=== PATIENT | female | born 1940 | race Caucasian/White ===

== ENCOUNTER 2017-08-16 21:38 | Inpatient (IN) ==
[2017-08-16] MEDS ORDERED: 0.9 % Sodium Chloride 1,000 ML ONE (23:30)
[2017-08-16] MEDS ORDERED: *HR* OxyCODONE Immed Rel 5 MG TABLET PO PRN (23:33)
[2017-08-16] MEDS ORDERED: 0.9 % Sodium Chloride 1,000 ML IVC ONE (23:33)
[2017-08-16] MEDS ORDERED: Naloxone 0.4 MG/ML INJ IVP PRN (23:33)
[2017-08-16] MEDS ORDERED: *HR* HYDROcodone/Acet 5/325 mg TABLET PO PRN (23:33)
[2017-08-16] MEDS ORDERED: Acetaminophen 325 MG TABLET PO PRN (23:33)
[2017-08-16] MEDS ORDERED: Ondansetron 4 MG/2 ML VIAL IVP PRN (23:46)
--- NOTE | 2017-08-16 23:51 | Internal Med History&Physical ---
<BryantIsaiah farrell - Last Filed: 08/16/17 23:55> Date of Encounter: 08/16/17 Time of Encounter: 23:47 Assessment and Plan (1) UTI (urinary tract infection) Current visit: Yes Status: Acute - Strongly suspected urinary tract infection given symptoms - Complicated by left nephrolithiasis measuring 13 mm as well as large bladder calcification measuring 3.6 x 3.7 cm - Urinalysis and urine culture pending - Started on Rocephin and [facility] emergency room, will continue - Lactic acid of 6.8 most recently however patient does not meet sirs criteria - Received 3 L of normal saline. Borderline hypertension. Vitals otherwise normal - WBC of 27.4, BUN/creatinine of 47/2.77 - Blood cultures collected at [facility]. Plan - Given an additional liter of saline, no history of CHF - Repeat lab results pending, will trend - Continue ceftriaxone day #1 - We will have low threshold for central line placement if hypotension persists - Consult to urology for stones, appreciate recommendations Qualifiers: Urinary tract infection type: acute cystitis Hematuria presence: without hematuria Qualified Code(s): N30.00 - Acute cystitis without hematuria (2) Lactic acidosis Current visit: Yes Status: Acute - Lactic acid [facility] elevated at 6.6, trended to 6.8 - Likely secondary to urinary tract infection with suspicion of septic shock however patient does not meet sirs criteria - We will repeat lab results and give an additional 1 L saline bolus - Management as above (3) Acute renal failure Current visit: Yes Status: Acute - BUNs/creatinine in [facility] of 47/2.77 - Baseline creatinine within normal limits at 0.6- 0.8 - Possible etiologies include obstructive given large bladder stone as below versus hypotension and shock Plan - We will replete labs after patient has been given 3 L normal saline boluses - Consult to urology, appreciate recommendations - We will continue to monitor and avoid nephrotoxic agents Qualifiers: Acute renal failure type: unspecified Qualified Code(s): N17.9 - Acute kidney failure, unspecified (4) Nephrolithiasis Current visit: Yes Status: Acute - As above for urinary tract infection - Consult to urology, appreciate recommendations (5) Bladder stone Current visit: Yes Status: Acute As above for UTI CT scan in [facility] emergency room showed a large 3.6 cm x 3.7 cm bladder calcification Consult to urology (6) CAD (coronary artery disease) Current visit: Yes Status: Chronic - History of CAD status post stents and atrial pacemaker No current complaints chest pain Continue home medications Qualifiers: Coronary Disease-Associated Artery/Lesion type: [place] artery [place] vs. transplanted heart: [place] heart Associated angina: without angina Qualified Code(s): I25.10 - Atherosclerotic heart disease of [place] coronary artery without angina pectoris (7) Calcification of bladder Current visit: No Status: Acute (8) DVT prophylaxis Current visit: No Status: Acute Internal Medicine - H&P: HPI Chief complaint: Fall Admitted From: Hospital to Hospital Transfer Plans for Post Hospital Care: Transfer Care Home Care History of present illness: Ms. Benjamin is a 76 year old female with past medical history of hypertension, Alzheimer's dementia, CAD with atrial pacemaker, multiple sclerosis presented to [facility] after sustaining a fall at a [facility]. Patient states that she did not get dizzy, lightheaded, no loss of consciousness. She states that she was getting up to go to the bathroom and just lost her balance. She states that she has not been experiencing symptoms of fevers, chills, chest pain , shortness of breath, nausea, vomiting, abnormal bowel movements. She does admit to some dysuria as well as incontinence over the past couple days. Denies any symptoms of urgency, frequency. She is currently not experiencing any pain. She has had multiple episodes of urinary tract infections in the past which resolved with antibiotics. In the [facility] emergency room, patient's vitals were significant for low pressure of 77/41. EKG shows atrial paced rhythm. They did obtain a CT scan of the head which shows a possible remote lacunar infarction, a CT showed trace pleural effusions and left lower lobe atelectasis. Abdominal CT showed a large left renal pelvis stone measuring approximately 13 mm and nonobstructing as well as a large bladder stone measuring 3.6 x 3.7 cm. Also noted were diverticulosis and spondylosis of the cervical spine. Labs obtained were significant for a WBC of 27.4, potassium 5.5, BUN/creatinine of 47/2.77, lactic acid of 6.6 which was repeated to 6.8, troponin 0.09. She was given a total of 3 L of normal saline as well as ceftriaxone for presumed urinary tract infection. After 2 L of normal saline patient's blood pressure did remain tremulous with a systolic in the 80s to 90s. Due to concern of septic shock, and no availability for an ultrasound to place a central venous catheter, she was transferred to [facility] ICU. She did also receive glucagon as she is on a home beta raiza. On presentation to intensive care unit, vital signs significant for borderline hypotension. She will be given an additional 1 L normal saline bolus as well as maintenance fluids. Past Med Surg Social Fam HX - Past Medical History Medical history: dementia, hyperlipidemia, hypertension, myocardial infarction, valvular heart disease, other Psychiatric history: anxiety - Past Surgical History Surgical History: no surgical history - Social History Smoking Status: Never smoker Smokeless Tobacco Status: No Alcohol use: none Drug use: none Internal Medicine - H&P: Meds Amlodipine Besylate 10 mg PO DAILY 05/01/16 [History] Atorvastatin [Lipitor] 20 mg PO HS 05/01/16 [History] Clopidogrel Bisulfate [Plavix] 75 mg PO DAILY 05/01/16 [History] Donepezil HCl [Aricept] 10 mg PO DAILY 05/01/16 [History] Isosorbide MONOnitrate (24 HR) [Imdur] 60 mg PO DAILY 05/01/16 [History] Memantine HCl [Namenda Xr] 28 mg PO DAILY 05/01/16 [History] Metoprolol Tartrate [Lopressor] 50 mg PO BID 05/01/16 [History] Potassium Chloride [Klor-Con 10] 20 meq PO DAILY 05/01/16 [History] Multivitamin/Iron/Folic Acid [Centrum Complete Multivit Tab] 1 tab PO DAILY [History] HYDROcodone/Acet 5/325 mg [[place] 5-325 mg] 1 - 2 tab PO Q4H PRN 7 Days tablet 05/10/16 [Rx] Sennosides/Docusate Sodium [Senna Plus] 1 each PO BID tablet 05/10/16 [Rx] Memantine HCl [Namenda Xr] 28 mg PO DAILY 08/16/17 [History] 3 Allergy/AdvReac Type Severity Reaction Status Date / Time codeine AdvReac Gastrointestinal Verified 08/16/17 21:58 Upset Penicillins AdvReac Gastrointestinal Verified 08/16/17 21:58 Upset Sulfa (Sulfonamide AdvReac Gastrointestinal Verified 08/16/17 21:58 Antibiotics) Upset sulfamethoxazole AdvReac Gastrointestinal Verified 08/16/17 21:58 [From Bactrim] Upset trimethoprim [From Bactrim] AdvReac Gastrointestinal Verified 08/16/17 21:58 Upset All Systems PM: A 10-system review of systems was performed and is negative for pertinent findings except as documented above in the HPI. Review of systems: - Constitutional: Denies fevers, chills, weight loss, generalized fatigue - Head/Neck: Admits to headache. Denies neck stiffness - CVS: Denies chest pain, palpitations, ARCHER, orthopnea, edema, PND, - Pulm: Admits to chronic cough. Denies SOB,sputum, hematemesis, wheezing - GI: Denies abdominal pain, anorexia, nausea, vomiting, diarrhea, constipation , melena - : Admits to dysuria, incontinence. Denies increased frequency, urgency, hematuria, - MSK: Denies joint pain, limited ROM - Skin: Denies rashes, ulcers, color changes, - Neuro: Denies paresthesias, focal deficits, ataxia, numbness, tingling. - Constitutional Vitals: Pulse BP 98 130/70 08/16/17 23:20 08/16/17 23:20 Exam: Gen.: Vitals noted. No acute distress. AAOx3. Resting comfortably in bed, musty odor present on examination HEENT: PERRL/EOMI, oropharynx clear, Normocephalic, atraumatic. Mildly dry mucous membranes Cardiac: RRR, no murmur, +S1/S2 Pulmonary: CTA bilaterally, no wheezes, rales or rhonchi, equal chest expansion Abdomen: soft, nontender, BS noted, no guarding Extremities: no BLE edema, nontender calf, no cyanosis or clubbing Neuro: A&Ox3, moves all extremities, no focal deficits Psych: Appropriate mood and behavior <Loren Brown - Last Filed: 08/17/17 03:57> Date of Encounter: 08/16/17 Internal Medicine - H&P: HPI History of present illness: Ms. Benjamin is a 76 year old female All Systems PM: A 10-system review of systems was performed and is negative for pertinent findings except as documented above in the HPI. - Constitutional Vitals: Temp Pulse Resp BP Pulse Ox 98.4 F 70 17 114/77 90 08/17/17 00:00 08/17/17 03:37 08/17/17 03:37 08/17/17 03:37 08/17/17 03:37 Internal Med - H&P Results - Labs CBC & Chem 7: 08/17/17 00:46 08/17/17 00:46 Labs: Short CBC 08/17/17 Range/Units 00:46 WBC 19.6 H (4.3-11.1) K/mcL Hgb 10.2 L D (11.5-15.4) g/dL Hct 31.8 L (35.3-44.9) % Plt Count 79 L (140-400) K/mcL Neutrophils # 16.8 H (1.6-8.9) K/mcL BMP 08/17/17 00:46 Sodium 144 Potassium 4.4 Chloride 120 H Carbon Dioxide 16 L BUN 44 H Creatinine 1.98 H Glucose 104 Calcium 7.9 L Cardiac Enzymes 08/17/17 Range/Units 00:46 Troponin I 0.07 H* (< 0.04) ng/mL Urine 08/16/17 Range/Units 23:50 Urine Color Red A (Yellow) Urine Clarity Turbid A (Clear) Urine pH 7.5 (5.0-8.0) pH Units Ur Specific [place] 1.012 (1.010-1.025) Urine Protein 100 H (Neg-Trace) mg/dL Urine Glucose (UA) Normal (Normal) mg/dL - Attending Attestation I examined this patient and my medical decision-making was reviewed with the Resident Physician Dr. Douglas. I agree with the documented findings, disposition and treatment plan as described except to the extent set forth below. Ms. Benjamin is a 76 year old female with past medical history of hypertension, Alzheimer's dementia, CAD with atrial pacemaker, multiple sclerosis presented to [facility] after sustaining a fall at a [facility]. She happened to have sepsis with UTI and later pt BP dropped down to 80's. So pt was transferred to our ICU for further care. Now pt is alert, awake and Oriented to self. Denied any CP / SOB. Gen: A, A, O x to self Chest: Diminished BS b/l no crackles Heart: S1S2+ A/p 1. Septic shock 2. UTI Significantly elevated Lactic acid @ 6.8 BP Improving with IV hydration continue aggressive IV hydration empirical abx Rocephin Blood cx, urine cx - P 3. OMI - due to sepsis + Dehydration cont IV hydration close monitor Cr 4. Elevated troponin due to demand ischemia with septic shock cont trend on trop no further work needed 5. Large bladder calculi , Left renal calculi Will consult Urology in AM
[2017-08-17 00:22] LABS: Bilirubin,Urine Negative (Negative); Blood,Urine Large (Negative); Clarity,Urine Turbid (Clear); Color,Urine Red (Yellow); Glucose,Urine (UA) Normal (Normal); Ketones,Urine Trace mg/dL (Negative); Leukocyte Esterase,Urine Large (Negative); Nitrite,Urine Negative (Negative); PH,Urine 7.5 pH Units (5.0-8.0); Protein,Urine 100 mg/dL (Neg-Trace); Specific Gravity,Urine 1.012 (1.010-1.025); Urobilinogen,Urine Normal (Normal)
[2017-08-17] MEDS: 0.9 % Sodium Chloride 1,000 ML IVC SCH ×2 (00:39→10:59)
[2017-08-17 00:48] LABS: Bacteria,Urine Present per hpf (None-Few); WBC,Urine Present per hpf (0-3)
[2017-08-17 00:49] LABS: RBC,Urine Present per hpf (0-3)
[2017-08-17 00:59] LABS: Basophils % 0.2 %; Hemoglobin 10.2 g/dL (11.5-15.4); Red Cell Distribution Width 14.7 % (11.5-14.5)
[2017-08-17 01:01] LABS: Hematocrit 31.8 % (35.3-44.9); Immature Granulocytes % 3.1 % (0-4); Immature Platelets 4.9 % (1.1-6.1); Lymphocytes # 1.5 K/mcL (0.6-4.6); Lymphocytes % 7.4 %; Mean Corpuscular HGB Conc 32.1 g/dL (31.6-35.5); Mean Corpuscular Hemoglobin 31.3 pg (28.0-33.3); Mean Corpuscular Volume 97.5 fL (83.0-100.0); Mean Platelet Volume 11.3 fL (9.4-12.4); Monocytes # 0.7 K/mcL (0.0-1.3); Monocytes % 3.4 %; Red Blood Count 3.26 M/mcL (3.82-4.97); Segmented Neutrophils % 85.9 %
[2017-08-17 01:06] LABS: Neutrophils # 16.8 K/mcL (1.6-8.9); Platelet Count 79 K/mcL (140-400)
[2017-08-17 01:20] LABS: Calcium 7.9 mg/dL (8.6-10.3); Potassium 4.4 mEq/L (3.5-5.1)
[2017-08-17 02:11] LABS: Toxic Granulation Present (Not Present)
[2017-08-17 02:12] LABS: Hypochromasia Present (Not Present); Platelet Estimate Decreased (Normal); Toxic Vacuolation Present (Not Present)
[2017-08-17 05:24] LABS: Basophils % 0.3 %; Mean Corpuscular HGB Conc 31.3 g/dL (31.6-35.5); Mean Corpuscular Volume 100.5 fL (83.0-100.0); Mean Platelet Volume 11.7 fL (9.4-12.4); Red Cell Distribution Width 14.8 % (11.5-14.5)
[2017-08-17 05:26] LABS: Basophils # 0.1 K/mcL (0.0-0.2); Hematocrit 40.3 % (35.3-44.9); Hemoglobin 12.6 g/dL (11.5-15.4); Immature Granulocytes % 3.8 % (0-4); Immature Platelets 5.5 % (1.1-6.1); Lymphocytes # 1.4 K/mcL (0.6-4.6); Lymphocytes % 6.8 %; Mean Corpuscular Hemoglobin 31.4 pg (28.0-33.3); Monocytes # 0.7 K/mcL (0.0-1.3); Monocytes % 3.5 %; Neutrophils # 17.2 K/mcL (1.6-8.9); Nucleated Red Blood Cells 0.1 /100 WBC (0); Red Blood Count 4.01 M/mcL (3.82-4.97); Segmented Neutrophils % 85.6 %
[2017-08-17 05:28] LABS: Platelet Count 81 K/mcL (140-400)
[2017-08-17 05:49] LABS: Calcium 8.9 mg/dL (8.6-10.3); Magnesium 1.8 mg/dL (1.6-2.6); Potassium 4.6 mEq/L (3.5-5.1)
[2017-08-17] MEDS ORDERED: *HR* Heparin 5,000 UNIT/ML VIAL SQ SCH (06:00)
[2017-08-17 06:12] LABS: Platelet Estimate Decreased (Normal)
[2017-08-17] MEDS ORDERED: Vancomycin Oral Soln 250 MG/5 ML UDC PO SCH (09:00)
[2017-08-17] MEDS ORDERED: Sennosides/Docusate Sodium TABLET PO SCH (09:00)
[2017-08-17] MEDS ORDERED: *HR* Dextrose 50 % in Water (Syg) 50 ML SYRINGE IVP PRN ×2 (10:51→11:16)
[2017-08-17] MEDS ORDERED: Dextrose Gel 15 GM/37.5 ML TUBE PO PRN ×4 (10:51→11:16)
[2017-08-17] MEDS ORDERED: D5% in Water 1,000 ML IVC PRN ×2 (10:51→11:16)
[2017-08-17] MEDS ORDERED: Acetaminophen 325 MG TABLET PO PRN (11:16)
[2017-08-17] MEDS ORDERED: 0.9 % Sodium Chloride 1,000 ML IVC SCH (11:16)
[2017-08-17] MEDS ORDERED: *HR* OxyCODONE Immed Rel 5 MG TABLET PO PRN (11:16)
[2017-08-17] MEDS ORDERED: Naloxone 0.4 MG/ML INJ IVP PRN (11:16)
[2017-08-17] MEDS ORDERED: *HR* HYDROcodone/Acet 5/325 mg TABLET PO PRN (11:16)
[2017-08-17] MEDS ORDERED: Ondansetron 4 MG/2 ML VIAL IVP PRN (11:16)
--- NOTE | 2017-08-17 13:07 | Internal Med Progress Note ---
Date of Encounter: 08/17/17 Time of Encounter: 11:30 - Assessment and plan (1) Severe sepsis Current Visit: Yes Status: Acute Assessment and plan: Patient presenting with severe sepsis due to Escherichia coli bacteremia. Blood culture positive for Escherichia coli. Patient also has underlying C. difficile colitis. Treating with IV Rocephin for the Escherichia coli bacteremia and UTI. Patient is receiving vancomycin orally for C. difficile colitis. Blood pressure has improved but lactic acid remains elevated. Continue IV fluids. Monitor vital signs closely. High risk for complications. (2) UTI (urinary tract infection) Current Visit: Yes Status: Acute Assessment and plan: With sepsis and bacteremia from Escherichia coli. Continue current antibiotics Qualifiers: Urinary tract infection type: acute cystitis Hematuria presence: without hematuria Qualified Code(s): N30.00 - Acute cystitis without hematuria (3) C. difficile colitis Current Visit: Yes Status: Acute Assessment and plan: Continue oral vancomycin. IV hydration. Patient developing hyperchloremic acidosis with normal saline. Will change fluids to lactated Ringer's. (4) Elevated troponin Current Visit: Yes Status: Acute Assessment and plan: Likely due to demand ischemia. Remains adynamic. Troponin at 0.07. No chest pain. (5) Acute renal failure Current Visit: Yes Status: Acute Assessment and plan: Due to severe sepsis. Renal function is improving. Continue IV fluids. Follow renal function closely. Avoid nephrotoxic agents. Qualifiers: Acute renal failure type: with acute tubular necrosis Qualified Code(s): N17.0 - Acute kidney failure with tubular necrosis (6) CAD (coronary artery disease) Current Visit: Yes Status: Chronic Assessment and plan: Continue home medications. On Plavix. Qualifiers: Coronary Disease-Associated Artery/Lesion type: [place] artery [place] vs. transplanted heart: [place] heart Associated angina: without angina Qualified Code(s): I25.10 - Atherosclerotic heart disease of [place] coronary artery without angina pectoris (7) DVT prophylaxis Current Visit: Yes Status: Acute Assessment and plan: With subcutaneous heparin (8) Lactic acidosis Current Visit: Yes Status: Acute Assessment and plan: Improving. 2.9 today. We will continue to trend - Time Spent With Patient Total time spent is greater than 50% in coordination of care (as documented) at patient's floor/unit and/or counseling patient: - Subjective Interval history: Patient is feeling much better today. Abdominal pain improved. Having diarrhea. No fever or chills overnight. No nausea or vomiting. Denies any palpitations or dizziness. - Constitutional Vitals: Temp Pulse Resp BP Pulse Ox 98.9 F 70 14 96/35 96 08/17/17 12:18 08/17/17 08:00 08/17/17 10:00 08/17/17 10:00 08/17/17 10:00 General appearance: Present: cooperative, A&O X 3, obese, answers questions appropriately - Neck Neck exam general surgery: Present: supple, trachea midline. Absent: lymphadenopathy - Respiratory Respiratory exam: Present: CTAB. Absent: accessory muscle use, rales, rhonchi, wheezes - Cardiovascular Cardiovascular exam: Present: RRR, +S1, +S2. Absent: diastolic murmur, gallop, rubs, systolic murmur - GI/Abdominal GI/Abdominal exam: Present: normal bowel sounds, soft, no peritoneal signs. Absent: distended, tenderness - Extremities Exam Extremities exam: Present: warm, radial pulses palpable and symmetrical. Absent : calf tenderness, cyanotic, pedal edema - Neurological Exam Neurological exam: Present: alert, oriented X3, no focal deficits. Absent: pronater drift, facial droop, speech deficit - Skin Skin exam: Present: dry, intact Internal Medicine: Result - Labs CBC & Chem 7: 08/17/17 05:12 08/17/17 05:12 Labs: Short CBC 08/17/17 08/17/17 Range/Units 00:46 05:12 WBC 19.6 H 20.1 H (4.3-11.1) K/mcL Hgb 10.2 L D 12.6 D (11.5-15.4) g/dL Hct 31.8 L 40.3 (35.3-44.9) % Plt Count 79 L 81 L (140-400) K/mcL Neutrophils # 16.8 H 17.2 H (1.6-8.9) K/mcL BMP 08/17/17 08/17/17 00:46 05:12 Sodium 144 144 Potassium 4.4 4.6 Chloride 120 H 117 H Carbon Dioxide 16 L 17 L BUN 44 H 43 H Creatinine 1.98 H 1.93 H Glucose 104 68 L Calcium 7.9 L 8.9 Cardiac Enzymes 08/17/17 08/17/17 Range/Units 00:46 07:31 Troponin I 0.07 H* 0.07 H* (< 0.04) ng/mL Urine 08/16/17 Range/Units 23:50 Urine Color Red A (Yellow) Urine Clarity Turbid A (Clear) Urine pH 7.5 (5.0-8.0) pH Units Ur Specific [place] 1.012 (1.010-1.025) Urine Protein 100 H (Neg-Trace) mg/dL Urine Glucose (UA) Normal (Normal) mg/dL Consult Discharge Plan - Plan Referrals: Ha Evans MD [Primary Care Provider] -
[2017-08-17] MEDS: Vancomycin Oral Soln 250 MG/5 ML UDC PO SCH ×3 (14:52→21:52)
[2017-08-17] MEDS: Ringers Solution, Lactated 1,000 ML IVC SCH (14:53)
--- NOTE | 2017-08-17 17:51 | Urology - Consult Note ---
Date of Encounter: 08/17/17 Time of Encounter: 17:48 - Assessment and Plan (1) Bladder stone Current Visit: Yes Status: Acute Assessment and plan: I discussed management of her bladder stone with a cystolitholapaxy. This can be done once her urinary tract infection has been well cleared. She should continue on IV antibiotics for now. Await sensitivities. (2) Nephrolithiasis Current Visit: Yes Status: Acute Assessment and plan: We can treat her left-sided stone with a left ureteroscopy once her infection is cleared. At this point, I do not think she needs urgent placement of stent. I will continue to monitor with you. If her clinical status worsens, then I can place a stent if necessary. (3) UTI (urinary tract infection) Current Visit: Yes Status: Acute Assessment and plan: Continue IV antibiotics. Await urine culture results. Qualifiers: Urinary tract infection type: acute cystitis Hematuria presence: without hematuria Qualified Code(s): N30.00 - Acute cystitis without hematuria Urology CN:HPI Consult date: 08/17/17 Reason for consult Urology: Other (UTI, bladder stone) History of present illness: 76-year-old woman presents with concern for a urinary tract infection with a bladder stone and kidney stone on the left side. She was transferred to the intensive care unit for a UTI with sepsis. A blood culture was positive for Escherichia coli. During her workup she had a CT scan which showed a 3.7 cm bladder stone as well as a nonobstructing left renal stone. Today, she says she is feeling better. She is not having much in way of pain. She says she is urinating on her own. Past Med Surg Social Fam HX - Past Medical History Medical history: dementia, hyperlipidemia, hypertension, myocardial infarction, valvular heart disease, other Psychiatric history: anxiety - Past Surgical History Surgical History: no surgical history - Social History Smoking Status: Never smoker Smokeless Tobacco Status: No Alcohol use: none Drug use: none - Family History Daughter Hx Family Genitourinary Disorders: No Medications and Allergies Amlodipine Besylate 10 mg PO DAILY 05/01/16 [History] Atorvastatin [Lipitor] 20 mg PO HS 05/01/16 [History] Clopidogrel Bisulfate [Plavix] 75 mg PO DAILY 05/01/16 [History] Donepezil HCl [Aricept] 10 mg PO DAILY 05/01/16 [History] Isosorbide MONOnitrate (24 HR) [Imdur] 60 mg PO DAILY 05/01/16 [History] Metoprolol Tartrate [Lopressor] 50 mg PO BID 05/01/16 [History] Potassium Chloride [Klor-Con 10] 20 meq PO DAILY 05/01/16 [History] Multivitamin/Iron/Folic Acid [Centrum Complete Multivit Tab] 1 tab PO DAILY [History] HYDROcodone/Acet 5/325 mg [[place] 5-325 mg] 1 - 2 tab PO Q4H PRN 7 Days tablet 05/10/16 [Rx] Sennosides/Docusate Sodium [Senna Plus] 1 each PO BID tablet 05/10/16 [Rx] Memantine HCl [Namenda Xr] 28 mg PO DAILY 08/16/17 [History] Oxybutynin Chloride [Ditropan Xl] 5 mg PO DAILY 08/17/17 [History] Pantoprazole Sodium 40 mg PO DAILY 08/17/17 [History] 3 Allergy/AdvReac Type Severity Reaction Status Date / Time codeine AdvReac Gastrointestinal Verified 08/16/17 21:58 Upset Penicillins AdvReac Gastrointestinal Verified 08/16/17 21:58 Upset Sulfa (Sulfonamide AdvReac Gastrointestinal Verified 08/16/17 21:58 Antibiotics) Upset sulfamethoxazole AdvReac Gastrointestinal Verified 08/16/17 21:58 [From Bactrim] Upset trimethoprim [From Bactrim] AdvReac Gastrointestinal Verified 08/16/17 21:58 Upset Review of Systems - Constitutional chills, fever(s) - EENT Nose, mouth and throat: no dizziness - Cardiovascular no chest pain - Respiratory no dyspnea - Gastrointestinal no nausea, no vomiting - Genitourinary Genitourinary: no flank pain, no hematuria - Musculoskeletal no back pain - Integumentary no erythema, no rash - Neurological no weakness - Psychiatric no suicidal ideation - Hematologic/Lymphatic no easy bleeding - Allergic/Immunologic no wheezing Exam Initial Vital Signs Pulse Resp BP Pulse Ox 98 14 130/70 97 08/16/17 23:20 08/16/17 23:20 08/16/17 23:20 08/16/17 23:20 - General physical appearance Present: well developed, well nourished, no distress - Eyes Absent: icteric - ENT Present: normal nares - Neck Present: trachea midline - Respiratory Present: normal respiratory effort - Cardiovascular Cardiovascular exam IM: RRR - Abdomen Abdomen: Present: soft - Integumentary Present: no rash - Neurologic Present: normal coordination - Musculoskeletal Present: other (No peripheral edema) Urology Results - Labs 08/17/17 05:12 08/17/17 05:12 Abnormal lab results WBC 20.1 K/mcL (4.3-11.1) H 08/17/17 05:12 MCV 100.5 fL (83.0-100.0) H 08/17/17 05:12 MCHC 31.3 g/dL (31.6-35.5) L 08/17/17 05:12 RDW 14.8 % (11.5-14.5) H 08/17/17 05:12 Plt Count 81 K/mcL (140-400) L 08/17/17 05:12 Neutrophils # 17.2 K/mcL (1.6-8.9) H 08/17/17 05:12 Nucleated RBCs/100 WBC 0.1 /100 WBC (0) H 08/17/17 05:12 Toxic Granulation Present (Not Present) A 08/17/17 00:46 Toxic Vacuolation Present (Not Present) A 08/17/17 00:46 Platelet Estimate Decreased (Normal) L 08/17/17 05:12 Hypochromasia Present (Not Present) A 08/17/17 00:46 Chloride 117 mEq/L (98-107) H 08/17/17 05:12 Carbon Dioxide 17 mEq/L (23-29) L 08/17/17 05:12 BUN 43 mg/dL (8-23) H 08/17/17 05:12 Creatinine 1.93 mg/dL (0.60-1.20) H 08/17/17 05:12 Est GFR ( Amer) 31 (> 60) L 08/17/17 05:12 Est GFR (Non-Af Amer) 25 (> 60) L 08/17/17 05:12 Glucose 68 mg/dL (70-105) L 08/17/17 05:12 Calculated Osmolality 307 (280-300) H 08/17/17 05:12 Lactic Acid 2.9 mmol/L (0.5-2.2) H 08/17/17 12:26 Troponin I 0.07 ng/mL (< 0.04) H* 08/17/17 07:31 Urine Color Red (Yellow) A 08/16/17 23:50 Urine Clarity Turbid (Clear) A 08/16/17 23:50 Urine Protein 100 mg/dL (Neg-Trace) H 08/16/17 23:50 Urine Ketones Trace mg/dL (Negative) H 08/16/17 23:50 Urine Blood Large (Negative) H 08/16/17 23:50 Ur Leukocyte Esterase Large (Negative) H 08/16/17 23:50 Diabetes panel 08/17/17 08/17/17 Range/Units 00:46 05:12 Sodium 144 144 (136-145) mEq/L Potassium 4.4 4.6 (3.5-5.1) mEq/L Chloride 120 H 117 H (98-107) mEq/L Carbon Dioxide 16 L 17 L (23-29) mEq/L BUN 44 H 43 H (8-23) mg/dL Creatinine 1.98 H 1.93 H (0.60-1.20) mg/dL Glucose 104 68 L (70-105) mg/dL Calcium 7.9 L 8.9 (8.6-10.3) mg/dL Calcium panel 08/17/17 08/17/17 Range/Units 00:46 05:12 Calcium 7.9 L 8.9 (8.6-10.3) mg/dL Pituitary panel 08/17/17 08/17/17 Range/Units 00:46 05:12 Sodium 144 144 (136-145) mEq/L Potassium 4.4 4.6 (3.5-5.1) mEq/L Chloride 120 H 117 H (98-107) mEq/L Carbon Dioxide 16 L 17 L (23-29) mEq/L BUN 44 H 43 H (8-23) mg/dL Creatinine 1.98 H 1.93 H (0.60-1.20) mg/dL Glucose 104 68 L (70-105) mg/dL Calcium 7.9 L 8.9 (8.6-10.3) mg/dL Adrenal panel 08/17/17 08/17/17 Range/Units 00:46 05:12 Sodium 144 144 (136-145) mEq/L Potassium 4.4 4.6 (3.5-5.1) mEq/L Chloride 120 H 117 H (98-107) mEq/L Carbon Dioxide 16 L 17 L (23-29) mEq/L BUN 44 H 43 H (8-23) mg/dL Creatinine 1.98 H 1.93 H (0.60-1.20) mg/dL Glucose 104 68 L (70-105) mg/dL Calcium 7.9 L 8.9 (8.6-10.3) mg/dL All other labs normal. - Imaging CT scan - abdomen: report reviewed, image reviewed CT scan - pelvis: report reviewed, image reviewed Consult Discharge Plan - Plan Referrals: Ha Evans MD [Primary Care Provider] -
[2017-08-17] MEDS: *HR* Heparin 5,000 UNIT/ML VIAL SQ SCH (19:36)
[2017-08-17] MEDS: Sennosides/Docusate Sodium TABLET PO SCH (20:26)
[2017-08-17] MEDS: cefTRIAXone 2,000 MG in Water for inj. (sterile) 20 ML 20 ML IVP SCH (20:26)
[2017-08-17] MEDS ORDERED: cefTRIAXone 2,000 MG in Water for inj. (sterile) 20 ML 20 ML IVP SCH (21:00)
[2017-08-18] MEDS: Ringers Solution, Lactated 1,000 ML IVC SCH ×2 (00:24→08:56)
[2017-08-18] MEDS: Vancomycin Oral Soln 250 MG/5 ML UDC PO SCH ×5 (01:32→20:46)
[2017-08-18] MEDS: *HR* Heparin 5,000 UNIT/ML VIAL SQ SCH ×2 (05:04→17:10)
[2017-08-18 05:17] LABS: Basophils % 0.2 %; Eosinophils % 0.2 %; Hematocrit 32.5 % (35.3-44.9); Hemoglobin 10.7 g/dL (11.5-15.4); Immature Granulocytes % 2.7 % (0-4); Immature Platelets 4.9 % (1.1-6.1); Lymphocytes % 5.4 %; Mean Corpuscular HGB Conc 32.9 g/dL (31.6-35.5); Mean Corpuscular Hemoglobin 31.2 pg (28.0-33.3); Mean Corpuscular Volume 94.8 fL (83.0-100.0); Mean Platelet Volume 12.1 fL (9.4-12.4); Monocytes # 0.7 K/mcL (0.0-1.3); Monocytes % 3.9 %; Neutrophils # 15.9 K/mcL (1.6-8.9); Red Blood Count 3.43 M/mcL (3.82-4.97); Red Cell Distribution Width 14.4 % (11.5-14.5); Segmented Neutrophils % 87.6 %
[2017-08-18 05:38] LABS: BUN/Creatinine Ratio 31 (6-26); Blood Urea Nitrogen 29 mg/dL (8-23); Calcium 8.8 mg/dL (8.6-10.3); Carbon Dioxide 20 mEq/L (23-29); Chloride 115 mEq/L (98-107); Glucose 98 mg/dL (70-105); Osmolality,Calculated 302 (280-300); Potassium 2.9 mEq/L (3.5-5.1); Sodium 143 mEq/L (136-145); eGFR For African Americans > 60 (> 60); eGFR For Non-African Americans 58 (> 60)
[2017-08-18 05:42] LABS: Platelet Count 70 K/mcL (140-400)
[2017-08-18 05:44] LABS: Platelet Estimate Decreased (Normal)
[2017-08-18] MEDS ORDERED: Potassium Chloride 40 MEQ, Lidocaine 1% 2 ML in D5% in Water 500 ML IVPB ONE (05:54)
[2017-08-18] MEDS: Sennosides/Docusate Sodium TABLET PO SCH ×2 (08:55→20:47)
--- NOTE | 2017-08-18 13:51 | Internal Med Progress Note ---
Date of Encounter: 08/18/17 Time of Encounter: 10:25 - Assessment and plan (1) Severe sepsis Current Visit: Yes Status: Acute Assessment and plan: Due to urinary tract infection with nephrolithiasis. With Escherichia coli bacteremia. Continue ceftriaxone. Sensitivity results still pending. Clinically patient is doing better. WBC count is improving. Treating for C. difficile colitis with oral vancomycin. Moderate risk for complications at this time. (2) UTI (urinary tract infection) Current Visit: Yes Status: Acute Assessment and plan: Continue current antibiotics. Urology consult appreciated Qualifiers: Urinary tract infection type: acute cystitis Hematuria presence: without hematuria Qualified Code(s): N30.00 - Acute cystitis without hematuria (3) C. difficile colitis Current Visit: Yes Status: Acute Assessment and plan: On oral vancomycin. Frequency of diarrhea appears to be improving. We will replace electrolytes. (4) Elevated troponin Current Visit: Yes Status: Acute Assessment and plan: adynamic likely related to underlying sepsis and demand ischemia. (5) Acute renal failure Current Visit: Yes Status: Resolved Assessment and plan: Now resolved. Creatinine back to normal. Will stop IV fluids at this time. Qualifiers: Acute renal failure type: with acute tubular necrosis Qualified Code(s): N17.0 - Acute kidney failure with tubular necrosis (6) CAD (coronary artery disease) Current Visit: Yes Status: Chronic Assessment and plan: Continue Plavix Qualifiers: Coronary Disease-Associated Artery/Lesion type: [place] artery [place] vs. transplanted heart: [place] heart Associated angina: without angina Qualified Code(s): I25.10 - Atherosclerotic heart disease of [place] coronary artery without angina pectoris (7) DVT prophylaxis Current Visit: Yes Status: Acute Assessment and plan: On subcutaneous heparin (8) Lactic acidosis Current Visit: Yes Status: Resolved - Time Spent With Patient Total time spent is greater than 50% in coordination of care (as documented) at patient's floor/unit and/or counseling patient: - Subjective Interval history: Patient denies any abdominal pain. No nausea or vomiting. Diarrhea improving. Doing better overall. No fever or chills reported overnight. - Constitutional Vitals: Temp Pulse Resp BP Pulse Ox 99.7 F H 84 16 140/83 94 08/18/17 10:53 08/18/17 10:53 08/18/17 10:53 08/18/17 10:53 08/18/17 10:53 General appearance: Present: cooperative, A&O X 3, obese, answers questions appropriately - Neck Neck exam general surgery: Present: supple, trachea midline. Absent: lymphadenopathy - Respiratory Respiratory exam: Present: CTAB. Absent: accessory muscle use, rales, rhonchi, wheezes - Cardiovascular Cardiovascular exam: Present: RRR, +S1, +S2. Absent: diastolic murmur, gallop, rubs, systolic murmur - GI/Abdominal GI/Abdominal exam: Present: normal bowel sounds, soft, no peritoneal signs. Absent: distended, tenderness - Extremities Exam Extremities exam: Present: warm, radial pulses palpable and symmetrical. Absent : calf tenderness, cyanotic, pedal edema - Neurological Exam Neurological exam: Present: alert, oriented X3, no focal deficits. Absent: facial droop, speech deficit Internal Medicine: Result - Labs CBC & Chem 7: 08/18/17 05:01 08/18/17 05:01 Labs: Short CBC 08/18/17 Range/Units 05:01 WBC 18.1 H (4.3-11.1) K/mcL Hgb 10.7 L D (11.5-15.4) g/dL Hct 32.5 L (35.3-44.9) % Plt Count 70 L (140-400) K/mcL Neutrophils # 15.9 H (1.6-8.9) K/mcL BMP 08/18/17 05:01 Sodium 143 Potassium 2.9 L D Chloride 115 H Carbon Dioxide 20 L BUN 29 H Creatinine 0.94 Glucose 98 Calcium 8.8 Consult Discharge Plan - Plan Referrals: Ha Evans MD [Primary Care Provider] -
[2017-08-18] MEDS: cefTRIAXone 2,000 MG in Water for inj. (sterile) 20 ML 20 ML IVP SCH (20:45)
[2017-08-18] MEDS ORDERED: *HR* FentaNYL (PF) 100 MCG/2 ML VIAL IVP PRN (21:01)
[2017-08-19 04:13] LABS: Basophils % 0.2 %; Hemoglobin 10.8 g/dL (11.5-15.4); Immature Granulocytes % 0.8 % (0-4); Mean Corpuscular Volume 92.4 fL (83.0-100.0)
[2017-08-19 04:15] LABS: Eosinophils # 0.1 K/mcL (0.0-0.6); Eosinophils % 0.5 %; Hematocrit 32.7 % (35.3-44.9); Immature Platelets 7.4 % (1.1-6.1); Lymphocytes % 8.1 %; Mean Corpuscular Hemoglobin 30.5 pg (28.0-33.3); Mean Platelet Volume 11.8 fL (9.4-12.4); Monocytes # 0.6 K/mcL (0.0-1.3); Monocytes % 5.2 %; Neutrophils # 10.5 K/mcL (1.6-8.9); Red Blood Count 3.54 M/mcL (3.82-4.97); Red Cell Distribution Width 14.1 % (11.5-14.5); Segmented Neutrophils % 85.2 %
[2017-08-19 04:32] LABS: BUN/Creatinine Ratio 22 (6-26); Blood Urea Nitrogen 14 mg/dL (8-23); Calcium 8.8 mg/dL (8.6-10.3); Carbon Dioxide 23 mEq/L (23-29); Chloride 111 mEq/L (98-107); Glucose 84 mg/dL (70-105); Osmolality,Calculated 294 (280-300); Potassium 2.7 mEq/L (3.5-5.1); Sodium 142 mEq/L (136-145); eGFR For African Americans > 60 (> 60); eGFR For Non-African Americans > 60 (> 60)
[2017-08-19 05:11] LABS: Platelet Count 68 K/mcL (140-400)
[2017-08-19 05:12] LABS: Platelet Estimate Decreased (Normal)
[2017-08-19] MEDS: *HR* Heparin 5,000 UNIT/ML VIAL SQ SCH ×2 (05:46→17:47)
[2017-08-19] MEDS: Sennosides/Docusate Sodium TABLET PO SCH ×2 (09:49→21:45)
[2017-08-19] MEDS: Vancomycin Oral Soln 250 MG/5 ML UDC PO SCH ×4 (09:50→21:46)
--- NOTE | 2017-08-19 09:54 | Urology Progress Note ---
Date of Encounter: 08/19/17 Time of Encounter: 09:53 - Assessment and Plan (1) Bladder stone Current Visit: Yes Status: Acute Assessment and plan: 76-year-old woman with a large bladder stone and left renal stone. Her infection is clearing. I will proceed with a cystolitholapaxy and left ureteroscopic stone extraction as an outpatient. Urology will sign off. Please call with any questions. (2) Nephrolithiasis Current Visit: Yes Status: Acute (3) UTI (urinary tract infection) Current Visit: Yes Status: Acute Qualifiers: Urinary tract infection type: acute cystitis Hematuria presence: without hematuria Qualified Code(s): N30.00 - Acute cystitis without hematuria Progress Note Narrative: Patient transferred from the ICU yesterday. She is doing well. No fevers overnight. Objective Initial Vital Signs Pulse Resp BP Pulse Ox 98 14 130/70 97 08/16/17 23:20 08/16/17 23:20 08/16/17 23:20 08/16/17 23:20 - General physical appearance Present: well developed, well nourished, no distress - Respiratory Present: normal respiratory effort - Abdomen Present: soft - Labs 08/19/17 03:26 08/19/17 03:26 Diabetes panel 08/19/17 Range/Units 03:26 Sodium 142 (136-145) mEq/L Potassium 2.7 L (3.5-5.1) mEq/L Chloride 111 H (98-107) mEq/L Carbon Dioxide 23 (23-29) mEq/L BUN 14 (8-23) mg/dL Creatinine 0.65 (0.60-1.20) mg/dL Glucose 84 (70-105) mg/dL Calcium 8.8 (8.6-10.3) mg/dL Calcium panel 08/19/17 Range/Units 03:26 Calcium 8.8 (8.6-10.3) mg/dL Pituitary panel 08/19/17 Range/Units 03:26 Sodium 142 (136-145) mEq/L Potassium 2.7 L (3.5-5.1) mEq/L Chloride 111 H (98-107) mEq/L Carbon Dioxide 23 (23-29) mEq/L BUN 14 (8-23) mg/dL Creatinine 0.65 (0.60-1.20) mg/dL Glucose 84 (70-105) mg/dL Calcium 8.8 (8.6-10.3) mg/dL Adrenal panel 08/19/17 Range/Units 03:26 Sodium 142 (136-145) mEq/L Potassium 2.7 L (3.5-5.1) mEq/L Chloride 111 H (98-107) mEq/L Carbon Dioxide 23 (23-29) mEq/L BUN 14 (8-23) mg/dL Creatinine 0.65 (0.60-1.20) mg/dL Glucose 84 (70-105) mg/dL Calcium 8.8 (8.6-10.3) mg/dL Consult Discharge Plan - Plan Referrals: Ha Evans MD [Primary Care Provider] -
--- NOTE | 2017-08-19 10:44 | Internal Med Progress Note ---
Date of Encounter: 08/19/17 Time of Encounter: 09:30 - Assessment and plan (1) Severe sepsis Current Visit: Yes Status: Acute Assessment and plan: Due to acute urinary tract infection with Escherichia coli bacteremia. Continues to improve. WBC count trending down. Repeat cultures are pending. If cultures remain negative tomorrow, will plan on discharging patient back to skilled rehabilitation. She will need to complete 14 day antibiotic course. (2) UTI (urinary tract infection) Current Visit: Yes Status: Acute Assessment and plan: Urine culture negative. With associated nephrolithiasis. Urology recommends outpatient procedure to remove stone. Continue current antibiotics Qualifiers: Urinary tract infection type: acute cystitis Hematuria presence: without hematuria Qualified Code(s): N30.00 - Acute cystitis without hematuria (3) C. difficile colitis Current Visit: Yes Status: Acute Assessment and plan: Improving. Continue oral vancomycin (4) Elevated troponin Current Visit: Yes Status: Acute Assessment and plan: Adynamic. No chest pain. Likely from demand ischemia. (5) Acute renal failure Current Visit: Yes Status: Resolved Qualifiers: Acute renal failure type: with acute tubular necrosis Qualified Code(s): N17.0 - Acute kidney failure with tubular necrosis (6) CAD (coronary artery disease) Current Visit: Yes Status: Chronic Qualifiers: Coronary Disease-Associated Artery/Lesion type: [place] artery [place] vs. transplanted heart: [place] heart Associated angina: without angina Qualified Code(s): I25.10 - Atherosclerotic heart disease of [place] coronary artery without angina pectoris (7) DVT prophylaxis Current Visit: Yes Status: Acute (8) Lactic acidosis Current Visit: Yes Status: Resolved - Time Spent With Patient Total time spent is greater than 50% in coordination of care (as documented) at patient's floor/unit and/or counseling patient: - Subjective Interval history: Patient is feeling better today. Denies any abdominal pain. No nausea or vomiting. No shortness of breath. No chest pain. No palpitations. Frequency of diarrhea continues to improve. No fever reported overnight - Constitutional Vitals: Temp Pulse Resp BP Pulse Ox 98.4 F 74 16 123/73 91 08/19/17 07:07 08/19/17 07:07 08/19/17 07:07 08/19/17 07:07 08/19/17 07:07 General appearance: Present: cooperative, A&O X 3, obese, answers questions appropriately - Neck Neck exam general surgery: Present: supple, trachea midline. Absent: lymphadenopathy - Respiratory Respiratory exam: Present: prolonged expiratory phase. Absent: accessory muscle use, rales, rhonchi, wheezes - Cardiovascular Cardiovascular exam: Present: RRR, +S1, +S2. Absent: diastolic murmur, gallop, rubs, systolic murmur - GI/Abdominal GI/Abdominal exam: Present: normal bowel sounds, soft, no peritoneal signs. Absent: distended, tenderness - Extremities Exam Extremities exam: Present: warm, radial pulses palpable and symmetrical. Absent : calf tenderness, cyanotic, pedal edema - Neurological Exam Neurological exam: Present: CN II-XII intact, oriented X3, no focal deficits. Absent: facial droop, speech deficit - Skin Skin exam: Present: dry, intact Internal Medicine: Result - Labs CBC & Chem 7: 08/19/17 03:26 08/19/17 03:26 Labs: Short CBC 08/19/17 Range/Units 03:26 WBC 12.3 H (4.3-11.1) K/mcL Hgb 10.8 L (11.5-15.4) g/dL Hct 32.7 L (35.3-44.9) % Plt Count 68 L (140-400) K/mcL Neutrophils # 10.5 H (1.6-8.9) K/mcL BMP 08/19/17 03:26 Sodium 142 Potassium 2.7 L Chloride 111 H Carbon Dioxide 23 BUN 14 Creatinine 0.65 Glucose 84 Calcium 8.8 Consult Discharge Plan - Plan Referrals: Ha Evans MD [Primary Care Provider] -
[2017-08-19] MEDS: cefTRIAXone 2,000 MG in Water for inj. (sterile) 20 ML 20 ML IVP SCH (21:46)
[2017-08-19] MEDS ORDERED: Potassium Chloride 40 MEQ, Lidocaine 1% 2 ML in D5% in Water 500 ML IVPB ONE (23:40)
[2017-08-20] MEDS: *HR* Heparin 5,000 UNIT/ML VIAL SQ SCH (05:59)
[2017-08-20 06:57] VITALS: BP 146/84
[2017-08-20 07:46] LABS: Hemoglobin 11.4 g/dL (11.5-15.4)
[2017-08-20 07:47] LABS: Basophils % 0.4 %; Eosinophils # 0.3 K/mcL (0.0-0.6); Eosinophils % 2.9 %; Hematocrit 34.2 % (35.3-44.9); Immature Granulocytes % 3.7 % (0-4); Immature Platelets 6.6 % (1.1-6.1); Lymphocytes # 1.5 K/mcL (0.6-4.6); Lymphocytes % 15.9 %; Mean Corpuscular HGB Conc 33.3 g/dL (31.6-35.5); Mean Corpuscular Hemoglobin 30.8 pg (28.0-33.3); Mean Corpuscular Volume 92.4 fL (83.0-100.0); Mean Platelet Volume 11.2 fL (9.4-12.4); Monocytes # 0.9 K/mcL (0.0-1.3); Monocytes % 10.2 %; Neutrophils # 6.1 K/mcL (1.6-8.9); Segmented Neutrophils % 66.9 %
[2017-08-20 08:12] LABS: BUN/Creatinine Ratio 21 (6-26); Blood Urea Nitrogen 11 mg/dL (8-23); Calcium 8.5 mg/dL (8.6-10.3); Carbon Dioxide 25 mEq/L (23-29); Chloride 109 mEq/L (98-107); Glucose 93 mg/dL (70-105); Osmolality,Calculated 293 (280-300); Potassium 3.5 mEq/L (3.5-5.1); Sodium 142 mEq/L (136-145); eGFR For African Americans > 60 (> 60); eGFR For Non-African Americans > 60 (> 60)
[2017-08-20 08:28] LABS: Platelet Count 67 K/mcL (140-400)
[2017-08-20] MEDS ORDERED: Multivit/Ca/Min/Fe/FA 1 TAB TABLET PO SCH (09:00)
[2017-08-20] MEDS ORDERED: amLODIPine 5 MG TABLET PO SCH (09:00)
[2017-08-20] MEDS ORDERED: Isosorbide MONOnitrate (24 HR) 60 MG TAB.ER.24H PO SCH (09:00)
--- NOTE | 2017-08-20 09:11 | Discharge Summary ---
- NOTES TO OUTPATIENT PROVIDER Notes to Outpatient Provider: Patient admittted with severe sepsis and E. Coli Bacteremia from UTI. Was treated with IV antibiotics. Also had Cdiff colitis on presentation. Treated with oral vancomycin. Now doing much better. Stable to be discharged back to skilled rehabilitation. Orders not resulted at time of discharge: Pending orders 08/18/17 11:49 Culture,Blood [BC] Routine Date of Encounter: 08/20/17 Time of Encounter: 08:25 - Discharge Diagnosis (1) Severe sepsis Priority: Primary Status: Acute (2) UTI (urinary tract infection) Priority: Secondary Status: Acute Qualifiers: Urinary tract infection type: acute cystitis Hematuria presence: without hematuria Qualified Code(s): N30.00 - Acute cystitis without hematuria (3) C. difficile colitis Priority: Secondary Status: Acute (4) Elevated troponin Priority: Secondary Status: Acute (5) Acute renal failure Priority: Secondary Status: Resolved Qualifiers: Acute renal failure type: with acute tubular necrosis Qualified Code(s): N17.0 - Acute kidney failure with tubular necrosis (6) CAD (coronary artery disease) Priority: Secondary Status: Chronic Qualifiers: Coronary Disease-Associated Artery/Lesion type: [place] artery [place] vs. transplanted heart: [place] heart Associated angina: without angina Qualified Code(s): I25.10 - Atherosclerotic heart disease of [place] coronary artery without angina pectoris (7) Lactic acidosis Priority: Secondary Status: Resolved (8) DVT prophylaxis Priority: Secondary Status: Acute Hospital course: Ms. Benjamin is a 76 year old female patient with history of dementia, coronary artery disease was admitted here with severe sepsis related to acute urinary tract infection and C. difficile colitis. She had acute kidney injury on initial presentation and was slightly hypotensive. She did respond to intravenous fluids, IV antibiotics. One out of 2 sets of blood culture was positive for Escherichia coli. Urine culture did not grow any bacteria but urine cultures were sent after she received antibiotics. She was treated with vancomycin for her C. difficile colitis. She is doing much better overall. She is clinically stable to be discharged back to skilled rehabilitation. She will complete 14 day treatment for C. difficile colitis and for her sepsis. She also has nephrolithiasis which could be contributing to her infection. Urology was consulted and they recommended outpatient follow-up for cystolitholapaxy and left ureteroscopic stone extraction. Discharge discussed with: patient, nurse - Time Spent with Patient Total time spent providing and/or coordinating discharge services: Greater than 30 minutes (32 min) - Discharge Medications Prescriptions: Cefdinir [Omnicef] 300 mg PO BID #22 capsule Home Medications: Amlodipine Besylate 10 mg PO DAILY 05/01/16 [History] Atorvastatin [Lipitor] 20 mg PO HS 05/01/16 [History] Clopidogrel Bisulfate [Plavix] 75 mg PO DAILY 05/01/16 [History] Donepezil HCl [Aricept] 10 mg PO DAILY 05/01/16 [History] Isosorbide MONOnitrate (24 HR) [Imdur] 60 mg PO DAILY 05/01/16 [History] Metoprolol Tartrate [Lopressor] 50 mg PO BID 05/01/16 [History] Potassium Chloride [Klor-Con 10] 20 meq PO DAILY 05/01/16 [History] Multivitamin/Iron/Folic Acid [Centrum Complete Multivit Tab] 1 tab PO DAILY [History] Memantine HCl [Namenda Xr] 28 mg PO DAILY 08/16/17 [History] Oxybutynin Chloride [Ditropan Xl] 5 mg PO DAILY 08/17/17 [History] Pantoprazole Sodium 40 mg PO DAILY 08/17/17 [History] Cefdinir [Omnicef] 300 mg PO BID #22 capsule 08/20/17 [Rx] Vancomycin Oral Soln [Vancocin] 125 mg PO QID 12 Days udc 08/20/17 [Rx] Allergies/Adverse Reactions: 3 Allergy/AdvReac Type Severity Reaction Status Date / Time codeine AdvReac Gastrointestinal Verified 08/16/17 21:58 Upset Penicillins AdvReac Gastrointestinal Verified 08/16/17 21:58 Upset Sulfa (Sulfonamide AdvReac Gastrointestinal Verified 08/16/17 21:58 Antibiotics) Upset sulfamethoxazole AdvReac Gastrointestinal Verified 08/16/17 21:58 [From Bactrim] Upset trimethoprim [From Bactrim] AdvReac Gastrointestinal Verified 08/16/17 21:58 Upset Date of admission: 08/16/17 23:06 Primary care physician: Ha Evans MD Consults: 08/16/17 23:42 Consult to Urology [CONS] Routine Consulting Provider: Urology Hilary Reason for Consult: Left renal pelvis stone, bladder stone Call Completed: No Discharging clinician: Yas Givens Anticipated date of discharge: 08/20/17 - Constitutional Vitals: Temp Pulse Resp BP Pulse Ox 97.2 F L 75 16 146/84 95 08/20/17 06:48 08/20/17 06:48 08/20/17 06:48 08/20/17 06:48 08/20/17 07:49 General appearance: Present: cooperative, obese, answers questions appropriately Exam: Somnolent but easily awakes and answers questions appropriately - Neck Neck exam general surgery: Present: supple, trachea midline. Absent: lymphadenopathy - Respiratory Respiratory exam: Present: CTAB. Absent: accessory muscle use, rales, rhonchi, wheezes - Cardiovascular Cardiovascular exam: Present: RRR, +S1, +S2. Absent: diastolic murmur, gallop, rubs, systolic murmur - GI/Abdominal GI/Abdominal exam: Present: normal bowel sounds, soft, no peritoneal signs. Absent: distended, tenderness - Extremities Exam Extremities exam: Present: warm, radial pulses palpable and symmetrical. Absent : calf tenderness, cyanotic, pedal edema - Patient Status Disposition: Transfer SNF Condition: Fair Functional capacity at discharge: wheelchair bound Overall status at discharge: patient is progressing back to baseline - Discharge Instructions Instructions: Clostridium Difficile Infection (DC), Sepsis (DC) Follow Up With: Ha Evans MD [Primary Care Provider] - (1-2 weeks) Isaiah Workman MD [Partnered Physician] - (In 1-2 weeks) - Diet and Activity Activity: as per physical therapy Diet: low fat, low cholesterol, low salt diet
[2017-08-20] MEDS: Vancomycin Oral Soln 250 MG/5 ML UDC PO SCH (09:57)
[2017-08-20] MEDS: Sennosides/Docusate Sodium TABLET PO SCH (09:58)
== END 2017-08-20 11:30 | DRG 871 ==
LOC: ICNU 23:06 → SUATTDRO 23:06 → 2ANU 08-17 22:31
PROVIDERS: ADMIT Internal Medicine; ATTEND Internal Medicine

== ENCOUNTER 2017-09-22 13:22 | Inpatient (IN) ==
[2017-09-22] MEDS ORDERED: Naloxone 0.4 MG/ML INJ IVP ONE (13:47)
--- NOTE | 2017-09-22 13:58 | Emergency Department Note ---
Disposition Clinical Impression: Sepsis Qualifiers: Sepsis type: sepsis due to unspecified organism Qualified Code(s): A41.9 - Sepsis, unspecified organism Disposition: Admitted As Inpatient Referrals: NONE,PCP [Primary Care Provider] - Forms: ED Satisfaction Letter General Adult HPI - General Chief complaint: ED Weakness Stated complaint: abd Time Seen by Provider: 09/22/17 13:24 Source: EMS Mode of arrival: EMS Limitations: altered mental status, physical limitation, age - History of Present Illness HPI Narrative: 77 F c PMhx of CAD s/p stent, Large bladder stone, HTn, HLD reports to the ED [facility] for AMS discovered by daughter bruno RED. Patient was admitted in beginning of August for Sepsis, bacteremia secondary to bladder stone UTI infection. Patient also treated for C. Diff infection at that time as well. Patient was scheduled to have surgery on 09/01/17 to remove stone , but had not had proper cardiac clearance at that time so procedure was canceled. Patient had negative cardiac stress test on 09/14/17. After August admission patient was [facility] to [facility] where she has lived since discharge. Daughter went to visit her at 11:30-12 this morning and found her slumped over sitting in a chair. She was lethargic but arousable. Per daughter patient had received percocet around 9am this morning. She takes percocet regularly, but this is the first time daughter has seen her like this. Daughter says at baseline patient is AxO x3, but does have some dementia that comes and goes. Patient denies chest pain, dyspnea, headache, abd pain, fever. Per daughter jail told her patient had a fever last night of 100.2 . Patient also on oxybutinin. Pt Subjective Complaint: AMS Onset (ago): Bruno MOON Pain Scale: 0 - Related Data Home Medications Medication Instructions Recorded Confirmed Amlodipine Besylate 10 mg PO DAILY 05/01/16 09/01/17 Atorvastatin [Lipitor] 20 mg PO HS 05/01/16 09/01/17 Clopidogrel Bisulfate [Plavix] 75 mg PO HS 05/01/16 09/01/17 Donepezil HCl [Aricept] 10 mg PO HS 05/01/16 09/01/17 Isosorbide MONOnitrate (24 HR) 60 mg PO DAILY 05/01/16 09/01/17 [Imdur] Metoprolol Tartrate [Lopressor] 50 mg PO BID 05/01/16 09/01/17 Potassium Chloride [Klor-Con 10] 20 meq PO DAILY 05/01/16 09/01/17 Multivitamin/Iron/Folic Acid 1 tab PO DAILY 05/04/16 09/01/17 [Centrum Complete Multivit Tab] Memantine HCl [Namenda Xr] 28 mg PO DAILY 08/16/17 09/01/17 Oxybutynin Chloride [Ditropan Xl] 5 mg PO DAILY 08/17/17 09/01/17 Pantoprazole Sodium 40 mg PO DAILY PRN 08/17/17 09/01/17 HYDROcodone/Acet 5/325 mg [[place] 1 tab PO TID PRN 09/01/17 09/01/17 5-325 mg] Lactobacillus Acidophilus 2 cap PO BID 09/01/17 09/01/17 [Acidophilus] Allergies Allergy/AdvReac Type Severity Reaction Status Date / Time codeine AdvReac Gastrointestinal Verified 09/01/17 09:56 Upset Penicillins AdvReac Gastrointestinal Verified 09/01/17 09:56 Upset Sulfa (Sulfonamide AdvReac Gastrointestinal Verified 09/01/17 09:56 Antibiotics) Upset, Rash sulfamethoxazole AdvReac Gastrointestinal Verified 09/01/17 09:56 [From Bactrim] Upset, Rash trimethoprim [From Bactrim] AdvReac Gastrointestinal Verified 09/01/17 09:56 Upset, Rash Limitations: ROS unobtainable due to patients medical condition Past Medical History - Past Medical History Medical history: Reports: CHF, coronary artery disease, dementia, hyperlipidemia , hypertension, myocardial infarction, valvular heart disease, other Surgical history: Reports: no surgical history, angioplasty/stent, appendectomy , cataract, hysterectomy Psychiatric history: Reports: anxiety ELECTRIC POWER LINE EXAMINER history: Reports: no ELECTRIC POWER LINE EXAMINER history - Social History Smoking Status: Unknown if ever smoked Smokeless Tobacco Status: No Alcohol use: Reports: none Drug use: Reports: none Physical Exam - General Limitations: altered mental status, physical limitation, age General appearance: lethargic - Head Head exam: atraumatic, normocephalic - Eye Eye exam: Present: PERRL, EOMI, miosis - ENT ENT exam: normal oropharynx, mucous membranes moist - Neck Neck exam: Present: full ROM, trachea midline - Chest Chest inspection: Present: symmetric chest wall rise. Absent: tenderness - Respiratory Respiratory exam: Present: normal lung sounds bilaterally. Absent: respiratory distress - Cardiovascular Cardiovascular exam: Present: regular rate, normal rhythm - Abdominal Exam Abdominal exam: Present: soft, Non-Tender - Extremities Exam Extremities exam: Absent: full ROM, pedal edema - Neurological Exam Neurological exam: Present: CN II-XII intact, other (patient follows commands. Motor strength exam is limited by AMS, lethargy. ). Absent: oriented X3 - Skin Skin exam: Present: warm, dry Course Course Narrative: Will check CBC, BMP, UA, CT head and neck to rule out serious causes of AMS. Gave narcan as patient has known hx of percocet ingestion. - Reevaluation(s) Reevaluation #1: BP remains labile. WBC 26.9, Urineturbid. Will start on levaquin, give 1 L bolus , admit to hospitalist. - Consultations Consultation #1: Discussed case with admitting hospitalist. Accepted patient for admission. Vital Signs Temperature 99.0 F 09/22/17 13:23 Pulse Rate 72 09/22/17 13:23 Respiratory Rate 22 09/22/17 13:23 Blood Pressure 137/97 09/22/17 13:23 O2 Sat by Pulse Oximetry 94 09/22/17 13:23 Temperature 99.0 F 09/22/17 13:23 Pulse Rate 72 09/22/17 16:33 Respiratory Rate 18 09/22/17 17:09 Blood Pressure 104/48 09/22/17 17:09 O2 Sat by Pulse Oximetry 96 09/22/17 16:33 Oxygen Delivery Oxygen Delivery Room Air Medical Decision Making - [facility] Narrative Medical decision making narrative: 77 F with AMS. Concern for infection with pt's hx of bladder stone and prior sepsis as a result of this stone. Patient also getting percocetand oxybutinin. Concern for medication effects. Less likely intracranial abnormality, but patient is not a good historian and reports a fall on second interview. Currently afebrile, not tachycardic, normotensive though labilie BP readings. Patient tachypnic, WBC of 26.9 Likely source UTI. Meets SEPSIS criteria. Will be admitted to hospitalist. - Lab Data Result diagrams: 09/22/17 14:50 09/22/17 13:49 Lab Results 09/22/17 09/22/17 09/22/17 Range/Units 13:49 13:49 14:50 WBC 26.9 H (4.3-11.1) K/mcL RBC 3.92 (3.82-4.97) M/mcL Hgb 11.9 (11.5-15.4) g/dL Hct 38.2 (35.3-44.9) % MCV 97.4 (83.0-100.0) fL MCH 30.4 (28.0-33.3) pg MCHC 31.2 L (31.6-35.5) g/dL RDW 13.5 (11.5-14.5) % Plt Count 142 (140-400) K/mcL MPV 10.5 (9.4-12.4) fL Seg Neutrophils % 74.0 % Band Neutrophils % 16.0 H (0-4) % Lymphocytes % 6.0 % Monocytes % 2.0 % Basophils % 2.0 % Neutrophils # 24.2 H (1.6-8.9) K/mcL Lymphocytes # 1.6 (0.6-4.6) K/mcL Monocytes # 0.5 (0.0-1.3) K/mcL Basophils # 0.5 H (0.0-0.2) K/mcL Platelet Estimate Normal (Normal) Sodium 138 (136-145) mEq/L Potassium 4.7 (3.5-5.1) mEq/L Chloride 110 H (98-107) mEq/L Carbon Dioxide 18 L (23-29) mEq/L BUN 30 H (8-23) mg/dL Creatinine 1.79 H (0.60-1.20) mg/dL Est GFR ( Amer) 33 L (> 60) Est GFR (Non-Af Amer) 27 L (> 60) BUN/Creatinine Ratio 17 (6-26) Glucose 119 H (70-105) mg/dL Calculated Osmolality 293 (280-300) Calcium 10.2 (8.6-10.3) mg/dL Urine Color (Yellow) Urine Clarity (Clear) Urine pH (5.0-8.0) pH Units Ur Specific [place] (1.010-1.025) Urine Protein (Neg-Trace) mg/dL Urine Glucose (UA) (Normal) mg/dL Urine Ketones (Negative) mg/dL Urine Blood (Negative) Urine Nitrite (Negative) Urine Bilirubin (Negative) Urine Urobilinogen (Normal) mg/dL Ur Leukocyte Esterase (Negative) Urine Microscopic RBC (0-3) per hpf Urine Microscopic WBC (0-3) per hpf Ur Squamous Epith Cells (None-Few) per lpf Urine Bacteria (None-Few) per hpf Ur Culture Indicated? (NO) Specimen Rejected MCV Delta 09/22/17 Range/Units 15:12 WBC (4.3-11.1) K/mcL RBC (3.82-4.97) M/mcL Hgb (11.5-15.4) g/dL Hct (35.3-44.9) % MCV (83.0-100.0) fL MCH (28.0-33.3) pg MCHC (31.6-35.5) g/dL RDW (11.5-14.5) % Plt Count (140-400) K/mcL MPV (9.4-12.4) fL Seg Neutrophils % % Band Neutrophils % (0-4) % Lymphocytes % % Monocytes % % Basophils % % Neutrophils # (1.6-8.9) K/mcL Lymphocytes # (0.6-4.6) K/mcL Monocytes # (0.0-1.3) K/mcL Basophils # (0.0-0.2) K/mcL Platelet Estimate (Normal) Sodium (136-145) mEq/L Potassium (3.5-5.1) mEq/L Chloride (98-107) mEq/L Carbon Dioxide (23-29) mEq/L BUN (8-23) mg/dL Creatinine (0.60-1.20) mg/dL Est GFR ( Amer) (> 60) Est GFR (Non-Af Amer) (> 60) BUN/Creatinine Ratio (6-26) Glucose (70-105) mg/dL Calculated Osmolality (280-300) Calcium (8.6-10.3) mg/dL Urine Color Dark Yellow (Yellow) Urine Clarity Turbid A (Clear) Urine pH 7.5 (5.0-8.0) pH Units Ur Specific [place] 1.011 (1.010-1.025) Urine Protein >=300 H (Neg-Trace) mg/dL Urine Glucose (UA) Normal (Normal) mg/dL Urine Ketones Negative (Negative) mg/dL Urine Blood Large H (Negative) Urine Nitrite Negative (Negative) Urine Bilirubin Negative (Negative) Urine Urobilinogen Normal (Normal) mg/dL Ur Leukocyte Esterase Large H (Negative) Urine Microscopic RBC Present (0-3) per hpf Urine Microscopic WBC TNTC H (0-3) per hpf Ur Squamous Epith Cells Present (None-Few) per lpf Urine Bacteria Present (None-Few) per hpf Ur Culture Indicated? YES A (NO) Specimen Rejected
[2017-09-22 14:17] LABS: Calcium 10.2 mg/dL (8.6-10.3); Potassium 4.7 mEq/L (3.5-5.1)
[2017-09-22 15:11] LABS: Hematocrit 38.2 % (35.3-44.9); Hemoglobin 11.9 g/dL (11.5-15.4); Mean Corpuscular HGB Conc 31.2 g/dL (31.6-35.5); Mean Corpuscular Hemoglobin 30.4 pg (28.0-33.3); Mean Corpuscular Volume 97.4 fL (83.0-100.0); Mean Platelet Volume 10.5 fL (9.4-12.4); Platelet Count 142 K/mcL (140-400); Red Blood Count 3.92 M/mcL (3.82-4.97); Red Cell Distribution Width 13.5 % (11.5-14.5)
[2017-09-22] MEDS ORDERED: Levofloxacin 750 MG/150 ML 750 MG/150 ML BAG IVPB ONE (15:18)
[2017-09-22] MEDS ORDERED: 0.9 % Sodium Chloride 1,000 ML IVC ONE (15:20)
[2017-09-22 15:24] LABS: Bilirubin,Urine Negative (Negative); Blood,Urine Large (Negative); Clarity,Urine Turbid (Clear); Color,Urine Dark Yellow (Yellow); Glucose,Urine (UA) Normal (Normal); Ketones,Urine Negative (Negative); Leukocyte Esterase,Urine Large (Negative); Nitrite,Urine Negative (Negative); PH,Urine 7.5 pH Units (5.0-8.0); Protein,Urine >=300 mg/dL (Neg-Trace); Specific Gravity,Urine 1.011 (1.010-1.025); Urobilinogen,Urine Normal (Normal)
[2017-09-22 15:25] LABS: WBC,Urine TNTC per hpf (0-3)
[2017-09-22 16:03] LABS: RBC,Urine Present per hpf (0-3)
[2017-09-22 16:04] LABS: Bacteria,Urine Present per hpf (None-Few); Squamous Epithelial Cell,Urine Present per lpf (None-Few)
[2017-09-22 16:06] LABS: Basophils # 0.5 K/mcL (0.0-0.2); Lymphocytes # 1.6 K/mcL (0.6-4.6); Monocytes # 0.5 K/mcL (0.0-1.3); Neutrophils # 24.2 K/mcL (1.6-8.9); Platelet Estimate Normal (Normal)
--- NOTE | 2017-09-22 16:46 | Emergency Department Note ---
Disposition Clinical Impression: Sepsis Qualifiers: Sepsis type: sepsis due to unspecified organism Qualified Code(s): A41.9 - Sepsis, unspecified organism UTI (urinary tract infection) Qualifiers: Urinary tract infection type: acute cystitis Hematuria presence: without hematuria Qualified Code(s): N30.00 - Acute cystitis without hematuria Disposition: Admitted As Inpatient Condition: Fair General Adult HPI - General Chief complaint: ED Weakness Stated complaint: abd Time Seen by Provider: 09/22/17 13:24 Source: EMS Mode of arrival: EMS Limitations: altered mental status, physical limitation, age Nursing Notes Reviewed: Yes Vital Signs Reviewed: Yes - History of Present Illness Pain Scale: 0 - Related Data Home Medications Medication Instructions Recorded Confirmed Amlodipine Besylate 10 mg PO DAILY 05/01/16 09/22/17 Atorvastatin [Lipitor] 20 mg PO HS 05/01/16 09/22/17 Clopidogrel Bisulfate [Plavix] 75 mg PO HS 05/01/16 09/22/17 Donepezil HCl [Aricept] 10 mg PO HS 05/01/16 09/22/17 Isosorbide MONOnitrate (24 HR) 60 mg PO DAILY 05/01/16 09/22/17 [Imdur] Metoprolol Tartrate [Lopressor] 50 mg PO BID 05/01/16 09/22/17 Potassium Chloride [Klor-Con 10] 20 meq PO DAILY 05/01/16 09/22/17 Multivitamin/Iron/Folic Acid 1 tab PO DAILY 05/04/16 09/22/17 [Centrum Complete Multivit Tab] Memantine HCl [Namenda Xr] 28 mg PO DAILY 08/16/17 09/22/17 Oxybutynin Chloride [Ditropan Xl] 5 mg PO DAILY 08/17/17 09/22/17 Pantoprazole Sodium 40 mg PO DAILY PRN 08/17/17 09/22/17 HYDROcodone/Acet 5/325 mg [[place] 1 tab PO TID PRN 09/01/17 09/22/17 5-325 mg] Lactobacillus Acidophilus 2 cap PO BID 09/01/17 09/22/17 [Acidophilus] Allergies Allergy/AdvReac Type Severity Reaction Status Date / Time codeine AdvReac Gastrointestinal Verified 09/01/17 09:56 Upset Penicillins AdvReac Gastrointestinal Verified 09/01/17 09:56 Upset Sulfa (Sulfonamide AdvReac Gastrointestinal Verified 09/01/17 09:56 Antibiotics) Upset, Rash sulfamethoxazole AdvReac Gastrointestinal Verified 09/01/17 09:56 [From Bactrim] Upset, Rash trimethoprim [From Bactrim] AdvReac Gastrointestinal Verified 09/01/17 09:56 Upset, Rash Past Medical History - Past Medical History Medical history: Reports: CHF, coronary artery disease, dementia, hyperlipidemia , hypertension, myocardial infarction, valvular heart disease, other Surgical history: Reports: no surgical history, angioplasty/stent, appendectomy , cataract, hysterectomy Psychiatric history: Reports: anxiety TECHNICAL ENGINEER history: Reports: no TECHNICAL ENGINEER history - Social History Smoking Status: Unknown if ever smoked Smokeless Tobacco Status: No Alcohol use: Reports: none Drug use: Reports: none Physical Exam - General Limitations: altered mental status, physical limitation, age General appearance: lethargic Course Vital Signs Temperature 99.0 F 09/22/17 13:23 Pulse Rate 72 09/22/17 13:23 Respiratory Rate 22 09/22/17 13:23 Blood Pressure 137/97 09/22/17 13:23 O2 Sat by Pulse Oximetry 94 09/22/17 13:23 Temperature 99.3 F 09/22/17 22:01 Pulse Rate 72 09/22/17 18:12 Respiratory Rate 17 09/22/17 22:01 Blood Pressure 72/48 09/22/17 22:01 O2 Sat by Pulse Oximetry 97 09/22/17 22:01 Oxygen Delivery Oxygen Delivery Room Air Medical Decision Making - Medical Records Medical records reviewed: Yes I reviewed the patient's medical records. - Lab Data Lab results reviewed: Yes I reviewed the patient's lab results. Result diagrams: 09/22/17 14:50 09/22/17 13:49 Lab Results 09/22/17 09/22/17 09/22/17 Range/Units 13:49 13:49 14:50 WBC 26.9 H (4.3-11.1) K/mcL RBC 3.92 (3.82-4.97) M/mcL Hgb 11.9 (11.5-15.4) g/dL Hct 38.2 (35.3-44.9) % MCV 97.4 (83.0-100.0) fL MCH 30.4 (28.0-33.3) pg MCHC 31.2 L (31.6-35.5) g/dL RDW 13.5 (11.5-14.5) % Plt Count 142 (140-400) K/mcL MPV 10.5 (9.4-12.4) fL Seg Neutrophils % 74.0 % Band Neutrophils % 16.0 H (0-4) % Lymphocytes % 6.0 % Monocytes % 2.0 % Basophils % 2.0 % Neutrophils # 24.2 H (1.6-8.9) K/mcL Lymphocytes # 1.6 (0.6-4.6) K/mcL Monocytes # 0.5 (0.0-1.3) K/mcL Basophils # 0.5 H (0.0-0.2) K/mcL Platelet Estimate Normal (Normal) Sodium 138 (136-145) mEq/L Potassium 4.7 (3.5-5.1) mEq/L Chloride 110 H (98-107) mEq/L Carbon Dioxide 18 L (23-29) mEq/L BUN 30 H (8-23) mg/dL Creatinine 1.79 H (0.60-1.20) mg/dL Est GFR ( Amer) 33 L (> 60) Est GFR (Non-Af Amer) 27 L (> 60) BUN/Creatinine Ratio 17 (6-26) Glucose 119 H (70-105) mg/dL Calculated Osmolality 293 (280-300) Calcium 10.2 (8.6-10.3) mg/dL Urine Color (Yellow) Urine Clarity (Clear) Urine pH (5.0-8.0) pH Units Ur Specific [place] (1.010-1.025) Urine Protein (Neg-Trace) mg/dL Urine Glucose (UA) (Normal) mg/dL Urine Ketones (Negative) mg/dL Urine Blood (Negative) Urine Nitrite (Negative) Urine Bilirubin (Negative) Urine Urobilinogen (Normal) mg/dL Ur Leukocyte Esterase (Negative) Urine Microscopic RBC (0-3) per hpf Urine Microscopic WBC (0-3) per hpf Ur Squamous Epith Cells (None-Few) per lpf Urine Bacteria (None-Few) per hpf Ur Culture Indicated? (NO) Specimen Rejected MCV Delta 09/22/17 Range/Units 15:12 WBC (4.3-11.1) K/mcL RBC (3.82-4.97) M/mcL Hgb (11.5-15.4) g/dL Hct (35.3-44.9) % MCV (83.0-100.0) fL MCH (28.0-33.3) pg MCHC (31.6-35.5) g/dL RDW (11.5-14.5) % Plt Count (140-400) K/mcL MPV (9.4-12.4) fL Seg Neutrophils % % Band Neutrophils % (0-4) % Lymphocytes % % Monocytes % % Basophils % % Neutrophils # (1.6-8.9) K/mcL Lymphocytes # (0.6-4.6) K/mcL Monocytes # (0.0-1.3) K/mcL Basophils # (0.0-0.2) K/mcL Platelet Estimate (Normal) Sodium (136-145) mEq/L Potassium (3.5-5.1) mEq/L Chloride (98-107) mEq/L Carbon Dioxide (23-29) mEq/L BUN (8-23) mg/dL Creatinine (0.60-1.20) mg/dL Est GFR ( Amer) (> 60) Est GFR (Non-Af Amer) (> 60) BUN/Creatinine Ratio (6-26) Glucose (70-105) mg/dL Calculated Osmolality (280-300) Calcium (8.6-10.3) mg/dL Urine Color Dark Yellow (Yellow) Urine Clarity Turbid A (Clear) Urine pH 7.5 (5.0-8.0) pH Units Ur Specific [place] 1.011 (1.010-1.025) Urine Protein >=300 H (Neg-Trace) mg/dL Urine Glucose (UA) Normal (Normal) mg/dL Urine Ketones Negative (Negative) mg/dL Urine Blood Large H (Negative) Urine Nitrite Negative (Negative) Urine Bilirubin Negative (Negative) Urine Urobilinogen Normal (Normal) mg/dL Ur Leukocyte Esterase Large H (Negative) Urine Microscopic RBC Present (0-3) per hpf Urine Microscopic WBC TNTC H (0-3) per hpf Ur Squamous Epith Cells Present (None-Few) per lpf Urine Bacteria Present (None-Few) per hpf Ur Culture Indicated? YES A (NO) Specimen Rejected - Radiology Data Radiology results reviewed: Yes I reviewed the patient's radiology results. Attestation Statement - Attestation Attestation: I, Maury Bonner, examined this patient and my medical decision-making was reviewed with the IT SECURITY ENGINEER/PA/Advanced Practice Nurse/Resident Physician. I agree with the documented findings, disposition and treatment plan as described except to the extent set forth below. 77-year-old female brought to the emergency department by EMS for altered mental status, lethargy. Patient apparently had a fever at the detention of 102, she does not have one now. It is unclear whether she received Tylenol prior to arrival. Patient is unable to give a history regarding her case and presentation. Patient has a history of a large bladder stone which has caused urosepsis in the past. Daughter states patient was lethargic in the detention upon her arrival. Patient continues to be fatigued inserts to follow sleep during the evaluation. Patient denies pain to the abdomen or chest or syncopal symptoms. Patient states that she has fallen out of bed but is unclear as to the timeframe as to when this happened. Patient had a urinary tract infection on urinalysis. She was started on antibiotics in the emergency department. She was initially mildly hypotensive which improved with IV fluids. Patient will be admitted to the hospital for further care and evaluation. The high probability of a clinically significant, sudden or life threatening deterioration of the cardiovascular system(s) required my full and direct attention, intervention and personal management. The aggregate critical care time was 30 minutes. This time is in addition to time spent performing reported procedures but includes the following: x Data Review and interpretation x Patient assessment and monitoring of vital signs x Documentation x Medication orders and management
--- NOTE | 2017-09-22 18:53 | Internal Med History&Physical ---
Date of Encounter: 09/22/17 Time of Encounter: 18:00 Internal Medicine - H&P: HPI Chief complaint: Altered mental status Admitted From: Long-term Nursing Facility Plans for Post Hospital Care: Transfer Diving Instructor Care History of present illness: Patient is a 69-year-old female with past medical history significant for dementia, ischemic cardiomyopathy, heart valvular disease and hyperlipidemia who presents to the ER on 09/22/17 with confusion. Patient has a history of dementia and is also confused with no family at bedside. Patient does report of lower abdominal discomfort and burning with urination. In the ER, patient was found to have leukocytosis with a white count of 26.9 but was afebrile. Patient also found to have pyuria on urinalysis. Patient has been admitted to medical surgical floor for altered mental status suspected secondary to UTI. Past Med Surg Social Fam HX - Past Medical History Medical history: CHF, coronary artery disease, dementia, hyperlipidemia, hypertension, myocardial infarction, valvular heart disease, other Psychiatric history: anxiety - Past Surgical History Surgical History: no surgical history, angioplasty/stent, appendectomy, cataract , hysterectomy - Social History Smoking Status: Unknown if ever smoked Smokeless Tobacco Status: No Alcohol use: none Drug use: none Internal Medicine - H&P: Meds Amlodipine Besylate 10 mg PO DAILY 05/01/16 [History] Atorvastatin [Lipitor] 20 mg PO HS 05/01/16 [History] Clopidogrel Bisulfate [Plavix] 75 mg PO HS 05/01/16 [History] Donepezil HCl [Aricept] 10 mg PO HS 05/01/16 [History] Isosorbide MONOnitrate (24 HR) [Imdur] 60 mg PO DAILY 05/01/16 [History] Metoprolol Tartrate [Lopressor] 50 mg PO BID 05/01/16 [History] Potassium Chloride [Klor-Con 10] 20 meq PO DAILY 05/01/16 [History] Multivitamin/Iron/Folic Acid [Centrum Complete Multivit Tab] 1 tab PO DAILY [History] Memantine HCl [Namenda Xr] 28 mg PO DAILY 08/16/17 [History] Oxybutynin Chloride [Ditropan Xl] 5 mg PO DAILY 08/17/17 [History] Pantoprazole Sodium 40 mg PO DAILY PRN 08/17/17 [History] HYDROcodone/Acet 5/325 mg [[place] 5-325 mg] 1 tab PO TID PRN 09/01/17 [History] Lactobacillus Acidophilus [Acidophilus] 2 cap PO BID 09/01/17 [History] 3 Allergy/AdvReac Type Severity Reaction Status Date / Time codeine AdvReac Gastrointestinal Verified 09/01/17 09:56 Upset Penicillins AdvReac Gastrointestinal Verified 09/01/17 09:56 Upset Sulfa (Sulfonamide AdvReac Gastrointestinal Verified 09/01/17 09:56 Antibiotics) Upset, Rash sulfamethoxazole AdvReac Gastrointestinal Verified 09/01/17 09:56 [From Bactrim] Upset, Rash trimethoprim [From Bactrim] AdvReac Gastrointestinal Verified 09/01/17 09:56 Upset, Rash ROS unobtainable: due to mental status All Systems PM: A 10-system review of systems was performed and is negative for pertinent findings except as documented above in the HPI. - Constitutional Vitals: Temp Pulse Resp BP Pulse Ox 98.9 F 72 16 117/72 92 09/22/17 18:12 09/22/17 18:12 09/22/17 18:12 09/22/17 18:12 09/22/17 18:12 General appearance: Present: A&O X 1, pleasant, no acute distress - Eye Eye exam: Present: normal appearance - ENT ENT exam: Present: mucous membranes moist - Respiratory Respiratory exam: Present: CTAB. Absent: accessory muscle use, rales, rhonchi, wheezes - Cardiovascular Cardiovascular exam: Present: RRR, +S1, +S2. Absent: diastolic murmur, gallop, rubs, systolic murmur - GI/Abdominal GI/Abdominal exam: Present: soft, tenderness (Lower abdominal tenderness to palpation) - Extremities Exam Extremities exam: Absent: tenderness - Neurological Exam Neurological exam: Present: alert, altered - Psychiatric Psychiatric exam: Present: normal mood - Skin Skin exam: Present: normal color Internal Med - H&P Results - Labs CBC & Chem 7: 09/22/17 14:50 09/22/17 13:49 - Assessment and plan (1) UTI (urinary tract infection) Current Visit: No Status: Acute Assessment and plan: Patient symptomatic as she reports of dysuria and lower abdominal discomfort Patient with pyuria on urinalysis and leukocytosis on labs Will continue Levaquin started in the ER Qualifiers: Urinary tract infection type: acute cystitis Hematuria presence: without hematuria Qualified Code(s): N30.00 - Acute cystitis without hematuria (2) Dementia Current Visit: Yes Status: Acute Assessment and plan: We will continue patient's home medication Qualifiers: Qualified Code(s): F03.90 - Unspecified dementia without behavioral disturbance (3) CAD (coronary artery disease) Current Visit: No Status: Chronic Assessment and plan: Continue home medications Qualifiers: Coronary Disease-Associated Artery/Lesion type: [place] artery [place] vs. transplanted heart: [place] heart Associated angina: without angina Qualified Code(s): I25.10 - Atherosclerotic heart disease of [place] coronary artery without angina pectoris (4) DVT prophylaxis Current Visit: No Status: Acute Assessment and plan: Subcutaneous heparin - Time Spent With Patient Total time spent is greater than 50% in coordination of care (as documented) at patient's floor/unit and/or counseling patient:
[2017-09-22] MEDS ORDERED: Naloxone 0.4 MG/ML INJ IVP PRN (19:01)
[2017-09-22] MEDS: Lactobacillus 1 EACH CAP.SPRINK PO SCH (20:48)
[2017-09-22] MEDS ORDERED: Acetaminophen 650 MG RECTAL SUPP RC PRN (21:15)
[2017-09-22] MEDS: 0.9 % Sodium Chloride 1,000 ML IVC SCH (21:26)
[2017-09-22] MEDS: Acetaminophen 325 MG TABLET PO PRN (21:31)
[2017-09-22] MEDS ORDERED: 0.9 % Sodium Chloride 500 ML IVC ONE (22:48)
[2017-09-22] MEDS ORDERED: Meropenem 1,000 MG in Water for inj. (sterile) 20 ML 10 ML IVP SCH (23:23)
--- NOTE | 2017-09-23 00:29 | Event Note ---
Date of Encounter: 09/22/17 Time of Encounter: 20:03 Alerted by pts. nurse Silver, RN that pts. lactic acid was 5.4. Nurse also alerted me that pt. was not voiding very much urine. Pt. has hx of bladder stone. Bladder scan ordered PRN which showed 84 mL. 0.9 NS ordered to start at 125 mL/HR. Pt. was admitted w/UTI and pyuria. Started on Levaquin IVPB. Pts. temp also 103F. Tylenol PO 650 mg Q6HR PRN and PO Motrin 600 mg Q6HR PRN ordered to alternate for fever control. Tylenol 650 mg RC ordered if pt. unable to take PO Tylenol. Alerted at 22:45 by pts. nurse Adrianne RN that pt. had received her Lopressor at 20:00 and BP was now in 70s/40s. Pt. received 0.9 NS 1L fluid bolus in ED. 500 mL bolus ordered to help bring up BP. BP at time of bolus was 72/48. At 22: 52 BP was 56/41 w/pulse 75. Went to see pt. who was laying in bed in the Trendelenburg position. Pt. was somewhat somnolent but alert when rubbed or spoken to. Pts. HR remained in 70s. SpO2 in low 90s and NC changed to Oxymask. SpO2 improved to high 90s. Pts. BP remained in 60s/40s and 50s/30s. Stat lactic acid and CBC ordered. Discussed case w/Dr. Haas who recommended starting dopamine drip. Bed Management called and spoke w/Ravinder to secure ICU bed. ICU2 bed slated for pt. O2 converted to tank for transport and pt. placed on 8L via Oxymask. SpO2 high 90s to 100%. Pt. currently had IV access in right arm. Second peripheral line placed in left arm and dopamine infusion begun at 5 which is highest level at peripheral IV. Pts. BP continued to remain in 60s/ 40s. Decision made not to wait any longer for BP to improve and move pt. to ICU stat. Pt. transported to ICU bed 2 at 23:55. Pts. nurse Silver notified pts. family while pt. was being transported for consent to place central line in order to increase dopamine dosing. Second lactic acid 2.9. Dr. Haas discontinued pts. Levaquin and replaced w/Meropenem IVPB 1000 mg Q12 to begin now. Pt. to be monitored closely for septic shock.
[2017-09-23] MEDS ORDERED: Ringers Solution, Lactated 1,000 ML IVC ONE ×3 (00:47→03:34)
[2017-09-23] MEDS: Norepinephrine 4 MG in D5% in Water 250 ML IVC SCH ×5 (01:00→11:27)
[2017-09-23] MEDS ORDERED: Ondansetron 4 MG/2 ML VIAL IVP PRN (01:45)
[2017-09-23] MEDS ORDERED: Ondansetron 4 MG/2 ML VIAL ONE (01:46)
--- NOTE | 2017-09-23 01:46 | Procedure Note ---
Date of procedure: 09/23/17 Pre-op diagnosis: UTI Post-op diagnosis: same Procedure: Central Venous Catheter (Right Internal jugular CVC, Central Line) Placement Date: 09/23/2017 Time: 0015 Indication: Hemodynamic monitoring/Intravenous access Resident: Jaimie Maldonado Attending: Dr. Haas A time-out was completed verifying correct patient, procedure, site, positioning , and special equipment if applicable. The patient was placed in a dependent position appropriate for central line placement based on the vein to be cannulated. The patients right neck was prepped and draped in sterile fashion. 1 % Lidocaine was used to anesthetize the surrounding skin area. A triple lumen 9- [place] Cordis catheter was introduced into the the internal jugular using the Seldinger technique and under ultrasound guidance. The catheter was threaded smoothly over the guide wire and appropriate blood return was obtained. Each lumen of the catheter was evacuated of air and flushed with sterile saline. The catheter was then sutured in place to the skin and a sterile dressing applied. Perfusion to the extremity distal to the point of catheter insertion was checked and found to be adequate. The Attending was present for the entire procedure. Estimated Blood Loss: 3cc The patient tolerated the procedure well and there were no complications. Anesthesia: local Was there an seed laboratory assistant present: Yes Circle Shear Operator: Aleta Ellis Estimated blood loss (cc): 3 Specimen: none Pathology: none sent Condition: critical Disposition: ICU
[2017-09-23] MEDS ORDERED: Ringers Solution, Lactated 1,000 ML ONE (02:03)
[2017-09-23 04:20] LABS: Platelet Count 108 K/mcL (140-400)
[2017-09-23 04:22] LABS: Hematocrit 31.1 % (35.3-44.9); Hemoglobin 9.8 g/dL (11.5-15.4); Mean Corpuscular HGB Conc 31.5 g/dL (31.6-35.5); Mean Corpuscular Hemoglobin 30.9 pg (28.0-33.3); Mean Corpuscular Volume 98.1 fL (83.0-100.0); Mean Platelet Volume 11.1 fL (9.4-12.4); Red Blood Count 3.17 M/mcL (3.82-4.97); Red Cell Distribution Width 13.9 % (11.5-14.5)
[2017-09-23 04:30] LABS: Calcium 8.2 mg/dL (8.6-10.3)
[2017-09-23 05:02] LABS: Lymphocytes # 3.6 K/mcL (0.6-4.6); Monocytes # 1.8 K/mcL (0.0-1.3); Neutrophils # 39.9 K/mcL (1.6-8.9); Platelet Estimate Slight Decrease (Normal); Reactive Lymphocytes Present (Not Present)
[2017-09-23] MEDS: Nystatin Cream 15 GM TUBE TP SCH ×2 (05:34→21:38)
[2017-09-23] MEDS ORDERED: *HR* Promethazine 25 MG/ML VIAL IM ONE (06:27)
[2017-09-23] MEDS ORDERED: *HR* Promethazine 25 MG/ML VIAL ONE (06:32)
[2017-09-23] MEDS ORDERED: *HR* Promethazine 25 MG/ML VIAL IVP ONE (06:57)
--- NOTE | 2017-09-23 07:23 | Pulmonology Consult Note ---
<Jaimie Maldonado - Last Filed: 09/23/17 07:20> Date of Encounter: 09/23/17 Time of Encounter: 07:20 Assessment and Plan (1) Septic shock Current Visit: No Status: Resolved Patient meets septic shock criteria with hypotension refractory to IV fluids. This is secondary to UTI and stone in bladder. WBC 45.3 (26.9) worsening, afebrile now (temperature was 103) abdominal CT 08/16/2017 demonstrating a large bladder stone, not obstructing 13 mm stone in the left renal pelvis -patient is on levophed and dopamine. Will wean dopamine is tolerated -stop meropenem -start Rocephin -Blood culture ordered -urine culture ordered (2) UTI (urinary tract infection) Current Visit: Yes Status: Acute Urinalysis concerning for UTI urine culture ordered stop meropenem and begin Rocephin Qualifiers: Urinary tract infection type: acute cystitis Hematuria presence: without hematuria Qualified Code(s): N30.00 - Acute cystitis without hematuria (3) Bladder stone Current Visit: No Status: Acute abdominal CT 08/16/2017 demonstrating a large bladder stone, not obstructing 13 mm stone in the left renal pelvis -urology consulted. They are familiar with this patient. -management as above (4) Acute renal failure Current Visit: No Status: Resolved Acute renal failure likely secondary to bladder stone and dehydration creatinine 1.5 (1.79) improving Perez catheter unable to be placed due to resistance when placing -Avoid nephrotoxic agents -continue to monitor serum creatinine -continue IV fluids Qualifiers: Acute renal failure type: with acute tubular necrosis Qualified Code(s): N17.0 - Acute kidney failure with tubular necrosis (5) CAD (coronary artery disease) Current Visit: No Status: Chronic History of CAD taking Plavix, Lipitor, amlodipine, Lopressor, Imdur holding home BP meds due to hypotension continue home Plavix and Lipitor Qualifiers: Coronary Disease-Associated Artery/Lesion type: [place] artery [place] vs. transplanted heart: [place] heart Associated angina: without angina Qualified Code(s): I25.10 - Atherosclerotic heart disease of [place] coronary artery without angina pectoris (6) Dementia Current Visit: Yes Status: Acute History of known dementia taking Namenda and Aricept continue home medications Qualifiers: Qualified Code(s): F03.90 - Unspecified dementia without behavioral disturbance (7) DVT prophylaxis Current Visit: No Status: Acute Heparin SQ History of Present Illness Consult date: 09/23/17 Requesting physician: Jaimie Maldonado Reason for consult: other (Vasopressor support) Chief complaint: Altered mental status History of present illness: Patient is a 77-year-old female with past medical history of dementia, ischemic cardiomyopathy, valvular heart disease, hyperlipidemia presented to the ER from SNF due to altered mental status. In the ER the patient had white blood cell count of 26.9 and was afebrile. Her reports the patient was complaining of abdominal discomfort and burning with urination. Urinalysis was concerning for UTI. She was admitted to 2A for treatment of UTI. Later she had a fever of 100.3, hypotension 70s of her 40s despite IV fluid boluses and was started on dopamine and transfered to ICU. Of note, in the beginning of August she was admitted for sepsis secondary UTI that was likely caused by a large bladder stone that was found on CT. Urology had evaluated the patient and scheduled an outpatient procedure to remove the stone however, the procedure was canceled due to not having cardiac clearance for surgery. According to family the patient was seen by cardiology last week. Past Med Surg Social Fam HX - Past Medical History Medical history: CHF, coronary artery disease, dementia, hyperlipidemia, hypertension, myocardial infarction, valvular heart disease, other Psychiatric history: anxiety - Past Surgical History Surgical History: no surgical history, angioplasty/stent, appendectomy, cataract , hysterectomy - Social History Smoking Status: Unknown if ever smoked Smokeless Tobacco Status: No Alcohol use: none Drug use: none Medications and Allergies Amlodipine Besylate 10 mg PO DAILY 05/01/16 [History] Atorvastatin [Lipitor] 20 mg PO HS 05/01/16 [History] Clopidogrel Bisulfate [Plavix] 75 mg PO HS 05/01/16 [History] Donepezil HCl [Aricept] 10 mg PO HS 05/01/16 [History] Isosorbide MONOnitrate (24 HR) [Imdur] 60 mg PO DAILY 05/01/16 [History] Metoprolol Tartrate [Lopressor] 50 mg PO BID 05/01/16 [History] Potassium Chloride [Klor-Con 10] 20 meq PO DAILY 05/01/16 [History] Multivitamin/Iron/Folic Acid [Centrum Complete Multivit Tab] 1 tab PO DAILY [History] Memantine HCl [Namenda Xr] 28 mg PO DAILY 08/16/17 [History] Oxybutynin Chloride [Ditropan Xl] 5 mg PO DAILY 08/17/17 [History] Pantoprazole Sodium 40 mg PO DAILY PRN 08/17/17 [History] HYDROcodone/Acet 5/325 mg [[place] 5-325 mg] 1 tab PO TID PRN 09/01/17 [History] Lactobacillus Acidophilus [Acidophilus] 2 cap PO BID 09/01/17 [History] 3 Allergy/AdvReac Type Severity Reaction Status Date / Time codeine AdvReac Gastrointestinal Verified 09/01/17 09:56 Upset Penicillins AdvReac Gastrointestinal Verified 09/01/17 09:56 Upset Sulfa (Sulfonamide AdvReac Gastrointestinal Verified 09/01/17 09:56 Antibiotics) Upset, Rash sulfamethoxazole AdvReac Gastrointestinal Verified 09/01/17 09:56 [From Bactrim] Upset, Rash trimethoprim [From Bactrim] AdvReac Gastrointestinal Verified 09/01/17 09:56 Upset, Rash ROS unobtainable: due to mental status All Systems: The remainder of the systems were reviewed and are negative Physical Examination Vital Signs: Vital Signs, Last 4 Hours Temp Pulse Resp BP Pulse Ox 09/23/17 07:00 70 14 94/48 94 09/23/17 06:00 70 16 137/75 95 09/23/17 05:00 74 18 103/38 96 09/23/17 04:00 72 16 102/31 96 09/23/17 03:26 98.0 F General appearance: no acute distress Eyes: nonicteric ENT: oropharynx dry Neck: supple Effort: normal Inspection: normal Auscultation: bilateral: clear Cardiovascular: regular rate and rhythm Gastrointestinal: normoactive bowel sounds, soft, tender, non-distended Integumentary: normal Extremities: no cyanosis Musculoskeletal: no deformities unable to assess due to mental status Results - Laboratory Findings CBC and BMP: 09/23/17 04:00 09/23/17 04:00 Abnormal lab findings: Abnormal lab results WBC 45.3 K/mcL (4.3-11.1) H* D 09/23/17 04:00 RBC 3.17 M/mcL (3.82-4.97) L 09/23/17 04:00 Hgb 9.8 g/dL (11.5-15.4) L D 09/23/17 04:00 Hct 31.1 % (35.3-44.9) L 09/23/17 04:00 MCHC 31.5 g/dL (31.6-35.5) L 09/23/17 04:00 Plt Count 108 K/mcL (140-400) L 09/23/17 04:00 Band Neutrophils % 12.0 % (0-4) H 09/23/17 04:00 Neutrophils # 39.9 K/mcL (1.6-8.9) H 09/23/17 04:00 Monocytes # 1.8 K/mcL (0.0-1.3) H 09/23/17 04:00 Basophils # 0.5 K/mcL (0.0-0.2) H 09/22/17 14:50 Reactive Lymphocytes Present (Not Present) A 09/23/17 04:00 Platelet Estimate Slight Decrease (Normal) L 09/23/17 04:00 Chloride 115 mEq/L (98-107) H 09/23/17 04:00 Carbon Dioxide 15 mEq/L (23-29) L 09/23/17 04:00 BUN 31 mg/dL (8-23) H 09/23/17 04:00 Creatinine 1.50 mg/dL (0.60-1.20) H 09/23/17 04:00 Est GFR ( Amer) 41 (> 60) L 09/23/17 04:00 Est GFR (Non-Af Amer) 34 (> 60) L 09/23/17 04:00 Glucose 163 mg/dL (70-105) H 09/23/17 04:00 Calcium 8.2 mg/dL (8.6-10.3) L 09/23/17 04:00 Urine Clarity Turbid (Clear) A 09/22/17 15:12 Urine Protein >=300 mg/dL (Neg-Trace) H 09/22/17 15:12 Urine Blood Large (Negative) H 09/22/17 15:12 Ur Leukocyte Esterase Large (Negative) H 09/22/17 15:12 Urine Microscopic WBC TNTC per hpf (0-3) H 09/22/17 15:12 Ur Culture Indicated? YES (NO) A 09/22/17 15:12 - Clinical Findings Intake & Output: Intake & Output 09/22/17 09/22/17 09/23/17 15:59 23:59 07:59 Intake Total 0 / 0 3646 / 3646 Output Total 0 / 0 0 / 0 Balance 0 / 0 3646 / 3646 Weight 63.503 kg Consult Discharge Plan - Plan Referrals: NONE,PCP [Primary Care Provider] - <Lexus Pisano - Last Filed: 09/23/17 08:44> Date of Encounter: 09/23/17 All Systems: The remainder of the systems were reviewed and are negative Physical Examination Vital Signs: Vital Signs, Last 4 Hours Temp Pulse Resp BP Pulse Ox 09/23/17 07:55 97.9 F 09/23/17 07:00 70 14 94/48 94 09/23/17 06:00 70 16 137/75 95 09/23/17 05:00 74 18 103/38 96 Results - Laboratory Findings CBC and BMP: 09/23/17 04:00 09/23/17 04:00 Abnormal lab findings: Abnormal lab results WBC 45.3 K/mcL (4.3-11.1) H* D 09/23/17 04:00 RBC 3.17 M/mcL (3.82-4.97) L 09/23/17 04:00 Hgb 9.8 g/dL (11.5-15.4) L D 09/23/17 04:00 Hct 31.1 % (35.3-44.9) L 09/23/17 04:00 MCHC 31.5 g/dL (31.6-35.5) L 09/23/17 04:00 Plt Count 108 K/mcL (140-400) L 09/23/17 04:00 Band Neutrophils % 12.0 % (0-4) H 09/23/17 04:00 Neutrophils # 39.9 K/mcL (1.6-8.9) H 09/23/17 04:00 Monocytes # 1.8 K/mcL (0.0-1.3) H 09/23/17 04:00 Basophils # 0.5 K/mcL (0.0-0.2) H 09/22/17 14:50 Reactive Lymphocytes Present (Not Present) A 09/23/17 04:00 Platelet Estimate Slight Decrease (Normal) L 09/23/17 04:00 Chloride 115 mEq/L (98-107) H 09/23/17 04:00 Carbon Dioxide 15 mEq/L (23-29) L 09/23/17 04:00 BUN 31 mg/dL (8-23) H 09/23/17 04:00 Creatinine 1.50 mg/dL (0.60-1.20) H 09/23/17 04:00 Est GFR ( Amer) 41 (> 60) L 09/23/17 04:00 Est GFR (Non-Af Amer) 34 (> 60) L 09/23/17 04:00 Glucose 163 mg/dL (70-105) H 09/23/17 04:00 Calcium 8.2 mg/dL (8.6-10.3) L 09/23/17 04:00 Urine Clarity Turbid (Clear) A 09/22/17 15:12 Urine Protein >=300 mg/dL (Neg-Trace) H 09/22/17 15:12 Urine Blood Large (Negative) H 09/22/17 15:12 Ur Leukocyte Esterase Large (Negative) H 09/22/17 15:12 Urine Microscopic WBC TNTC per hpf (0-3) H 09/22/17 15:12 Ur Culture Indicated? YES (NO) A 09/22/17 15:12 - Clinical Findings Intake & Output: Intake & Output 09/22/17 09/23/17 09/23/17 23:59 07:59 15:59 Intake Total 0 / 0 3646 / 3646 Output Total 0 / 0 0 / 0 Balance 0 / 0 3646 / 3646 Weight 63.503 kg - Attending Attestation I examined this patient and my medical decision-making was reviewed with the Resident Physician. I agree with the documented findings, disposition and treatment plan as described except to the extent set forth below. Patient seen and examined. Labs, radiology, chart personally reviewed. 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 Cardiovascular: Patient is receiving vasopressors GI: Nutrition per dietary and GI prophylaxis per routine. Keep patient nothing by mouth for now and antiemetic. Heme: DVT prophylaxis per routine ID: Continue antibiotics and plan to de-escalation. Patient with septic shock and had adequate resuscitation currently patient is on dopamine and Levophed and we will attempt to keep her only on 1 vasopressor if possible and to see which one she will respond better to it. Underlying source of infection to be controlled. Change antibiotic Renal; urine out put and renal funtion reviewed. Urology was consulted Endorcine: blood glucose is monitored Lines: all lines checked and no evidence of infections Skin: skin care to prevent pressure ulcers per nursing routine care I spent 35 min of Critical Care time with this patient. It involved decision making of high complexity to assess, manipulate, and support vital organ system failure and/or to prevent further life threatening deterioration of the patient' s condition. The time involved in the performance of separately reportable procedures was not counted toward critical care time.
--- NOTE | 2017-09-23 08:38 | Urology - Consult Note ---
Date of Encounter: 09/23/17 Time of Encounter: 08:35 - Assessment and Plan (1) UTI (urinary tract infection) Current Visit: Yes Status: Acute Assessment and plan: 77-year-old woman with a history of urinary tract infection. We placed a Perez catheter today. The catheter irrigates well. We will send another culture from the catheter. Continue broad-spectrum antibiotics for now and taper as her urine cultures returned. Appreciate ICU support. Qualifiers: Urinary tract infection type: acute cystitis Hematuria presence: without hematuria Qualified Code(s): N30.00 - Acute cystitis without hematuria (2) Bladder stone Current Visit: No Status: Acute Assessment and plan: She has a large bladder stone as well as a left renal stone. If we are able to get her infection adequately treated, I will try to get her bladder stone treated more readily. She will need to be completely recovered from this infection prior to surgery for her safety. Continue Perez catheter for now. We will continue to follow along. Urology CN:[facility] Consult date: 09/23/17 Reason for consult Urology: Other History of present illness: 77-year-old woman presents with concern for urinary tract infection, left renal stone, and a known bladder stone. She was previously scheduled for surgery, but did not have adequate cardiology workup. Her surgery was canceled. She was recently admitted and began to develop hypotension. She has an elevated white count and is concerned for having UTI with sepsis. She was transferred to the ICU for further care. Nursing staff has not been able to place a catheter. Currently, the ICU resident and is placing a 16-[place] coude tipped catheter. She denies any pain. She says she is feeling otherwise okay. Past Med Surg Social Fam HX - Past Medical History Medical history: CHF, coronary artery disease, dementia, hyperlipidemia, hypertension, myocardial infarction, valvular heart disease, other Psychiatric history: anxiety - Past Surgical History Surgical History: no surgical history, angioplasty/stent, appendectomy, cataract , hysterectomy - Social History Smoking Status: Unknown if ever smoked Smokeless Tobacco Status: No Alcohol use: none Drug use: none Medications and Allergies Amlodipine Besylate 10 mg PO DAILY 05/01/16 [History] Atorvastatin [Lipitor] 20 mg PO HS 05/01/16 [History] Clopidogrel Bisulfate [Plavix] 75 mg PO HS 05/01/16 [History] Donepezil HCl [Aricept] 10 mg PO HS 05/01/16 [History] Isosorbide MONOnitrate (24 HR) [Imdur] 60 mg PO DAILY 05/01/16 [History] Metoprolol Tartrate [Lopressor] 50 mg PO BID 05/01/16 [History] Potassium Chloride [Klor-Con 10] 20 meq PO DAILY 05/01/16 [History] Multivitamin/Iron/Folic Acid [Centrum Complete Multivit Tab] 1 tab PO DAILY [History] Memantine HCl [Namenda Xr] 28 mg PO DAILY 08/16/17 [History] Oxybutynin Chloride [Ditropan Xl] 5 mg PO DAILY 08/17/17 [History] Pantoprazole Sodium 40 mg PO DAILY PRN 08/17/17 [History] HYDROcodone/Acet 5/325 mg [[place] 5-325 mg] 1 tab PO TID PRN 09/01/17 [History] Lactobacillus Acidophilus [Acidophilus] 2 cap PO BID 09/01/17 [History] 3 Allergy/AdvReac Type Severity Reaction Status Date / Time codeine AdvReac Gastrointestinal Verified 09/01/17 09:56 Upset Penicillins AdvReac Gastrointestinal Verified 09/01/17 09:56 Upset Sulfa (Sulfonamide AdvReac Gastrointestinal Verified 09/01/17 09:56 Antibiotics) Upset, Rash sulfamethoxazole AdvReac Gastrointestinal Verified 09/01/17 09:56 [From Bactrim] Upset, Rash trimethoprim [From Bactrim] AdvReac Gastrointestinal Verified 09/01/17 09:56 Upset, Rash Review of Systems - Constitutional fever(s), no chills - EENT Nose, mouth and throat: no dizziness - Cardiovascular no chest pain - Respiratory no dyspnea - Gastrointestinal no nausea, no vomiting - Genitourinary Genitourinary: no flank pain, no hematuria - Musculoskeletal no back pain - Integumentary no erythema, no rash - Neurological no weakness - Psychiatric no suicidal ideation - Hematologic/Lymphatic no easy bleeding - Allergic/Immunologic no wheezing Exam Initial Vital Signs Temp Pulse Resp BP Pulse Ox 99.0 F 72 22 137/97 94 09/22/17 13:23 09/22/17 13:23 09/22/17 13:23 09/22/17 13:23 09/22/17 13:23 - General physical appearance Present: well developed, well nourished, no distress - Eyes Absent: icteric - ENT Present: normal nares - Neck Present: trachea midline - Respiratory Present: normal respiratory effort - Cardiovascular Cardiovascular exam IM: tachycardia - Abdomen Abdomen: Present: soft - Genitourinary Present: normal external genitalia - Integumentary Present: no rash - Neurologic Present: normal coordination - Musculoskeletal Present: other (grossly normal) Urology Results - Labs 09/23/17 04:00 09/23/17 04:00 Abnormal lab results WBC 45.3 K/mcL (4.3-11.1) H* D 09/23/17 04:00 RBC 3.17 M/mcL (3.82-4.97) L 09/23/17 04:00 Hgb 9.8 g/dL (11.5-15.4) L D 09/23/17 04:00 Hct 31.1 % (35.3-44.9) L 09/23/17 04:00 MCHC 31.5 g/dL (31.6-35.5) L 09/23/17 04:00 Plt Count 108 K/mcL (140-400) L 09/23/17 04:00 Band Neutrophils % 12.0 % (0-4) H 09/23/17 04:00 Neutrophils # 39.9 K/mcL (1.6-8.9) H 09/23/17 04:00 Monocytes # 1.8 K/mcL (0.0-1.3) H 09/23/17 04:00 Basophils # 0.5 K/mcL (0.0-0.2) H 09/22/17 14:50 Reactive Lymphocytes Present (Not Present) A 09/23/17 04:00 Platelet Estimate Slight Decrease (Normal) L 09/23/17 04:00 Chloride 115 mEq/L (98-107) H 09/23/17 04:00 Carbon Dioxide 15 mEq/L (23-29) L 09/23/17 04:00 BUN 31 mg/dL (8-23) H 09/23/17 04:00 Creatinine 1.50 mg/dL (0.60-1.20) H 09/23/17 04:00 Est GFR ( Amer) 41 (> 60) L 09/23/17 04:00 Est GFR (Non-Af Amer) 34 (> 60) L 09/23/17 04:00 Glucose 163 mg/dL (70-105) H 09/23/17 04:00 Calcium 8.2 mg/dL (8.6-10.3) L 09/23/17 04:00 Urine Clarity Turbid (Clear) A 09/22/17 15:12 Urine Protein >=300 mg/dL (Neg-Trace) H 09/22/17 15:12 Urine Blood Large (Negative) H 09/22/17 15:12 Ur Leukocyte Esterase Large (Negative) H 09/22/17 15:12 Urine Microscopic WBC TNTC per hpf (0-3) H 09/22/17 15:12 Ur Culture Indicated? YES (NO) A 09/22/17 15:12 Diabetes panel 09/23/17 Range/Units 04:00 Sodium 139 (136-145) mEq/L Potassium 4.0 (3.5-5.1) mEq/L Chloride 115 H (98-107) mEq/L Carbon Dioxide 15 L (23-29) mEq/L BUN 31 H (8-23) mg/dL Creatinine 1.50 H (0.60-1.20) mg/dL Glucose 163 H (70-105) mg/dL Calcium 8.2 L (8.6-10.3) mg/dL Calcium panel 09/23/17 Range/Units 04:00 Calcium 8.2 L (8.6-10.3) mg/dL Pituitary panel 09/23/17 Range/Units 04:00 Sodium 139 (136-145) mEq/L Potassium 4.0 (3.5-5.1) mEq/L Chloride 115 H (98-107) mEq/L Carbon Dioxide 15 L (23-29) mEq/L BUN 31 H (8-23) mg/dL Creatinine 1.50 H (0.60-1.20) mg/dL Glucose 163 H (70-105) mg/dL Calcium 8.2 L (8.6-10.3) mg/dL Adrenal panel 09/23/17 Range/Units 04:00 Sodium 139 (136-145) mEq/L Potassium 4.0 (3.5-5.1) mEq/L Chloride 115 H (98-107) mEq/L Carbon Dioxide 15 L (23-29) mEq/L BUN 31 H (8-23) mg/dL Creatinine 1.50 H (0.60-1.20) mg/dL Glucose 163 H (70-105) mg/dL Calcium 8.2 L (8.6-10.3) mg/dL All other labs normal. - Imaging CT scan - abdomen: report reviewed, image reviewed CT scan - pelvis: report reviewed, image reviewed Procedures:Urology - Catheter Insertion (Urinary) Additional comments: Under my supervision the resident placed a 16-Niuean coude-tip catheter. Clear urine returned. I inflated the balloon. The catheter was irrigated and the urine was clear. She tolerated procedure well. Consult Discharge Plan - Plan Referrals: NONE,PCP [Primary Care Provider] -
[2017-09-23] MEDS: 0.9 % Sodium Chloride 1,000 ML IVC SCH ×3 (08:59→20:21)
[2017-09-23] MEDS: Lactobacillus 1 EACH CAP.SPRINK PO SCH ×2 (09:00→21:37)
[2017-09-23] MEDS: Isosorbide MONOnitrate (24 HR) 60 MG TAB.ER.24H PO SCH (09:00)
[2017-09-23] MEDS ORDERED: amLODIPine 5 MG TABLET PO SCH (09:00)
[2017-09-23] MEDS: cefTRIAXone 2,000 MG in Water for inj. (sterile) 20 ML 20 ML IVP SCH (09:04)
[2017-09-23 10:51] LABS: Acinetobacter baumannii by PCR Not Detected (Not Detect); Candida albicans by PCR Not Detected (Not Detect); Candida glabrata by PCR Not Detected (Not Detect); Candida krusei by PCR Not Detected (Not Detect); Candida parapsilosis by PCR Not Detected (Not Detect); Candida tropicalis by PCR Not Detected (Not Detect); Enterococcus by PCR Not Detected (Not Detect); Escherichia coli by PCR ***DETECTED*** (Not Detect); Klebsiella oxytoca by PCR Not Detected (Not Detect); Klebsiella pneumoniae by PCR Not Detected (Not Detect); Pseudomonas aeruginosa by PCR Not Detected (Not Detect); Serratia marcescens by PCR Not Detected (Not Detect); Staphylococcus aureus by PCR Not Detected (Not Detect); Streptococcus agalactiae(B)PCR Not Detected (Not Detect); Streptococcus by PCR Not Detected (Not Detect); Streptococcus pneumoniae PCR Not Detected (Not Detect); Streptococcus pyogenes (A) PCR Not Detected (Not Detect); blaKPC Carbapenem-Resist Gene Not Detected (Not Detect); mecA Methicillin-Resist Gene Not Detected (Not Detect); vanA/B Vancomycin-Resist Genes Not Detected (Not Detect)
--- NOTE | 2017-09-23 11:37 | Pulmonology Progress Note ---
<Fortino Ortiz - Last Filed: 09/23/17 11:47> Date of Encounter: 09/23/17 Time of Encounter: 11:34 Assessment and Plan (1) Bacteremia Current Visit: Yes Status: Acute Blood culture obtained from peripheral source on 09/22 cultured E.coli PLAN -Continue supportive care with antibiotics -We will obtain repeat blood cultures today (2) UTI (urinary tract infection) Current Visit: Yes Status: Acute Urinalysis concerning for UTI-on appropriate antibiotics based on prior urine cultures. urine culture ordered stop meropenem and begin Rocephin Qualifiers: Urinary tract infection type: acute cystitis Hematuria presence: without hematuria Qualified Code(s): N30.00 - Acute cystitis without hematuria (3) Bladder stone Current Visit: No Status: Acute abdominal CT 08/16/2017 demonstrating a large bladder stone, not obstructing 13 mm stone in the left renal pelvis. -urology consulted. They are familiar with this patient. -management as above -Full catheter placed (4) Dementia Current Visit: Yes Status: Acute History of known dementia taking Namenda and Aricept continue home medications Qualifiers: Dementia type: unspecified type Dementia behavioral disturbance: without behavioral disturbance Qualified Code(s): F03.90 - Unspecified dementia without behavioral disturbance (5) CAD (coronary artery disease) Current Visit: No Status: Chronic History of CAD taking Plavix, Lipitor, amlodipine, Lopressor, Imdur holding home BP meds due to hypotension continue home Plavix and Lipitor Qualifiers: Coronary Disease-Associated Artery/Lesion type: [place] artery [place] vs. transplanted heart: [place] heart Associated angina: without angina Qualified Code(s): I25.10 - Atherosclerotic heart disease of [place] coronary artery without angina pectoris (6) Leukocytosis Current Visit: Yes Status: Acute Likely secondary to sepsis. As above Qualifiers: Leukocytosis type: unspecified Qualified Code(s): D72.829 - Elevated white blood cell count, unspecified (7) DVT prophylaxis Current Visit: No Status: Acute Heparin SQ (8) Septic shock Current Visit: No Status: Resolved Patient meets septic shock criteria with hypotension refractory to IV fluids. This is secondary to UTI and stone in bladder. WBC 45.3 (26.9) worsening, afebrile now (temperature was 103) abdominal CT 08/16/2017 demonstrating a large bladder stone, not obstructing 13 mm stone in the left renal pelvis -patient is on levophed and dopamine. Will wean dopamine is tolerated -stop meropenem -start Rocephin-2g daily- urine cultures in the past for pansensitive Escherichia coli. -Blood culture ordered -urine culture ordered (9) Acute kidney failure Current Visit: No Status: Resolved Acute renal failure likely secondary to bladder stone and dehydration creatinine 1.5 (1.79) improving -Avoid nephrotoxic agents -continue to monitor serum creatinine -continue IV fluids -Monitoring I's nodes. Qualifiers: Acute renal failure type: unspecified Qualified Code(s): N17.9 - Acute kidney failure, unspecified Subjective Principal diagnosis: Urosepsis, septic shock, bladder stone, acute renal failure Interval history: Patient seen and examined this morning. Patient is alert with a history of baseline dementia. Patient was admitted to 2A for treatment of a UTI. Patient was found to have urosepsis with a temperature of 100.3 hypotensive despite aggressive fluid boluses. Patient was transferred to the ICU on dopamine as well as Levophed. At the time my exam the patient is alert and is able to answer questions patient does appear confused. Patient denies any abdominal pain. No chest pain or shortness of breath. Objective PUL Vital signs: Last Vital Signs Temp 97.9 F 09/23/17 07:55 Pulse 70 09/23/17 10:00 Resp 17 09/23/17 10:00 BP 85/53 09/23/17 10:00 Pulse Ox 100 09/23/17 10:00 General appearance: no acute distress, alert Eyes: nonicteric ENT: oropharynx moist Neck: supple Effort: normal Auscultation: bilateral: clear Cardiovascular: regular rate and rhythm Gastrointestinal: normoactive bowel sounds, non-tender, non-distended Integumentary: normal Extremities: no cyanosis Musculoskeletal: no deformities non-focal exam, CN II-XII normal, other (Appears pleasantly confused with some questioning.) Results - Laboratory Findings CBC and BMP: 09/23/17 04:00 09/23/17 04:00 Abnormal lab findings: Abnormal lab results WBC 45.3 K/mcL (4.3-11.1) H* D 09/23/17 04:00 RBC 3.17 M/mcL (3.82-4.97) L 09/23/17 04:00 Hgb 9.8 g/dL (11.5-15.4) L D 09/23/17 04:00 Hct 31.1 % (35.3-44.9) L 09/23/17 04:00 MCHC 31.5 g/dL (31.6-35.5) L 09/23/17 04:00 Plt Count 108 K/mcL (140-400) L 09/23/17 04:00 Band Neutrophils % 12.0 % (0-4) H 09/23/17 04:00 Neutrophils # 39.9 K/mcL (1.6-8.9) H 09/23/17 04:00 Monocytes # 1.8 K/mcL (0.0-1.3) H 09/23/17 04:00 Basophils # 0.5 K/mcL (0.0-0.2) H 09/22/17 14:50 Reactive Lymphocytes Present (Not Present) A 09/23/17 04:00 Platelet Estimate Slight Decrease (Normal) L 09/23/17 04:00 Chloride 115 mEq/L (98-107) H 09/23/17 04:00 Carbon Dioxide 15 mEq/L (23-29) L 09/23/17 04:00 BUN 31 mg/dL (8-23) H 09/23/17 04:00 Creatinine 1.50 mg/dL (0.60-1.20) H 09/23/17 04:00 Est GFR ( Amer) 41 (> 60) L 09/23/17 04:00 Est GFR (Non-Af Amer) 34 (> 60) L 09/23/17 04:00 Glucose 163 mg/dL (70-105) H 09/23/17 04:00 POC Glucose 135 mg/dL (70-99) H 09/23/17 11:06 Calcium 8.2 mg/dL (8.6-10.3) L 09/23/17 04:00 Urine Clarity Turbid (Clear) A 09/22/17 15:12 Urine Protein >=300 mg/dL (Neg-Trace) H 09/22/17 15:12 Urine Blood Large (Negative) H 09/22/17 15:12 Ur Leukocyte Esterase Large (Negative) H 09/22/17 15:12 Urine Microscopic WBC TNTC per hpf (0-3) H 09/22/17 15:12 Ur Culture Indicated? YES (NO) A 09/22/17 15:12 Enterobacteriac sp PCR DETECTED (Not Detect) A 09/22/17 17:13 E. coli (PCR) DETECTED (Not Detect) A 09/22/17 17:13 - Microbiology Findings Microbiology Findings: Microbiology, Last 48 Hours 09/22/17 17:13 Blood Culture - Preliminary Peripheral Venipuncture Gram Negative Torres - Diagnostic Findings Chest x-ray: report reviewed - Clinical Findings Intake & Output: Intake & Output 09/22/17 09/23/17 09/23/17 23:59 07:59 15:59 Intake Total 0 / 0 3900 / 3900 20 / 20 Output Total 0 / 0 0 / 0 150 / 150 Balance 0 / 0 3900 / 3900 -130 / -130 Weight 63.503 kg Consult Discharge Plan - Plan Referrals: NONE,PCP [Primary Care Provider] - <Lexus Pisano - Last Filed: 09/25/17 08:06> Date of Encounter: 09/25/17 Objective PUL Vital signs: Last Vital Signs Temp 99 F 09/25/17 04:00 Pulse 74 09/25/17 07:27 Resp 22 09/25/17 07:00 BP 136/73 09/25/17 07:00 Pulse Ox 96 09/25/17 07:00 Results - Laboratory Findings CBC and BMP: 09/25/17 03:43 09/25/17 03:43 Abnormal lab findings: Abnormal lab results WBC 21.0 K/mcL (4.3-11.1) H 09/25/17 03:43 RBC 2.92 M/mcL (3.82-4.97) L 09/25/17 03:43 Hgb 9.2 g/dL (11.5-15.4) L 09/25/17 03:43 Hct 28.0 % (35.3-44.9) L 09/25/17 03:43 Plt Count 70 K/mcL (140-400) L 09/25/17 03:43 Band Neutrophils % 12.0 % (0-4) H 09/23/17 04:00 Neutrophils # 18.9 K/mcL (1.6-8.9) H 09/25/17 03:43 Nucleated RBCs/100 WBC 0.1 /100 WBC (0) H 09/25/17 03:43 Reactive Lymphocytes Present (Not Present) A 09/23/17 04:00 Toxic Granulation Present (Not Present) A 09/25/17 03:43 Platelet Estimate Decreased (Normal) L 09/25/17 03:43 Sodium 146 mEq/L (136-145) H 09/25/17 03:43 Chloride 122 mEq/L (98-107) H 09/25/17 03:43 Carbon Dioxide 21 mEq/L (23-29) L 09/25/17 03:43 Creatinine 0.57 mg/dL (0.60-1.20) L 09/25/17 03:43 POC Glucose 140 mg/dL (70-99) H 09/24/17 17:12 Calculated Osmolality 302 (280-300) H 09/25/17 03:43 Calcium 8.4 mg/dL (8.6-10.3) L 09/25/17 03:43 Urine Clarity Turbid (Clear) A 09/22/17 15:12 Urine Protein >=300 mg/dL (Neg-Trace) H 09/22/17 15:12 Urine Blood Large (Negative) H 09/22/17 15:12 Ur Leukocyte Esterase Large (Negative) H 09/22/17 15:12 Urine Microscopic WBC TNTC per hpf (0-3) H 09/22/17 15:12 Ur Culture Indicated? YES (NO) A 09/22/17 15:12 Enterobacteriac sp PCR DETECTED (Not Detect) A 09/22/17 17:13 E. coli (PCR) DETECTED (Not Detect) A 09/22/17 17:13 - Clinical Findings Intake & Output: Intake & Output 09/24/17 09/25/17 09/25/17 23:59 07:59 15:59 Intake Total 620 / 620 1140 / 1140 416 / 416 Output Total 950 / 950 200 / 200 Balance -330 / -330 940 / 940 416 / 416 - Attending Attestation I examined this patient and my medical decision-making was reviewed with the Resident Physician. I agree with the documented findings, disposition and treatment plan as described except to the extent set forth below. Please see consult for more details on 09/23/2017
[2017-09-23] MEDS: Acetaminophen 325 MG TABLET PO PRN (19:24)
[2017-09-24] MEDS: Norepinephrine 4 MG in D5% in Water 250 ML IVC SCH (01:25)
[2017-09-24] MEDS: 0.9 % Sodium Chloride 1,000 ML IVC SCH ×3 (04:25→13:13)
[2017-09-24 04:52] LABS: Basophils % 0.1 %; Eosinophils % 0.1 %; Hemoglobin 9.9 g/dL (11.5-15.4); Mean Platelet Volume 11.4 fL (9.4-12.4); Red Cell Distribution Width 14.2 % (11.5-14.5)
[2017-09-24 04:53] LABS: Hematocrit 29.9 % (35.3-44.9); Immature Granulocytes % 8.2 % (0-4); Immature Platelets 5.4 % (1.1-6.1); Lymphocytes # 1.2 K/mcL (0.6-4.6); Lymphocytes % 5.4 %; Mean Corpuscular HGB Conc 33.1 g/dL (31.6-35.5); Mean Corpuscular Hemoglobin 31.9 pg (28.0-33.3); Mean Corpuscular Volume 96.5 fL (83.0-100.0); Monocytes # 0.7 K/mcL (0.0-1.3); Neutrophils # 18.5 K/mcL (1.6-8.9); Nucleated Red Blood Cells 0.1 /100 WBC (0); Segmented Neutrophils % 83.2 %
[2017-09-24 04:56] LABS: Platelet Count 74 K/mcL (140-400)
[2017-09-24 05:11] LABS: BUN/Creatinine Ratio 29 (6-26); Blood Urea Nitrogen 22 mg/dL (8-23); Calcium 8.6 mg/dL (8.6-10.3); Carbon Dioxide 19 mEq/L (23-29); Chloride 122 mEq/L (98-107); Glucose 85 mg/dL (70-105); Magnesium 1.2 mg/dL (1.6-2.6); Osmolality,Calculated 307 (280-300); Potassium 3.4 mEq/L (3.5-5.1); Sodium 147 mEq/L (136-145); eGFR For African Americans > 60 (> 60); eGFR For Non-African Americans > 60 (> 60)
[2017-09-24 05:21] LABS: Platelet Estimate Decreased (Normal); Toxic Granulation Present (Not Present)
--- NOTE | 2017-09-24 06:58 | Pulmonology Progress Note ---
<Fortino Ortiz - Last Filed: 09/24/17 10:11> Date of Encounter: 09/24/17 Time of Encounter: 10:11 Assessment and Plan (1) Bacteremia Current Visit: Yes Status: Acute Blood culture obtained from peripheral source on 09/22 cultured E.coli. Overall the patient is clinically improving. We will decrease the patient's IV fluids as the patient is starting to tolerate by mouth. PLAN -Continue supportive care with antibiotics. Day 2 of Rocephin -Blood cultures on 09/22 show a gram-negative joey. Sensitivities pending however urine catheter showed Escherichia coli pansensitive on that same date. -Blood cultures on 09/23 pending (2) UTI (urinary tract infection) Current Visit: Yes Status: Acute Urinalysis concerning for UTI-on appropriate antibiotics based on prior urine cultures. Overall clinical picture is improving. urine culture-pansensitive Escherichia coli. Day 2 of Rocephin Qualifiers: Urinary tract infection type: acute cystitis Hematuria presence: without hematuria Qualified Code(s): N30.00 - Acute cystitis without hematuria (3) Bladder stone Current Visit: No Status: Acute abdominal CT 08/16/2017 demonstrating a large bladder stone, not obstructing 13 mm stone in the left renal pelvis. -urology consulted. They are familiar with this patient. Appreciate their recommendations. -management as above -Full catheter placed (4) Dementia Current Visit: Yes Status: Acute History of known dementia taking Namenda and Aricept continue home medications Qualifiers: Dementia type: unspecified type Dementia behavioral disturbance: without behavioral disturbance Qualified Code(s): F03.90 - Unspecified dementia without behavioral disturbance (5) CAD (coronary artery disease) Current Visit: No Status: Chronic History of CAD taking Plavix, Lipitor, amlodipine, Lopressor, Imdur holding home BP meds due to hypotension continue home Plavix and Lipitor Qualifiers: Coronary Disease-Associated Artery/Lesion type: [place] artery [place] vs. transplanted heart: [place] heart Associated angina: without angina Qualified Code(s): I25.10 - Atherosclerotic heart disease of [place] coronary artery without angina pectoris (6) Leukocytosis Current Visit: Yes Status: Acute Likely secondary to sepsis. Improving on appropriate antibiotics. We will continue to trend. As above Qualifiers: Leukocytosis type: unspecified Qualified Code(s): D72.829 - Elevated white blood cell count, unspecified (7) DVT prophylaxis Current Visit: No Status: Acute Heparin SQ Subjective Principal diagnosis: Urosepsis, septic shock, bladder stone, acute renal failure Interval history: Patient seen and examined this morning. Patient is alert with a history of baseline dementia. Patient was admitted to 2A for treatment of a UTI. Patient was found to have urosepsis with a temperature of 100.3 hypotensive despite aggressive fluid boluses. Patient was transferred to the ICU on dopamine as well as Levophed. Patient was titrated off her dopamine remained on low dose of Levophed. Patient was seen and examined this morning. Patient denies any needs at this time. Patient states he is feeling better. Patient states she does have an appetite and wishes to have something to eat. Objective PUL Vital signs: Last Vital Signs Temp 99.3 F 09/24/17 03:15 Pulse 76 09/24/17 06:00 Resp 24 09/24/17 06:00 BP 117/96 09/24/17 06:00 Pulse Ox 94 09/24/17 06:00 General appearance: no acute distress Eyes: nonicteric ENT: oropharynx moist Neck: supple Effort: normal Cardiovascular: regular rate and rhythm Gastrointestinal: normoactive bowel sounds Integumentary: normal Extremities: no cyanosis Musculoskeletal: no deformities non-focal exam, CN II-XII normal Results - Laboratory Findings CBC and BMP: 09/24/17 04:00 09/24/17 04:00 Abnormal lab findings: Abnormal lab results WBC 22.2 K/mcL (4.3-11.1) H D 09/24/17 04:00 RBC 3.10 M/mcL (3.82-4.97) L 09/24/17 04:00 Hgb 9.9 g/dL (11.5-15.4) L 09/24/17 04:00 Hct 29.9 % (35.3-44.9) L 09/24/17 04:00 Plt Count 74 K/mcL (140-400) L 09/24/17 04:00 Immature Gran % 8.2 % (0-4) H 09/24/17 04:00 Band Neutrophils % 12.0 % (0-4) H 09/23/17 04:00 Neutrophils # 18.5 K/mcL (1.6-8.9) H 09/24/17 04:00 Nucleated RBCs/100 WBC 0.1 /100 WBC (0) H 09/24/17 04:00 Reactive Lymphocytes Present (Not Present) A 09/23/17 04:00 Toxic Granulation Present (Not Present) A 09/24/17 04:00 Platelet Estimate Decreased (Normal) L 09/24/17 04:00 Sodium 147 mEq/L (136-145) H 09/24/17 04:00 Potassium 3.4 mEq/L (3.5-5.1) L 09/24/17 04:00 Chloride 122 mEq/L (98-107) H 09/24/17 04:00 Carbon Dioxide 19 mEq/L (23-29) L 09/24/17 04:00 BUN/Creatinine Ratio 29 (6-26) H 09/24/17 04:00 Calculated Osmolality 307 (280-300) H 09/24/17 04:00 Magnesium 1.2 mg/dL (1.6-2.6) L 09/24/17 04:00 Urine Clarity Turbid (Clear) A 09/22/17 15:12 Urine Protein >=300 mg/dL (Neg-Trace) H 09/22/17 15:12 Urine Blood Large (Negative) H 09/22/17 15:12 Ur Leukocyte Esterase Large (Negative) H 09/22/17 15:12 Urine Microscopic WBC TNTC per hpf (0-3) H 09/22/17 15:12 Ur Culture Indicated? YES (NO) A 09/22/17 15:12 Enterobacteriac sp PCR DETECTED (Not Detect) A 09/22/17 17:13 E. coli (PCR) DETECTED (Not Detect) A 09/22/17 17:13 - Clinical Findings Intake & Output: Intake & Output 09/23/17 09/23/17 09/24/17 15:59 23:59 07:59 Intake Total 1054 / 1372 1126 / 1126 Output Total 975 / 2700 150 / 150 Balance 79 / -1328 976 / 976 Weight 65 kg Consult Discharge Plan - Plan Referrals: NONE,PCP [Primary Care Provider] - <Marta Andrew - Last Filed: 09/24/17 22:58> Date of Encounter: 05/13/18 Objective PUL Vital signs: Last Vital Signs Temp 98.3 F 09/24/17 18:56 Pulse 87 09/24/17 22:00 Resp 16 09/24/17 22:00 BP 110/51 09/24/17 22:00 Pulse Ox 93 09/24/17 22:00 Results - Laboratory Findings CBC and BMP: 09/24/17 17:30 09/24/17 13:15 Abnormal lab findings: Abnormal lab results WBC 23.4 K/mcL (4.3-11.1) H 09/24/17 17:30 RBC 3.28 M/mcL (3.82-4.97) L 09/24/17 17:30 Hgb 10.5 g/dL (11.5-15.4) L 09/24/17 17:30 Hct 31.7 % (35.3-44.9) L 09/24/17 17:30 Plt Count 73 K/mcL (140-400) L 09/24/17 17:30 Band Neutrophils % 12.0 % (0-4) H 09/23/17 04:00 Neutrophils # 20.9 K/mcL (1.6-8.9) H 09/24/17 17:30 Nucleated RBCs/100 WBC 0.1 /100 WBC (0) H 09/24/17 17:30 Reactive Lymphocytes Present (Not Present) A 09/23/17 04:00 Toxic Granulation Present (Not Present) A 09/24/17 04:00 Platelet Estimate Decreased (Normal) L 09/24/17 17:30 Chloride 120 mEq/L (98-107) H 09/24/17 13:15 Carbon Dioxide 17 mEq/L (23-29) L 09/24/17 13:15 Glucose 141 mg/dL (70-105) H 09/24/17 13:15 POC Glucose 140 mg/dL (70-99) H 09/24/17 17:12 Calculated Osmolality 301 (280-300) H 09/24/17 13:15 Urine Clarity Turbid (Clear) A 09/22/17 15:12 Urine Protein >=300 mg/dL (Neg-Trace) H 09/22/17 15:12 Urine Blood Large (Negative) H 09/22/17 15:12 Ur Leukocyte Esterase Large (Negative) H 09/22/17 15:12 Urine Microscopic WBC TNTC per hpf (0-3) H 09/22/17 15:12 Ur Culture Indicated? YES (NO) A 09/22/17 15:12 Enterobacteriac sp PCR DETECTED (Not Detect) A 09/22/17 17:13 E. coli (PCR) DETECTED (Not Detect) A 09/22/17 17:13 - Clinical Findings Intake & Output: Intake & Output 09/24/17 09/24/17 09/24/17 07:59 15:59 23:59 Intake Total 1126 / 1126 684 / 684 620 / 620 Output Total 150 / 150 550 / 550 500 / 500 Balance 976 / 976 134 / 134 120 / 120 - Attending Attestation I saw and evaluated this patient and my medical decision-making was reviewed with the Resident Physician. I agree with the documented findings, disposition and treatment plan as described except to the extent set forth below. We independently had [id number] contact with the patient. Patient seen and examined at bedside Labs, radiology, chart personally reviewed. Management was reviewed during multidisciplinary critical care rounds. 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 FEN-GI:Nutrition recs Renal:Lans and output reviewed ID:No active bacterial infection Heme/Onc: DVT prohylasixe Endo: Glucose Monitored Integ/MSK: Skin Care per routine ICU Nursing Protocol to prevent ulcers. Lines: All lines examined without evidence of infection : Dispo: Reman in critical ill CODE: Full Code
[2017-09-24] MEDS: Lactobacillus 1 EACH CAP.SPRINK PO SCH ×2 (09:05→20:25)
[2017-09-24] MEDS: cefTRIAXone 2,000 MG in Water for inj. (sterile) 20 ML 20 ML IVP SCH (09:05)
[2017-09-24] MEDS: Nystatin Cream 15 GM TUBE TP SCH ×2 (09:06→20:25)
[2017-09-24] MEDS: Isosorbide MONOnitrate (24 HR) 60 MG TAB.ER.24H PO SCH (09:06)
[2017-09-24 14:00] LABS: BUN/Creatinine Ratio 24 (6-26); Blood Urea Nitrogen 19 mg/dL (8-23); Calcium 8.7 mg/dL (8.6-10.3); Carbon Dioxide 17 mEq/L (23-29); Chloride 120 mEq/L (98-107); Glucose 141 mg/dL (70-105); Magnesium 2.4 mg/dL (1.6-2.6); Osmolality,Calculated 301 (280-300); Potassium 3.5 mEq/L (3.5-5.1); Sodium 143 mEq/L (136-145); eGFR For African Americans > 60 (> 60); eGFR For Non-African Americans > 60 (> 60)
[2017-09-24] MEDS ORDERED: Levofloxacin 750 MG/150 ML 750 MG/150 ML BAG IVPB SCH (16:00)
--- NOTE | 2017-09-24 16:36 | Urology Progress Note ---
Date of Encounter: 09/24/17 Time of Encounter: 16:34 - Assessment and Plan (1) UTI (urinary tract infection) Current Visit: Yes Status: Acute Assessment and plan: Continue IV antibiotic until her hypotension improves. Consider transitioning to oral antibiotic as her clinical condition improves. Qualifiers: Urinary tract infection type: acute cystitis Hematuria presence: without hematuria Qualified Code(s): N30.00 - Acute cystitis without hematuria (2) Bladder stone Current Visit: No Status: Acute Assessment and plan: I will need to treat her bladder stone once her infection has cleared. It may be possible to do it later this week on 09/28/2017 or Monday09/29/2017 depending upon how she does. Progress Note Narrative: 69-year-old woman with a large bladder stone and nephrolithiasis is seen in follow-up. Her catheter is draining clear urine. Urine culture is growing out pansensitive Escherichia coli. She remains in the ICU. She reports that she is feeling well. Objective Initial Vital Signs Temp Pulse Resp BP Pulse Ox 99.0 F 72 22 137/97 94 09/22/17 13:23 09/22/17 13:23 09/22/17 13:23 09/22/17 13:23 09/22/17 13:23 - General physical appearance Present: well developed, well nourished, no distress - Respiratory Present: normal respiratory effort - Abdomen Present: soft - Genitourinary Urine Appearance: Present: Clear (d) - Labs 09/24/17 04:00 09/24/17 13:15 Diabetes panel 09/24/17 09/24/17 Range/Units 04:00 13:15 Sodium 147 H 143 (136-145) mEq/L Potassium 3.4 L 3.5 (3.5-5.1) mEq/L Chloride 122 H 120 H (98-107) mEq/L Carbon Dioxide 19 L 17 L (23-29) mEq/L BUN 22 19 (8-23) mg/dL Creatinine 0.75 0.78 (0.60-1.20) mg/dL Glucose 85 141 H (70-105) mg/dL Calcium 8.6 8.7 (8.6-10.3) mg/dL Calcium panel 09/24/17 09/24/17 Range/Units 04:00 13:15 Calcium 8.6 8.7 (8.6-10.3) mg/dL Pituitary panel 09/24/17 09/24/17 Range/Units 04:00 13:15 Sodium 147 H 143 (136-145) mEq/L Potassium 3.4 L 3.5 (3.5-5.1) mEq/L Chloride 122 H 120 H (98-107) mEq/L Carbon Dioxide 19 L 17 L (23-29) mEq/L BUN 22 19 (8-23) mg/dL Creatinine 0.75 0.78 (0.60-1.20) mg/dL Glucose 85 141 H (70-105) mg/dL Calcium 8.6 8.7 (8.6-10.3) mg/dL Adrenal panel 09/24/17 09/24/17 Range/Units 04:00 13:15 Sodium 147 H 143 (136-145) mEq/L Potassium 3.4 L 3.5 (3.5-5.1) mEq/L Chloride 122 H 120 H (98-107) mEq/L Carbon Dioxide 19 L 17 L (23-29) mEq/L BUN 22 19 (8-23) mg/dL Creatinine 0.75 0.78 (0.60-1.20) mg/dL Glucose 85 141 H (70-105) mg/dL Calcium 8.6 8.7 (8.6-10.3) mg/dL Consult Discharge Plan - Plan Referrals: NONE,PCP [Primary Care Provider] -
[2017-09-24 18:38] LABS: Basophils % 0.1 %; Hemoglobin 10.5 g/dL (11.5-15.4); Lymphocytes % 5.9 %; Monocytes % 3.2 %
[2017-09-24 18:40] LABS: Hematocrit 31.7 % (35.3-44.9); Immature Granulocytes % 1.4 % (0-4); Immature Platelets 5.7 % (1.1-6.1); Lymphocytes # 1.4 K/mcL (0.6-4.6); Mean Corpuscular HGB Conc 33.1 g/dL (31.6-35.5); Mean Corpuscular Volume 96.6 fL (83.0-100.0); Monocytes # 0.8 K/mcL (0.0-1.3); Neutrophils # 20.9 K/mcL (1.6-8.9); Nucleated Red Blood Cells 0.1 /100 WBC (0); Red Blood Count 3.28 M/mcL (3.82-4.97); Red Cell Distribution Width 14.2 % (11.5-14.5); Segmented Neutrophils % 89.4 %
[2017-09-24 18:43] LABS: Platelet Count 73 K/mcL (140-400)
[2017-09-24 18:57] LABS: Platelet Estimate Decreased (Normal)
[2017-09-24] MEDS: metroNIDAZOLE 500 MG TABLET PO SCH (20:25)
[2017-09-24] MEDS ORDERED: *HR* HYDROcodone/Acet 5/325 mg TABLET PO PRN (20:37)
[2017-09-25] MEDS: 0.9 % Sodium Chloride 1,000 ML IVC SCH (02:26)
[2017-09-25 04:23] LABS: Basophils % 0.1 %; Hemoglobin 9.2 g/dL (11.5-15.4); Immature Granulocytes % 0.4 % (0-4); Lymphocytes % 5.2 %; Red Cell Distribution Width 14.4 % (11.5-14.5)
[2017-09-25 04:24] LABS: Eosinophils # 0.1 K/mcL (0.0-0.6); Eosinophils % 0.4 %; Immature Platelets 4.6 % (1.1-6.1); Lymphocytes # 1.1 K/mcL (0.6-4.6); Mean Corpuscular HGB Conc 32.9 g/dL (31.6-35.5); Mean Corpuscular Hemoglobin 31.5 pg (28.0-33.3); Mean Corpuscular Volume 95.9 fL (83.0-100.0); Mean Platelet Volume 11.9 fL (9.4-12.4); Monocytes # 0.8 K/mcL (0.0-1.3); Monocytes % 3.9 %; Neutrophils # 18.9 K/mcL (1.6-8.9); Nucleated Red Blood Cells 0.1 /100 WBC (0); Red Blood Count 2.92 M/mcL (3.82-4.97)
[2017-09-25 04:41] LABS: BUN/Creatinine Ratio 26 (6-26); Blood Urea Nitrogen 15 mg/dL (8-23); Calcium 8.4 mg/dL (8.6-10.3); Carbon Dioxide 21 mEq/L (23-29); Chloride 122 mEq/L (98-107); Glucose 91 mg/dL (70-105); Osmolality,Calculated 302 (280-300); Potassium 3.7 mEq/L (3.5-5.1); Sodium 146 mEq/L (136-145); eGFR For African Americans > 60 (> 60); eGFR For Non-African Americans > 60 (> 60)
[2017-09-25 04:47] LABS: Platelet Count 70 K/mcL (140-400)
[2017-09-25 04:49] LABS: Platelet Estimate Decreased (Normal); Toxic Granulation Present (Not Present)
[2017-09-25] MEDS: cefTRIAXone 2,000 MG in Water for inj. (sterile) 20 ML 20 ML IVP SCH (07:13)
[2017-09-25] MEDS: Isosorbide MONOnitrate (24 HR) 60 MG TAB.ER.24H PO SCH (07:14)
[2017-09-25] MEDS: Lactobacillus 1 EACH CAP.SPRINK PO SCH ×2 (07:14→20:10)
[2017-09-25] MEDS: metroNIDAZOLE 500 MG TABLET PO SCH (07:14)
[2017-09-25] MEDS: Nystatin Cream 15 GM TUBE TP SCH ×2 (07:15→20:11)
[2017-09-25] MEDS ORDERED: Vancomycin Oral Soln 250 MG/5 ML UDC PO SCH (09:00)
[2017-09-25] MEDS ORDERED: Pantoprazole 40 MG VIAL IVP SCH (09:00)
--- NOTE | 2017-09-25 09:46 | Pulmonology Progress Note ---
<ErvinesmeMinh moe W - Last Filed: 09/25/17 10:54> Date of Encounter: 09/25/17 Objective PUL Vital signs: Last Vital Signs Temp 99 F 09/25/17 04:00 Pulse 101 09/25/17 09:00 Resp 20 09/25/17 09:00 BP 137/81 09/25/17 09:00 Pulse Ox 95 09/25/17 09:00 Results - Laboratory Findings CBC and BMP: 09/25/17 03:43 09/25/17 03:43 Abnormal lab findings: Abnormal lab results WBC 21.0 K/mcL (4.3-11.1) H 09/25/17 03:43 RBC 2.92 M/mcL (3.82-4.97) L 09/25/17 03:43 Hgb 9.2 g/dL (11.5-15.4) L 09/25/17 03:43 Hct 28.0 % (35.3-44.9) L 09/25/17 03:43 Plt Count 70 K/mcL (140-400) L 09/25/17 03:43 Band Neutrophils % 12.0 % (0-4) H 09/23/17 04:00 Neutrophils # 18.9 K/mcL (1.6-8.9) H 09/25/17 03:43 Nucleated RBCs/100 WBC 0.1 /100 WBC (0) H 09/25/17 03:43 Reactive Lymphocytes Present (Not Present) A 09/23/17 04:00 Toxic Granulation Present (Not Present) A 09/25/17 03:43 Platelet Estimate Decreased (Normal) L 09/25/17 03:43 Sodium 146 mEq/L (136-145) H 09/25/17 03:43 Chloride 122 mEq/L (98-107) H 09/25/17 03:43 Carbon Dioxide 21 mEq/L (23-29) L 09/25/17 03:43 Creatinine 0.57 mg/dL (0.60-1.20) L 09/25/17 03:43 POC Glucose 140 mg/dL (70-99) H 09/24/17 17:12 Calculated Osmolality 302 (280-300) H 09/25/17 03:43 Calcium 8.4 mg/dL (8.6-10.3) L 09/25/17 03:43 Urine Clarity Turbid (Clear) A 09/22/17 15:12 Urine Protein >=300 mg/dL (Neg-Trace) H 09/22/17 15:12 Urine Blood Large (Negative) H 09/22/17 15:12 Ur Leukocyte Esterase Large (Negative) H 09/22/17 15:12 Urine Microscopic WBC TNTC per hpf (0-3) H 09/22/17 15:12 Ur Culture Indicated? YES (NO) A 09/22/17 15:12 Enterobacteriac sp PCR DETECTED (Not Detect) A 09/22/17 17:13 E. coli (PCR) DETECTED (Not Detect) A 09/22/17 17:13 - Clinical Findings Intake & Output: Intake & Output 09/24/17 09/25/17 09/25/17 23:59 07:59 15:59 Intake Total 620 / 620 1140 / 1140 776 / 776 Output Total 950 / 950 200 / 200 Balance -330 / -330 940 / 940 776 / 776 Consult Discharge Plan - Plan Referrals: NONE,PCP [Non-Partnered Physician] - - Attending Attestation I examined this patient and my medical decision-making was reviewed with the Resident Physician. I agree with the documented findings, disposition and treatment plan as described except to the extent set forth below. We independently had [id number] contact with the patient Patient seen and examined at bedside Labs, radiology, chart personally reviewed. Management was reviewed during multidisciplinary critical care rounds. SOCCER COACH: Patient appears be displaying baseline level of dementia high risk for delirium continue to avoid sensory/sleep deprivation Pulm: Acceptable oxygenation Cards: Blood pressure stable restart beta raiza for A. fib FEN-GI: Advance diet per nutrition/speech swallow evaluation Renal: Urine output monitored she has obstructive uropathy urology following ID: Sepsis secondary to UTI white count downtrending this as Escherichia coli and responding to ceftriaxone. Patient has recurrent C. difficile infection starting by mouth vancomycin for this Heme/Onc: DVT prophylaxis given Endo: Glucose Monitored Integ/MSK: Skin Care per routine ICU Nursing Protocol to prevent ulcers. Lines: All lines examined without evidence of infection : Dispo: Stable for transfer to [facility] for ongoing care CODE: Full <Isaiah Douglas - Last Filed: 09/25/17 13:38> Date of Encounter: 09/25/17 Time of Encounter: 09:00 Assessment and Plan (1) Septic shock Current Visit: Yes Status: Resolved - Septic shock on presentation with respiratory rate of 22, elevated WBC, lactic acid of 5.9 - Resolved at this time, vital signs within normal limits, elevated WBC secondary to C.difficile as below - Was bacteremic with pansensitive Escherichia coli on 09/22 - Repeat cultures on 09/23 are preliminary negative -Likely source is urine, urinalysis highly suggestive of infection and also grew pansensitive Escherichia coli - Lactic acid was trended to WNL - No longer requiring presser support, will discontinue central line Plan - Continue Rocephin day #3 - Continue to monitor cultures - Start vancomycin by mouth for C. difficile positive PCR as below, day #1 (2) UTI (urinary tract infection) Current Visit: Yes Status: Acute - As above for septic shock - Complicated by bacteremia and left renal stone - Urology following, appreciate recommendations. - Continue Abx as above Qualifiers: Urinary tract infection type: acute cystitis Hematuria presence: without hematuria Qualified Code(s): N30.00 - Acute cystitis without hematuria (3) C. difficile colitis Current Visit: Yes Status: Acute - Positive C.diff toxin on PCR - Loose stools reported overnight - WBC of 45.3 at most which has downtrended to 21.0 - Vitals otherwise stable - Start on IV Flagyl last evening, discontinued and oral vanc started, day #1 Plan - Continue diet, advance to softs - Continue PO vanc, day #1 - Monitor fluid status daily, daily labs (4) Acute renal failure Current Visit: Yes Status: Resolved - Elevated BUN/Cr at time of admission of 1.79 - Has now resolved, most recently 15/0.57 - Likely secondary to Dehydration, renal stone, UTI Plan - Continue to monitor with labs and fluid status - High risk to become prerenally depleted due to c.diff colitis Qualifiers: Acute renal failure type: with acute tubular necrosis Qualified Code(s): N17.0 - Acute kidney failure with tubular necrosis (5) Nephrolithiasis Current Visit: Yes Status: Acute - urology following - Per notes, possibility for stone extraction later in the week. (6) Dementia Current Visit: Yes Status: Acute - Continue home meds - AOx2 on exam, unsure baseline. Qualifiers: Dementia type: unspecified type Dementia behavioral disturbance: without behavioral disturbance Qualified Code(s): F03.90 - Unspecified dementia without behavioral disturbance (7) Bacteremia Current Visit: Yes Status: Acute - E.coli bacteremia with source of urine - Pansensitive on culture - Day 3 rocephin - repeat cultures on 09/23 preliminary negative. (8) Leukocytosis Current Visit: Yes Status: Acute - Secondary to septic shock as above. Qualifiers: Leukocytosis type: bandemia Qualified Code(s): D72.825 - Bandemia (9) Hypernatremia Current Visit: Yes Status: Acute - Na of 146 this AM, mildly increased from 143 yesterday - Likely secondary to decreased oral intake - Encourage diet and intake, will monitor (10) DVT prophylaxis Current Visit: Yes Status: Acute - heparin 5000 units q12 hrs Subjective Principal diagnosis: Urosepsis, septic shock, bladder stone, acute renal failure Interval history: Patient was seen and examined at bedside this morning. She states that overall she is feeling well with no further complaints of urinary symptoms, fevers, chills, chest pain, shortness of breath, nausea, vomiting. She is denying any symptoms of diarrhea at this time. Objective PUL Vital signs: Last Vital Signs Temp 99 F 09/25/17 04:00 Pulse 101 09/25/17 09:00 Resp 20 09/25/17 09:00 BP 137/81 09/25/17 09:00 Pulse Ox 95 09/25/17 09:00 Gen.: Vitals noted. No acute distress. AAOx2 HEENT: PERRL/EOMI, oropharynx clear, Normocephalic, atraumatic, MMM Cardiac: RRR, no murmur, +S1/S2 Pulmonary: CTA bilaterally, no wheezes, rales or rhonchi, equal chest expansion Abdomen: soft, nontender, BS noted, no guarding, no rebound, nondistended Extremities: no BLE edema, nontender calf, no cyanosis or clubbing Neuro: A&Ox2, moves all extremities, no focal deficits Psych: Appropriate mood and behavior Results - Laboratory Findings CBC and BMP: 09/25/17 03:43 09/25/17 03:43 Abnormal lab findings: Abnormal lab results WBC 21.0 K/mcL (4.3-11.1) H 09/25/17 03:43 RBC 2.92 M/mcL (3.82-4.97) L 09/25/17 03:43 Hgb 9.2 g/dL (11.5-15.4) L 09/25/17 03:43 Hct 28.0 % (35.3-44.9) L 09/25/17 03:43 Plt Count 70 K/mcL (140-400) L 09/25/17 03:43 Band Neutrophils % 12.0 % (0-4) H 09/23/17 04:00 Neutrophils # 18.9 K/mcL (1.6-8.9) H 09/25/17 03:43 Nucleated RBCs/100 WBC 0.1 /100 WBC (0) H 09/25/17 03:43 Reactive Lymphocytes Present (Not Present) A 09/23/17 04:00 Toxic Granulation Present (Not Present) A 09/25/17 03:43 Platelet Estimate Decreased (Normal) L 09/25/17 03:43 Sodium 146 mEq/L (136-145) H 09/25/17 03:43 Chloride 122 mEq/L (98-107) H 09/25/17 03:43 Carbon Dioxide 21 mEq/L (23-29) L 09/25/17 03:43 Creatinine 0.57 mg/dL (0.60-1.20) L 09/25/17 03:43 POC Glucose 140 mg/dL (70-99) H 09/24/17 17:12 Calculated Osmolality 302 (280-300) H 09/25/17 03:43 Calcium 8.4 mg/dL (8.6-10.3) L 09/25/17 03:43 Urine Clarity Turbid (Clear) A 09/22/17 15:12 Urine Protein >=300 mg/dL (Neg-Trace) H 09/22/17 15:12 Urine Blood Large (Negative) H 09/22/17 15:12 Ur Leukocyte Esterase Large (Negative) H 09/22/17 15:12 Urine Microscopic WBC TNTC per hpf (0-3) H 09/22/17 15:12 Ur Culture Indicated? YES (NO) A 09/22/17 15:12 Enterobacteriac sp PCR DETECTED (Not Detect) A 05/11/18 17:13 E. coli (PCR) DETECTED (Not Detect) A 09/22/17 17:13 - Clinical Findings Intake & Output: Intake & Output 09/24/17 09/25/17 09/25/17 23:59 07:59 15:59 Intake Total 620 / 620 1140 / 1140 776 / 776 Output Total 950 / 950 200 / 200 Balance -330 / -330 940 / 940 776 / 776
[2017-09-25] MEDS ORDERED: Naloxone 0.4 MG/ML INJ IVP PRN (11:37)
[2017-09-25] MEDS ORDERED: Acetaminophen 650 MG RECTAL SUPP RC PRN (11:37)
[2017-09-25] MEDS ORDERED: Ondansetron 4 MG/2 ML VIAL IVP PRN (11:37)
[2017-09-25] MEDS: Vancomycin Oral Soln 250 MG/5 ML UDC PO SCH ×3 (12:44→21:38)
[2017-09-25] MEDS: *HR* HYDROcodone/Acet 5/325 mg TABLET PO PRN ×2 (13:58→21:38)
[2017-09-25] MEDS: *HR* Heparin 5,000 UNIT/ML VIAL SQ SCH (16:18)
[2017-09-25] MEDS: Famotidine 20 MG TABLET PO SCH (20:10)
[2017-09-25] MEDS ORDERED: Famotidine 20 MG TABLET PO SCH (21:00)
[2017-09-26 04:59] LABS: Basophils % 0.2 %; Immature Granulocytes % 1.4 % (0-4); Mean Corpuscular HGB Conc 33.6 g/dL (31.6-35.5)
[2017-09-26 05:01] LABS: Eosinophils # 0.3 K/mcL (0.0-0.6); Eosinophils % 2.4 %; Hematocrit 30.1 % (35.3-44.9); Hemoglobin 10.1 g/dL (11.5-15.4); Immature Platelets 4.9 % (1.1-6.1); Lymphocytes # 1.5 K/mcL (0.6-4.6); Lymphocytes % 10.6 %; Mean Corpuscular Hemoglobin 31.6 pg (28.0-33.3); Mean Corpuscular Volume 94.1 fL (83.0-100.0); Mean Platelet Volume 11.5 fL (9.4-12.4); Monocytes # 0.9 K/mcL (0.0-1.3); Neutrophils # 11.2 K/mcL (1.6-8.9); Nucleated Red Blood Cells 0.3 /100 WBC (0); Segmented Neutrophils % 79.4 %
[2017-09-26 05:08] LABS: Platelet Count 68 K/mcL (140-400)
[2017-09-26 05:20] LABS: BUN/Creatinine Ratio 24 (6-26); Blood Urea Nitrogen 11 mg/dL (8-23); Calcium 8.4 mg/dL (8.6-10.3); Carbon Dioxide 20 mEq/L (23-29); Chloride 116 mEq/L (98-107); Glucose 88 mg/dL (70-105); Osmolality,Calculated 293 (280-300); Potassium 3.7 mEq/L (3.5-5.1); Sodium 142 mEq/L (136-145); eGFR For African Americans > 60 (> 60); eGFR For Non-African Americans > 60 (> 60)
[2017-09-26] MEDS: *HR* Heparin 5,000 UNIT/ML VIAL SQ SCH ×2 (05:24→18:13)
[2017-09-26 05:37] LABS: Platelet Estimate Decreased (Normal)
--- NOTE | 2017-09-26 07:27 | Urology Progress Note ---
Date of Encounter: 09/26/17 Time of Encounter: 07:25 - Assessment and Plan (1) UTI (urinary tract infection) Current Visit: Yes Status: Acute Qualifiers: Urinary tract infection type: acute cystitis Hematuria presence: without hematuria Qualified Code(s): N30.00 - Acute cystitis without hematuria (2) Bladder stone Current Visit: No Status: Acute Assessment and plan: 77-year-old woman with a large bladder stone and left renal stone. I recommend proceeding with a cystolitholapaxy, left ureteroscopic stone extraction with laser lithotripsy, and stent placement. She was informed of the risks of the procedure including but not limited to bleeding, infection, injury to other structures, need for further procedures, stent irritation, incomplete fragmentation, ureteral perforation, need for nephrostomy tube, need for open repair, risks unforeseen, and the risk of anesthesia. She is willing to proceed. My plan is to add her on for surgery on 09/28/2017 at the end of the day. I answered all questions. We will proceed so long as internal medicine is okay with planned surgery as well as anesthesia. Progress Note Narrative: 77-year-old woman with a history of a bladder stone and left renal stone is seen in follow-up. She has been transferred out of the ICU. Family would like to have her stones treated this hospital stay. Objective Initial Vital Signs Temp Pulse Resp BP Pulse Ox 99.0 F 72 22 137/97 94 09/22/17 13:23 09/22/17 13:23 09/22/17 13:23 09/22/17 13:23 09/22/17 13:23 - General physical appearance Present: well developed, well nourished, no distress - Respiratory Present: normal respiratory effort - Abdomen Present: soft - Genitourinary Urine Appearance: Present: Clear - Labs 09/26/17 04:33 09/26/17 04:33 Diabetes panel 09/26/17 Range/Units 04:33 Sodium 142 (136-145) mEq/L Potassium 3.7 (3.5-5.1) mEq/L Chloride 116 H (98-107) mEq/L Carbon Dioxide 20 L (23-29) mEq/L BUN 11 (8-23) mg/dL Creatinine 0.46 L (0.60-1.20) mg/dL Glucose 88 (70-105) mg/dL Calcium 8.4 L (8.6-10.3) mg/dL Calcium panel 09/26/17 Range/Units 04:33 Calcium 8.4 L (8.6-10.3) mg/dL Pituitary panel 09/26/17 Range/Units 04:33 Sodium 142 (136-145) mEq/L Potassium 3.7 (3.5-5.1) mEq/L Chloride 116 H (98-107) mEq/L Carbon Dioxide 20 L (23-29) mEq/L BUN 11 (8-23) mg/dL Creatinine 0.46 L (0.60-1.20) mg/dL Glucose 88 (70-105) mg/dL Calcium 8.4 L (8.6-10.3) mg/dL Adrenal panel 09/26/17 Range/Units 04:33 Sodium 142 (136-145) mEq/L Potassium 3.7 (3.5-5.1) mEq/L Chloride 116 H (98-107) mEq/L Carbon Dioxide 20 L (23-29) mEq/L BUN 11 (8-23) mg/dL Creatinine 0.46 L (0.60-1.20) mg/dL Glucose 88 (70-105) mg/dL Calcium 8.4 L (8.6-10.3) mg/dL Consult Discharge Plan - Plan Referrals: NONE,PCP [Non-Partnered Physician] -
[2017-09-26] MEDS ORDERED: cefTRIAXone 2,000 MG in Water for inj. (sterile) 20 ML 20 ML IVP SCH (08:00)
[2017-09-26] MEDS ORDERED: Acetaminophen 325 MG TABLET PO PRN (08:51)
[2017-09-26] MEDS: *HR* HYDROcodone/Acet 5/325 mg TABLET PO PRN (10:41)
[2017-09-26] MEDS: Lactobacillus 1 EACH CAP.SPRINK PO SCH ×2 (10:41→21:22)
[2017-09-26] MEDS: Isosorbide MONOnitrate (24 HR) 60 MG TAB.ER.24H PO SCH (10:42)
[2017-09-26] MEDS: Vancomycin Oral Soln 250 MG/5 ML UDC PO SCH ×4 (10:43→21:23)
[2017-09-26] MEDS: Famotidine 20 MG TABLET PO SCH ×2 (10:45→21:24)
--- NOTE | 2017-09-26 16:33 | Electrocardiograph Report ---
[address] [address] Test Date: 2017-09-25 Pat Name: Teresa Benjamin Department: 109 Room: 2A22 Gender: F Shift Foreman: : 1940 Requested By: Isaiah Douglas Order Number: [id number] Reading MD: Rona Salgado Measurements Intervals Kinzers Rate: 93 P: -61 WA: 96 QRS: 53 QRSD: 77 T: -35 QT: 357 QTc: 407 Interpretive Statements JUNCTIONAL RHYTHM NONSPECIFIC ST & T-WAVE ABNORMALITY Electronically Signed On 09-26-2017 16:31:34 EDT by Rona Salgado
[2017-09-26] MEDS: Nystatin Cream 15 GM TUBE TP SCH ×2 (16:58→21:24)
--- NOTE | 2017-09-26 17:26 | Internal Med Progress Note ---
Date of Encounter: 09/26/17 Time of Encounter: 11:00 - Assessment and plan (1) Septic shock Current Visit: Yes Status: Resolved Assessment and plan: Due to UTI Resolved (2) UTI (urinary tract infection) Current Visit: Yes Status: Acute Assessment and plan: Improving cont Rocephin Qualifiers: Urinary tract infection type: acute cystitis Hematuria presence: without hematuria Qualified Code(s): N30.00 - Acute cystitis without hematuria (3) Acute renal failure Current Visit: Yes Status: Resolved Assessment and plan: Resolved Qualifiers: Acute renal failure type: with acute tubular necrosis Qualified Code(s): N17.0 - Acute kidney failure with tubular necrosis (4) Nephrolithiasis Current Visit: Yes Status: Acute Assessment and plan: 13 mm non obstructing left renal pelvic stone Scheduled for surgery on 09/28 by Urology (5) C. difficile colitis Current Visit: Yes Status: Acute Assessment and plan: Improved cont PO Vancomycin (6) Dementia Current Visit: Yes Status: Acute Assessment and plan: We will continue patient's home medication Qualifiers: Dementia type: unspecified type Dementia behavioral disturbance: without behavioral disturbance Qualified Code(s): F03.90 - Unspecified dementia without behavioral disturbance (7) Bacteremia Current Visit: Yes Status: Acute Assessment and plan: With E. Coli due to UTI need 2 weeks abx for now cont IV abx (8) Leukocytosis Current Visit: Yes Status: Acute Assessment and plan: Due to sepsis trending down Qualifiers: Leukocytosis type: bandemia Qualified Code(s): D72.825 - Bandemia (9) Hypernatremia Current Visit: Yes Status: Acute Assessment and plan: Due to dehydration improved (10) DVT prophylaxis Current Visit: Yes Status: Acute Assessment and plan: Subcutaneous heparin - Time Spent With Patient Total time spent is greater than 50% in coordination of care (as documented) at patient's floor/unit and/or counseling patient: - Subjective Interval history: Patient is a 69-year-old female with past medical history significant for dementia, ischemic cardiomyopathy, heart valvular disease and hyperlipidemia who presents to the ER on 09/22/17 with confusion. In the ER, patient was found to have leukocytosis with a white count of 26.9 but was afebrile. Patient also found to have pyuria on urinalysis. Patient has been admitted to medical surgical floor for altered mental status suspected secondary to UTI. Later she developed spetic shock, bacteremic with E. Coli, OMI and C. Diff colitis. Pt was continued on abx Rocephin and PO Vancomycin. She was transferred to [facility] for further care. She is alert, awake and O x 3. Denied any CP / back pain. No dysuria.. had a regular BM y/d - Constitutional Vitals: Temp Pulse Resp BP Pulse Ox 98.5 F 77 15 126/74 91 09/26/17 15:54 09/26/17 15:54 09/26/17 15:54 09/26/17 15:54 09/26/17 15:54 General appearance: Present: cooperative, A&O X 3, pleasant, no acute distress, answers questions appropriately - Head Head exam: Present: atraumatic, normal inspection - Neck Neck exam general surgery: Present: supple - Respiratory Respiratory exam: Present: decreased breath sounds. Absent: rales, respiratory distress, rhonchi, wheezes - Cardiovascular Cardiovascular exam: Present: RRR, +S1, +S2. Absent: tachycardia - GI/Abdominal GI/Abdominal exam: Present: normal bowel sounds, soft. Absent: rebound, rigid, tenderness - Extremities Exam Extremities exam: Absent: calf tenderness, pedal edema, tenderness - Back Exam Back exam: Absent: CVA tenderness (L), CVA tenderness (R) - Neurological Exam Neurological exam: Present: alert - Psychiatric Psychiatric exam: Present: depressed - Skin Skin exam: Absent: rash Internal Medicine: Result - Labs CBC & Chem 7: 09/26/17 04:33 09/26/17 04:33 Labs: Short CBC 09/26/17 Range/Units 04:33 WBC 14.1 H (4.3-11.1) K/mcL Hgb 10.1 L (11.5-15.4) g/dL Hct 30.1 L (35.3-44.9) % Plt Count 68 L (140-400) K/mcL Neutrophils # 11.2 H (1.6-8.9) K/mcL BMP 09/26/17 04:33 Sodium 142 Potassium 3.7 Chloride 116 H Carbon Dioxide 20 L BUN 11 Creatinine 0.46 L Glucose 88 Calcium 8.4 L Consult Discharge Plan - Plan Referrals: NONE,PCP [Non-Partnered Physician] -
[2017-09-26] MEDS: cefTRIAXone 2,000 MG in Water for inj. (sterile) 20 ML 20 ML IVP SCH (18:13)
[2017-09-27] MEDS: *HR* Heparin 5,000 UNIT/ML VIAL SQ SCH ×2 (05:33→17:25)
[2017-09-27 05:58] LABS: Hematocrit 30.1 % (35.3-44.9); Mean Corpuscular Volume 93.2 fL (83.0-100.0); Red Blood Count 3.23 M/mcL (3.82-4.97); Red Cell Distribution Width 13.6 % (11.5-14.5)
[2017-09-27 05:59] LABS: Eosinophils # 0.4 K/mcL (0.0-0.6); Hemoglobin 10.1 g/dL (11.5-15.4); Immature Platelets 6.6 % (1.1-6.1); Mean Corpuscular HGB Conc 33.6 g/dL (31.6-35.5); Mean Corpuscular Hemoglobin 31.3 pg (28.0-33.3); Mean Platelet Volume 11.4 fL (9.4-12.4); Monocytes # 1.1 K/mcL (0.0-1.3)
[2017-09-27 06:15] LABS: Platelet Count 73 K/mcL (140-400)
[2017-09-27 06:20] LABS: Alanine Aminotransferase 16 Units/L (7-52); Albumin 2.4 g/dL (3.5-5.7); Alkaline Phosphatase 100 Units/L (34-104); Aspartate Amino Transferase 16 Units/L (13-39); BUN/Creatinine Ratio 24 (6-26); Bilirubin,Total 0.5 mg/dL (0.3-1.0); Blood Urea Nitrogen 12 mg/dL (8-23); Calcium 8.4 mg/dL (8.6-10.3); Carbon Dioxide 25 mEq/L (23-29); Chloride 109 mEq/L (98-107); Globulin 2.5 g/dL (2.4-3.5); Glucose 85 mg/dL (70-105); Magnesium 1.3 mg/dL (1.6-2.6); Osmolality,Calculated 287 (280-300); Potassium 3.5 mEq/L (3.5-5.1); Sodium 139 mEq/L (136-145); Total Protein 4.9 g/dL (6.4-8.9); eGFR For African Americans > 60 (> 60); eGFR For Non-African Americans > 60 (> 60)
[2017-09-27 07:03] LABS: Lymphocytes # 1.3 K/mcL (0.6-4.6); Neutrophils # 6.1 K/mcL (1.6-8.9); Platelet Estimate Decreased (Normal); Reactive Lymphocytes Present (Not Present); Toxic Granulation Present (Not Present)
[2017-09-27] MEDS: Famotidine 20 MG TABLET PO SCH ×2 (09:04→21:59)
[2017-09-27] MEDS: Lactobacillus 1 EACH CAP.SPRINK PO SCH ×2 (09:05→21:59)
[2017-09-27] MEDS: *HR* HYDROcodone/Acet 5/325 mg TABLET PO PRN (09:05)
[2017-09-27] MEDS: Isosorbide MONOnitrate (24 HR) 60 MG TAB.ER.24H PO SCH (09:05)
[2017-09-27] MEDS: cefTRIAXone 2,000 MG in Water for inj. (sterile) 20 ML 20 ML IVP SCH (09:06)
[2017-09-27] MEDS: Vancomycin Oral Soln 250 MG/5 ML UDC PO SCH ×4 (09:06→21:59)
--- NOTE | 2017-09-27 10:59 | Urology Progress Note ---
Date of Encounter: 09/27/17 Time of Encounter: 10:58 - Assessment and Plan (1) Bladder spasms Current Visit: Yes Status: Acute Assessment and plan: I lead patient is having bladder spasms secondary to bladder stone as well as balloon of the catheter within the bladder. We will plan on increasing the oxybutynin to 3 times a day. Progress Note Narrative: I was asked to see the patient is morning secondary to leakage around the catheter. Patient's catheter appears draining well this morning. Objective Initial Vital Signs Temp Pulse Resp BP Pulse Ox 99.0 F 72 22 137/97 94 09/22/17 13:23 09/22/17 13:23 09/22/17 13:23 09/22/17 13:23 09/22/17 13:23 - General physical appearance Present: well developed, well nourished - Respiratory Present: normal expansion, normal respiratory effort - Abdomen Present: soft - Genitourinary Present: normal external genitalia, other (Catheter with clear urine in tubing) - Labs 09/27/17 05:44 09/27/17 05:44 Diabetes panel 09/27/17 Range/Units 05:44 Sodium 139 (136-145) mEq/L Potassium 3.5 (3.5-5.1) mEq/L Chloride 109 H (98-107) mEq/L Carbon Dioxide 25 (23-29) mEq/L BUN 12 (8-23) mg/dL Creatinine 0.51 L (0.60-1.20) mg/dL Glucose 85 (70-105) mg/dL Calcium 8.4 L (8.6-10.3) mg/dL AST 16 (13-39) Units/L ALT 16 (7-52) Units/L Alkaline Phosphatase 100 (34-104) Units/L Albumin 2.4 L (3.5-5.7) g/dL Calcium panel 09/27/17 Range/Units 05:44 Calcium 8.4 L (8.6-10.3) mg/dL Albumin 2.4 L (3.5-5.7) g/dL Pituitary panel 09/27/17 Range/Units 05:44 Sodium 139 (136-145) mEq/L Potassium 3.5 (3.5-5.1) mEq/L Chloride 109 H (98-107) mEq/L Carbon Dioxide 25 (23-29) mEq/L BUN 12 (8-23) mg/dL Creatinine 0.51 L (0.60-1.20) mg/dL Glucose 85 (70-105) mg/dL Calcium 8.4 L (8.6-10.3) mg/dL Adrenal panel 09/27/17 Range/Units 05:44 Sodium 139 (136-145) mEq/L Potassium 3.5 (3.5-5.1) mEq/L Chloride 109 H (98-107) mEq/L Carbon Dioxide 25 (23-29) mEq/L BUN 12 (8-23) mg/dL Creatinine 0.51 L (0.60-1.20) mg/dL Glucose 85 (70-105) mg/dL Calcium 8.4 L (8.6-10.3) mg/dL Total Bilirubin 0.5 (0.3-1.0) mg/dL AST 16 (13-39) Units/L ALT 16 (7-52) Units/L Alkaline Phosphatase 100 (34-104) Units/L Albumin 2.4 L (3.5-5.7) g/dL Consult Discharge Plan - Plan Referrals: NONE,PCP [Non-Partnered Physician] -
--- NOTE | 2017-09-27 16:40 | Internal Med Progress Note ---
Date of Encounter: 09/27/17 Time of Encounter: 11:30 - Assessment and plan (1) Septic shock Current Visit: Yes Status: Resolved Assessment and plan: Due to UTI Resolved (2) UTI (urinary tract infection) Current Visit: Yes Status: Acute Assessment and plan: Improving cont Rocephin Qualifiers: Urinary tract infection type: acute cystitis Hematuria presence: without hematuria Qualified Code(s): N30.00 - Acute cystitis without hematuria (3) Acute renal failure Current Visit: Yes Status: Resolved Assessment and plan: Resolved Qualifiers: Acute renal failure type: with acute tubular necrosis Qualified Code(s): N17.0 - Acute kidney failure with tubular necrosis (4) Nephrolithiasis Current Visit: Yes Status: Acute Assessment and plan: 13 mm non obstructing left renal pelvic stone Scheduled for surgery on 09/28 by Urology NPO after mid night (5) C. difficile colitis Current Visit: Yes Status: Acute Assessment and plan: Improved cont PO Vancomycin (6) Dementia Current Visit: Yes Status: Acute Assessment and plan: We will continue patient's home medication Qualifiers: Dementia type: unspecified type Dementia behavioral disturbance: without behavioral disturbance Qualified Code(s): F03.90 - Unspecified dementia without behavioral disturbance (7) Bacteremia Current Visit: Yes Status: Acute Assessment and plan: With E. Coli due to UTI need 2 weeks abx for now cont IV abx (8) Leukocytosis Current Visit: Yes Status: Acute Assessment and plan: Due to sepsis trending down Qualifiers: Leukocytosis type: bandemia Qualified Code(s): D72.825 - Bandemia (9) Hypernatremia Current Visit: Yes Status: Acute Assessment and plan: Due to dehydration improved (10) DVT prophylaxis Current Visit: Yes Status: Acute Assessment and plan: Subcutaneous heparin - Time Spent With Patient Total time spent is greater than 50% in coordination of care (as documented) at patient's floor/unit and/or counseling patient: - Subjective Interval history: Patient is a 69-year-old female with past medical history significant for dementia, ischemic cardiomyopathy, heart valvular disease and hyperlipidemia who presents to the ER on 09/22/17 with confusion. In the ER, patient was found to have leukocytosis with a white count of 26.9 but was afebrile. Patient also found to have pyuria on urinalysis. Patient has been admitted to medical surgical floor for altered mental status suspected secondary to UTI. Later she developed spetic shock, bacteremic with E. Coli, OMI and C. Diff colitis. Pt was continued on abx Rocephin and PO Vancomycin. She was transferred to [facility] for further care. She is alert, awake and O x 3. Denied any CP / back pain. No dysuria.. had a regular BM. No events over night - Constitutional Vitals: Temp Pulse Resp BP Pulse Ox 98.3 F 79 16 111/72 96 09/27/17 16:17 09/27/17 16:17 09/27/17 16:17 09/27/17 16:17 09/27/17 16:17 General appearance: Present: cooperative, A&O X 3, pleasant, no acute distress, answers questions appropriately - Head Head exam: Present: atraumatic, normal inspection - Neck Neck exam general surgery: Present: supple - Respiratory Respiratory exam: Present: decreased breath sounds. Absent: rales, respiratory distress, rhonchi, wheezes - Cardiovascular Cardiovascular exam: Present: RRR, +S1, +S2. Absent: tachycardia - GI/Abdominal GI/Abdominal exam: Present: normal bowel sounds, soft. Absent: rebound, rigid, tenderness - Extremities Exam Extremities exam: Absent: calf tenderness, pedal edema, tenderness - Back Exam Back exam: Absent: CVA tenderness (L), CVA tenderness (R) - Neurological Exam Neurological exam: Present: alert, oriented X3 - Psychiatric Psychiatric exam: Present: normal affect, normal mood Internal Medicine: Result - Labs CBC & Chem 7: 09/27/17 05:44 09/27/17 05:44 Labs: Short CBC 09/27/17 Range/Units 05:44 WBC 9.3 (4.3-11.1) K/mcL Hgb 10.1 L (11.5-15.4) g/dL Hct 30.1 L (35.3-44.9) % Plt Count 73 L (140-400) K/mcL Neutrophils # 6.1 (1.6-8.9) K/mcL BMP 09/27/17 05:44 Sodium 139 Potassium 3.5 Chloride 109 H Carbon Dioxide 25 BUN 12 Creatinine 0.51 L Glucose 85 Calcium 8.4 L Liver Function 09/27/17 Range/Units 05:44 Total Bilirubin 0.5 (0.3-1.0) mg/dL AST 16 (13-39) Units/L ALT 16 (7-52) Units/L Alkaline Phosphatase 100 (34-104) Units/L Albumin 2.4 L (3.5-5.7) g/dL Consult Discharge Plan - Plan Referrals: NONE,PCP [Non-Partnered Physician] -
[2017-09-27] MEDS: Nystatin Cream 15 GM TUBE TP SCH ×2 (18:23→22:03)
[2017-09-28] MEDS: *HR* Heparin 5,000 UNIT/ML VIAL SQ SCH ×2 (05:32→16:28)
[2017-09-28] MEDS: Lactobacillus 1 EACH CAP.SPRINK PO SCH ×2 (09:11→21:11)
[2017-09-28] MEDS: Famotidine 20 MG TABLET PO SCH ×2 (09:11→21:11)
[2017-09-28] MEDS: Isosorbide MONOnitrate (24 HR) 60 MG TAB.ER.24H PO SCH (09:11)
[2017-09-28] MEDS: Vancomycin Oral Soln 250 MG/5 ML UDC PO SCH ×2 (09:12→16:05)
[2017-09-28] MEDS: cefTRIAXone 2,000 MG in Water for inj. (sterile) 20 ML 20 ML IVP SCH (09:13)
[2017-09-28] MEDS: Nystatin Cream 15 GM TUBE TP SCH ×2 (11:40→21:17)
--- NOTE | 2017-09-28 12:10 | Urology Progress Note ---
Date of Encounter: 09/28/17 Time of Encounter: 12:09 - Assessment and Plan (1) Bladder spasms Current Visit: Yes Status: Acute (2) Calculus of left kidney Current Visit: Yes Status: Acute Assessment and plan: 2 OR today for left ureteroscopic stone extraction (3) Bladder stone Current Visit: No Status: Acute Assessment and plan: Removal in operating room today. Progress Note Narrative: Patient seen this morning. Patient feeling okay. Still with some spasms. Objective Initial Vital Signs Temp Pulse Resp BP Pulse Ox 99.0 F 72 22 137/97 94 09/22/17 13:23 09/22/17 13:23 09/22/17 13:23 09/22/17 13:23 09/22/17 13:23 - General physical appearance Present: well developed, well nourished - Respiratory Present: normal expansion, normal respiratory effort - Abdomen Present: soft - Labs 09/27/17 05:44 09/27/17 05:44 - VTE Documentation of Mechanical Device: Intermittent pneumatic compression device Consult Discharge Plan - Plan Referrals: NONE,PCP [Non-Partnered Physician] -
--- NOTE | 2017-09-28 12:16 | Anesthesia Evaluation PreOp ---
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 SOLDERER History: Other (Dementia) Other Medical History: Denies Any Significant HX Anesthesia History: No Prior Anesthetic Complications : No Alcohol Use: none Drug use: none Medications and Allergies Amlodipine Besylate 10 mg PO DAILY 05/01/16 [History] Atorvastatin [Lipitor] 20 mg PO HS 05/01/16 [History] Clopidogrel Bisulfate [Plavix] 75 mg PO HS 05/01/16 [History] Donepezil HCl [Aricept] 10 mg PO HS 05/01/16 [History] Isosorbide MONOnitrate (24 HR) [Imdur] 60 mg PO DAILY 05/01/16 [History] Metoprolol Tartrate [Lopressor] 50 mg PO BID 05/01/16 [History] Potassium Chloride [Klor-Con 10] 20 meq PO DAILY 05/01/16 [History] Multivitamin/Iron/Folic Acid [Centrum Complete Multivit Tab] 1 tab PO DAILY [History] Memantine HCl [Namenda Xr] 28 mg PO DAILY 08/16/17 [History] Oxybutynin Chloride [Ditropan Xl] 5 mg PO DAILY 08/17/17 [History] Pantoprazole Sodium 40 mg PO DAILY PRN 08/17/17 [History] HYDROcodone/Acet 5/325 mg [[place] 5-325 mg] 1 tab PO TID PRN 09/01/17 [History] Lactobacillus Acidophilus [Acidophilus] 2 cap PO BID 09/01/17 [History] 3 Allergy/AdvReac Type Severity Reaction Status Date / Time codeine AdvReac Gastrointestinal Verified 09/01/17 09:56 Upset Penicillins AdvReac Gastrointestinal Verified 09/01/17 09:56 Upset Sulfa (Sulfonamide AdvReac Gastrointestinal Verified 09/01/17 09:56 Antibiotics) Upset, Rash sulfamethoxazole AdvReac Gastrointestinal Verified 09/01/17 09:56 [From Bactrim] Upset, Rash trimethoprim [From Bactrim] AdvReac Gastrointestinal Verified 09/01/17 09:56 Upset, Rash - Meds/Allergy Pre-op Review Medications Reviewed: Yes Allergies Reviewed: Yes Beta Blockers on Current Med List: Yes Anesthesia Results - Labs 09/27/17 05:44 09/27/17 05:44 Laboratory Tests 09/27/17 09/27/17 05:44 05:44 Hgb 10.1 L Hct 30.1 L Plt Count 73 L Sodium 139 Potassium 3.5 BUN 12 Creatinine 0.51 L - Imaging EKG: report reviewed (Junctional Rhytmn) Additional studies: Nuclear Stress Test negative for ischemia, EF 70% Anesthesia Exam Vital Signs/O2 Sat/Glucose, Most Current Temp Pulse Resp BP Pulse Ox 09/28/17 11:50 97.4 F L 70 14 146/76 94 Height: 5'2 Weight: 142 lbs NPO (# of Hours): MN Pain Scale: 0 - HEENT Pupil (Motor): Pupils equal, EOMI Oral Opening: Less than or equal to 3 - METAL SOLDERER LOC: Unable to assess METAL SOLDERER Motor: Normal RUE, Normal LUE, Normal RLE, Normal LLE, Normal Face METAL SOLDERER Sensory: Normal: RUE, LUE, RLE, LLE, Face - Cardiac Rhythm: Regular Murmur: None JVD: No Carotid Bruit: No - Pulmonary Breath Sounds: bilateral Clear Respiratory Effort: Symmetrical Anesthesia Assess/Plan ASA Score: 3 Modified [place] Scale for Level of Consciousness: Cooperative, oriented, and tranquil Anesthetic Plan: General Monitoring Plan: Standard Monitors Recovery Plan: PACU (Discussed GA, agrees to proceed)
[2017-09-28] MEDS ORDERED: Ondansetron 4 MG/2 ML VIAL ONE (13:14)
[2017-09-28] MEDS ORDERED: *HR* Propofol 200 MG/20 ML VIAL IVP ONE (13:14)
[2017-09-28] MEDS ORDERED: Lidocaine -MPF 2% 2 ML VIAL ONE (13:14)
[2017-09-28] MEDS ORDERED: *HR* Succinylcholine 200 MG/10 ML VIAL IVP ONE (13:14)
[2017-09-28] MEDS ORDERED: Dexamethasone 4 MG/ML VIAL ONE (13:14)
[2017-09-28] MEDS ORDERED: *HR* Midazolam HCl 2 MG/2 ML VIAL ONE (13:14)
[2017-09-28] MEDS ORDERED: *HR* FentaNYL (PF) 100 MCG/2 ML VIAL ONE (13:14)
[2017-09-28] MEDS ORDERED: Lidocaine -MPF 4% 5 ML AMPUL ONE (13:14)
--- NOTE | 2017-09-28 13:57 | Internal Med Progress Note ---
Date of Encounter: 09/28/17 Time of Encounter: 10:30 - Assessment and plan (1) Septic shock Current Visit: Yes Status: Resolved Assessment and plan: Due to UTI Resolved (2) Bacteremia Current Visit: Yes Status: Acute Assessment and plan: With E. Coli due to UTI need 2 weeks abx for now cont IV abx (3) UTI (urinary tract infection) Current Visit: Yes Status: Acute Assessment and plan: Improving cont Rocephin Qualifiers: Urinary tract infection type: acute cystitis Hematuria presence: without hematuria Qualified Code(s): N30.00 - Acute cystitis without hematuria (4) Acute renal failure Current Visit: Yes Status: Resolved Assessment and plan: Resolved Qualifiers: Acute renal failure type: with acute tubular necrosis Qualified Code(s): N17.0 - Acute kidney failure with tubular necrosis (5) Nephrolithiasis Current Visit: Yes Status: Acute Assessment and plan: 13 mm non obstructing left renal pelvic stone Scheduled for surgery later today by Urology (6) C. difficile colitis Current Visit: Yes Status: Acute Assessment and plan: Improved Since pt recurrent C. Diff inf will treat this time with 14 days of PO Vanco # 4 / (7) Dementia Current Visit: Yes Status: Acute Assessment and plan: continue patient's home medication Qualifiers: Dementia type: unspecified type Dementia behavioral disturbance: without behavioral disturbance Qualified Code(s): F03.90 - Unspecified dementia without behavioral disturbance (8) Leukocytosis Current Visit: Yes Status: Acute Assessment and plan: Due to sepsis trending down Qualifiers: Leukocytosis type: bandemia Qualified Code(s): D72.825 - Bandemia (9) Hypernatremia Current Visit: Yes Status: Acute Assessment and plan: Due to dehydration improved (10) DVT prophylaxis Current Visit: Yes Status: Acute Assessment and plan: Subcutaneous heparin - Time Spent With Patient Total time spent is greater than 50% in coordination of care (as documented) at patient's floor/unit and/or counseling patient: - Subjective Interval history: Patient is a 69-year-old female with past medical history significant for dementia, ischemic cardiomyopathy, heart valvular disease and hyperlipidemia who presents to the ER on 09/22/17 with confusion. In the ER, patient was found to have leukocytosis with a white count of 26.9 but was afebrile. Patient also found to have pyuria on urinalysis. Patient has been admitted to medical surgical floor for altered mental status suspected secondary to UTI. Later she developed spetic shock, bacteremic with E. Coli, OMI and C. Diff colitis. Pt was continued on abx Rocephin and PO Vancomycin. She was transferred to [facility] for further care. She is alert, awake and O x 3. Denied any CP / back pain. No dysuria.. had a regular BM. No events over night. - Constitutional Vitals: Temp Pulse Resp BP Pulse Ox 97.4 F L 70 14 146/76 94 09/28/17 11:50 09/28/17 11:50 09/28/17 11:50 09/28/17 11:50 09/28/17 11:50 General appearance: Present: cooperative, A&O X 3, pleasant, no acute distress, answers questions appropriately - Head Head exam: Present: atraumatic, normal inspection - Neck Neck exam general surgery: Present: supple - Respiratory Respiratory exam: Present: decreased breath sounds. Absent: rales, respiratory distress, rhonchi, wheezes - Cardiovascular Cardiovascular exam: Present: RRR, +S1, +S2. Absent: tachycardia - GI/Abdominal GI/Abdominal exam: Present: normal bowel sounds, soft. Absent: rebound, rigid, tenderness - Extremities Exam Extremities exam: Absent: calf tenderness, pedal edema, tenderness - Back Exam Back exam: Absent: CVA tenderness (L), CVA tenderness (R) - Neurological Exam Neurological exam: Present: alert, oriented X3 - Psychiatric Psychiatric exam: Present: normal affect, normal mood Internal Medicine: Result - Labs CBC & Chem 7: 09/27/17 05:44 09/27/17 05:44 - VTE Documentation of Mechanical Device: Intermittent pneumatic compression device Consult Discharge Plan - Plan Referrals: NONE,PCP [Non-Partnered Physician] -
[2017-09-28] MEDS ORDERED: *HR* Morphine 2 MG/ML SYRINGE IVP PRN (14:28)
[2017-09-28] MEDS ORDERED: *HR* Labetalol 100 MG/20 ML MDV IVP PRN (14:28)
[2017-09-28] MEDS ORDERED: Ondansetron 4 MG/2 ML VIAL IVP ONE (14:28)
[2017-09-28] MEDS ORDERED: 0.9 % Sodium Chloride 500 ML IVC SCH (14:30)
[2017-09-28] MEDS ORDERED: *HR* PHENYLEPHRINE 1,000 MCG/10 ML SYRINGE IVP ONE (14:53)
--- NOTE | 2017-09-28 15:52 | Anesthesia Evaluation Post Op ---
Date of Encounter: 09/28/17 Time of Encounter: 15:50 - Vital Signs Vital Signs: Vital Signs/O2 Sat/Glucose, Most Current Temp Pulse Resp BP Pulse Ox 09/28/17 15:44 98.1 F 71 16 147/71 97 09/28/17 15:34 71 16 151/85 97 09/28/17 15:24 71 16 136/90 97 09/28/17 15:14 98.8 F 80 12 135/69 93 - Lungs Lungs: Clear Ascult./Percussion - Airway Airway: Non-obstructed - Cardiovascular Regular Rate - Mental Status Mental Status: Alert & Oriented, Answers Appropriately - Pain Pain Scale: 0 - Nausea Vomiting Nausea Vomiting: Not Present - Hydration Hydration: Ice chips - Discharge PostOp Status: Transfer Patient to floor
[2017-09-28] MEDS ORDERED: *HR* HYDROcodone/Acet 5/325 mg TABLET PO PRN (15:56)
[2017-09-28] MEDS ORDERED: Acetaminophen 325 MG TABLET PO PRN (15:56)
[2017-09-28] MEDS ORDERED: Naloxone 0.4 MG/ML INJ IVP PRN (15:56)
[2017-09-28] MEDS ORDERED: Ondansetron 4 MG/2 ML VIAL IVP PRN (15:56)
[2017-09-28] MEDS: Vancomycin Oral Soln 125 MG/2.5 ML UDC PO SCH ×2 (16:26→21:12)
[2017-09-28] MEDS ORDERED: Vancomycin Oral Soln 125 MG/2.5 ML UDC PO SCH (17:00)
[2017-09-29] MEDS: *HR* Heparin 5,000 UNIT/ML VIAL SQ SCH (05:56)
[2017-09-29 06:33] LABS: Basophils % 0.2 %; Eosinophils % 0.1 %; Hematocrit 30.2 % (35.3-44.9); Hemoglobin 10.1 g/dL (11.5-15.4); Immature Granulocytes % 5.7 % (0-4); Lymphocytes # 1.2 K/mcL (0.6-4.6); Lymphocytes % 14.6 %; Mean Corpuscular HGB Conc 33.4 g/dL (31.6-35.5); Mean Corpuscular Hemoglobin 31.4 pg (28.0-33.3); Mean Corpuscular Volume 93.8 fL (83.0-100.0); Mean Platelet Volume 11.2 fL (9.4-12.4); Monocytes # 0.4 K/mcL (0.0-1.3); Platelet Count 141 K/mcL (140-400); Red Blood Count 3.22 M/mcL (3.82-4.97); Red Cell Distribution Width 13.2 % (11.5-14.5); Segmented Neutrophils % 74.4 %
[2017-09-29 06:47] LABS: BUN/Creatinine Ratio 28 (6-26); Blood Urea Nitrogen 15 mg/dL (8-23); Calcium 8.5 mg/dL (8.6-10.3); Carbon Dioxide 25 mEq/L (23-29); Chloride 112 mEq/L (98-107); Glucose 104 mg/dL (70-105); Osmolality,Calculated 295 (280-300); Potassium 4.3 mEq/L (3.5-5.1); Sodium 142 mEq/L (136-145); eGFR For African Americans > 60 (> 60); eGFR For Non-African Americans > 60 (> 60)
--- NOTE | 2017-09-29 07:19 | Urology Progress Note ---
Date of Encounter: 09/29/17 Time of Encounter: 07:18 - Assessment and Plan (1) UTI (urinary tract infection) Current Visit: Yes Status: Acute Assessment and plan: Doing well on ceftriaxone. Qualifiers: Urinary tract infection type: acute cystitis Hematuria presence: without hematuria Qualified Code(s): N30.00 - Acute cystitis without hematuria (2) Bladder stone Current Visit: No Status: Acute Assessment and plan: POD #1 s/p removal. Okay to d/c dwyer today. She can follow up with me in 2-4 weeks with a KUB. Progress Note Narrative: doing well after cystolitholapaxy and left ureteroscopy yesterday. Urine is clear today. No fevers overnight. Objective Initial Vital Signs Temp Pulse Resp BP Pulse Ox 99.0 F 72 22 137/97 94 09/22/17 13:23 09/22/17 13:23 09/22/17 13:23 09/22/17 13:23 09/22/17 13:23 - General physical appearance Present: well developed, well nourished, no distress - Genitourinary Urine Appearance: Present: Clear - Labs 09/27/17 05:44 09/29/17 04:00 Diabetes panel 09/29/17 Range/Units 04:00 Sodium 142 (136-145) mEq/L Potassium 4.3 (3.5-5.1) mEq/L Chloride 112 H (98-107) mEq/L Carbon Dioxide 25 (23-29) mEq/L BUN 15 (8-23) mg/dL Creatinine 0.54 L (0.60-1.20) mg/dL Glucose 104 (70-105) mg/dL Calcium 8.5 L (8.6-10.3) mg/dL Calcium panel 09/29/17 Range/Units 04:00 Calcium 8.5 L (8.6-10.3) mg/dL Pituitary panel 09/29/17 Range/Units 04:00 Sodium 142 (136-145) mEq/L Potassium 4.3 (3.5-5.1) mEq/L Chloride 112 H (98-107) mEq/L Carbon Dioxide 25 (23-29) mEq/L BUN 15 (8-23) mg/dL Creatinine 0.54 L (0.60-1.20) mg/dL Glucose 104 (70-105) mg/dL Calcium 8.5 L (8.6-10.3) mg/dL Adrenal panel 09/29/17 Range/Units 04:00 Sodium 142 (136-145) mEq/L Potassium 4.3 (3.5-5.1) mEq/L Chloride 112 H (98-107) mEq/L Carbon Dioxide 25 (23-29) mEq/L BUN 15 (8-23) mg/dL Creatinine 0.54 L (0.60-1.20) mg/dL Glucose 104 (70-105) mg/dL Calcium 8.5 L (8.6-10.3) mg/dL - VTE Documentation of Mechanical Device: Intermittent pneumatic compression device Consult Discharge Plan - Plan Referrals: NONE,PCP [Non-Partnered Physician] - (patient is from [facility])
--- NOTE | 2017-09-29 07:48 | Operative Note ---
Date of procedure: 09/28/17 Pre-op diagnosis: Bladder stone and left renal stone Post-op diagnosis: same Procedure: Cystolitholapaxy and left ureteroscopic stone extraction with laser and basket, left 4.8 x 26 cm ureteral stent placement Anesthesia: TONY Surgeon: Kyle Miner Was there an education assistant present: No Estimated blood loss (cc): 20 Specimen: none Condition: stable Disposition: PACU Procedure in Detail: Patient was prepped and draped in normal sterile fashion. Timeout procedure performed. I then inserted the onset nephroscope into the patient's urethra and advanced into the bladder. I then proceeded to use the lithoclast device to fragment and remove the 6 cm bladder stone. All large fragments were removed using graspers. The entire bladder was then fully surveyed with no further stones seen. The bladder was markedly edematous secondary to chronic indwelling bladder stone. I then was able to cannulate the left ureteral orifice using a sensor wire. This was then advanced into the left kidney using fluoroscopy. I then was able to place a 13 x 15 x 36 cm access sheath into the left renal pelvis. I then encountered the 2 cm stone in the renal pelvis. At this point I then using holmium laser to fragment the stone. The stone was very soft and easily fragmented. At this point I then used a basket device to remove all large stone fragments. The entire kidney was then fully surveyed with no further stones seen. I then back fed a wire back into the left kidney. I then placed a 4.8 x 26 and meter stent with good curl seen in the left kidney and in the bladder. A string was left and tied to the catheter which was then placed. Patient tolerated well and was taken to PACU in stable condition
[2017-09-29] MEDS: Lactobacillus 1 EACH CAP.SPRINK PO SCH (08:01)
[2017-09-29] MEDS: Famotidine 20 MG TABLET PO SCH (08:01)
[2017-09-29] MEDS: Vancomycin Oral Soln 125 MG/2.5 ML UDC PO SCH (08:05)
[2017-09-29 08:08] LABS: Platelet Estimate Normal (Normal)
[2017-09-29] MEDS: Nystatin Cream 15 GM TUBE TP SCH (08:13)
[2017-09-29 08:40] VITALS: BP 125/64
[2017-09-29] MEDS ORDERED: cefTRIAXone 2,000 MG in Water for inj. (sterile) 20 ML 20 ML IVP SCH (09:00)
[2017-09-29] MEDS ORDERED: Isosorbide MONOnitrate (24 HR) 60 MG TAB.ER.24H PO SCH (09:00)
--- NOTE | 2017-09-29 09:02 | Discharge Summary ---
- NOTES TO OUTPATIENT PROVIDER Notes to Outpatient Provider: f/u with PCP in one week. Cont PO Vancomycin for 9 more days. Cont PO Ceftin for 7 more days. Need to f/u with Urologist Dr. Miner in 1-2 weeks Date of Encounter: 09/29/17 Time of Encounter: 08:20 - Discharge Diagnosis (1) Septic shock Priority: Primary Status: Resolved (2) Bacteremia Priority: Primary Status: Acute (3) UTI (urinary tract infection) Priority: Primary Status: Acute Qualifiers: Urinary tract infection type: acute cystitis Hematuria presence: without hematuria Qualified Code(s): N30.00 - Acute cystitis without hematuria (4) Acute respiratory failure with hypoxia Priority: Secondary Status: Acute Assessment and Plan: due to physical deconditioning (5) Acute renal failure Priority: Primary Status: Resolved Qualifiers: Acute renal failure type: with acute tubular necrosis Qualified Code(s): N17.0 - Acute kidney failure with tubular necrosis (6) Nephrolithiasis Priority: Primary Status: Acute (7) C. difficile colitis Priority: Secondary Status: Acute (8) Dementia Priority: Secondary Status: Acute Qualifiers: Dementia type: unspecified type Dementia behavioral disturbance: without behavioral disturbance Qualified Code(s): F03.90 - Unspecified dementia without behavioral disturbance (9) Leukocytosis Priority: Secondary Status: Acute Qualifiers: Leukocytosis type: bandemia Qualified Code(s): D72.825 - Bandemia (10) Hypernatremia Priority: Secondary Status: Acute (11) DVT prophylaxis Priority: Secondary Status: Acute Hospital course: Patient is a 69-year-old female with past medical history significant for dementia, ischemic cardiomyopathy, heart valvular disease and hyperlipidemia who presents to the ER on 09/22/17 with confusion. In the ER, patient was found to have leukocytosis with a white count of 26.9 but was afebrile. Patient also found to have pyuria on urinalysis. Patient has been admitted to medical surgical floor for altered mental status suspected secondary to UTI. Later she developed spetic shock, bacteremic with E. Coli, OMI and C. Diff colitis. Pt was continued on abx Rocephin and PO Vancomycin. She was transferred to [facility] for further care. Pt has been doing well from last 3-4 days. Her WBC trended down to normal. She did go for Cystolitholapaxy and left ureteroscopic stone extraction with laser and basket, left 4.8 x 26 cm ureteral stent placement on 09/28/17. Pt remained afebrile and her dwyer got d/c d. She does have regular BMs now. So will d/c her to ECF in stable condition today. - Time Spent with Patient Total time spent providing and/or coordinating discharge services: Greater than 30 minutes (Spent 45 minutes on this patient's discharge summary due to complex medical problems and patient needed a lot of education regarding discharge instructions) - Discharge Medications Prescriptions: Cefuroxime PO [Ceftin] 500 mg PO Q12HR #14 tablet HYDROcodone/Acet 5/325 mg [[place] 5-325 mg] 1 tab PO TID PRN 5 Days #15 tablet PRN Reason: Mild To Moderate Pain Vancomycin Oral Soln [Firvanq] 125 mg PO QID 9 Days [facility] [place] Home Medications: Amlodipine Besylate 10 mg PO DAILY 05/01/16 [History] Atorvastatin [Lipitor] 20 mg PO HS 05/01/16 [History] Clopidogrel Bisulfate [Plavix] 75 mg PO HS 05/01/16 [History] Donepezil HCl [Aricept] 10 mg PO HS 05/01/16 [History] Isosorbide MONOnitrate (24 HR) [Imdur] 60 mg PO DAILY 05/01/16 [History] Metoprolol Tartrate [Lopressor] 50 mg PO BID 05/01/16 [History] Multivitamin/Iron/Folic Acid [Centrum Complete Multivit Tab] 1 tab PO DAILY [History] Memantine HCl [Namenda Xr] 28 mg PO DAILY 08/16/17 [History] Oxybutynin Chloride [Ditropan Xl] 5 mg PO DAILY 08/17/17 [History] Lactobacillus Acidophilus [Acidophilus] 2 cap PO BID 09/01/17 [History] Cefuroxime PO [Ceftin] 500 mg PO Q12HR #14 tablet 09/29/17 [Rx] Famotidine [Pepcid] 20 mg PO Q12H tablet 09/29/17 [Rx] HYDROcodone/Acet 5/325 mg [[place] 5-325 mg] 1 tab PO TID PRN 5 Days #15 tablet [Rx] Nystatin Cream [Mycostatin Cream] 1 appl TP BID tube 09/29/17 [Rx] Vancomycin Oral Soln [Firvanq] 125 mg PO QID 9 Days [facility] 09/29/17 [Rx] Allergies/Adverse Reactions: 3 Allergy/AdvReac Type Severity Reaction Status Date / Time codeine AdvReac Gastrointestinal Verified 09/01/17 09:56 Upset Penicillins AdvReac Gastrointestinal Verified 09/01/17 09:56 Upset Sulfa (Sulfonamide AdvReac Gastrointestinal Verified 09/01/17 09:56 Antibiotics) Upset, Rash sulfamethoxazole AdvReac Gastrointestinal Verified 09/01/17 09:56 [From Bactrim] Upset, Rash trimethoprim [From Bactrim] AdvReac Gastrointestinal Verified 09/01/17 09:56 Upset, Rash Date of admission: 09/23/17 17:05 Primary care physician: Ha Evans MD - Constitutional Vitals: Temp Pulse Resp BP Pulse Ox 97.4 F L 70 20 125/64 99 09/29/17 08:26 09/29/17 08:26 09/29/17 08:26 09/29/17 08:26 09/29/17 08:26 General appearance: Present: cooperative, A&O X 3, pleasant, no acute distress, answers questions appropriately - Head Head exam: Present: atraumatic, normal inspection - Neck Neck exam general surgery: Present: supple - Respiratory Respiratory exam: Present: decreased breath sounds. Absent: rales, respiratory distress, rhonchi, wheezes - Cardiovascular Cardiovascular exam: Present: RRR, +S1, +S2. Absent: tachycardia - GI/Abdominal GI/Abdominal exam: Present: normal bowel sounds, soft. Absent: rebound, rigid, tenderness - Extremities Exam Extremities exam: Absent: calf tenderness, pedal edema, tenderness - Back Exam Back exam: Absent: CVA tenderness (L), CVA tenderness (R) - Neurological Exam Neurological exam: Present: alert, oriented X3 - Psychiatric Psychiatric exam: Present: normal affect, normal mood - Patient Status Disposition: Transfer SNF Condition: Good Overall status at discharge: patient is back to baseline - Discharge Instructions Follow Up With: NONE,PCP [Non-Partnered Physician] - (patient is from [facility]) Kyle Miner MD [Partnered Physician] - Forms: ED Satisfaction Letter - Diet and Activity Activity: increase activity as tolerated, wear oxygen at all times (2.5 lit) Diet: low salt diet - VTE Documentation of Mechanical Device: Intermittent pneumatic compression device
--- NOTE | 2017-09-29 09:07 | Physician Discharge Referral ---
ExtendedCare Referral Info Transfer To: ECF Provider in Charge after Transfer: PCP Institutional Level of Care: Skilled - Diagnosis (1) Septic shock Status: Resolved (2) Bacteremia Status: Acute (3) UTI (urinary tract infection) Status: Acute (4) Acute respiratory failure with hypoxia Status: Acute (5) Acute renal failure Status: Resolved (6) Nephrolithiasis Status: Acute (7) C. difficile colitis Status: Acute (8) Dementia Status: Acute (9) Leukocytosis Status: Acute (10) Hypernatremia Status: Acute (11) DVT prophylaxis Status: Acute - Transfer Medications Prescriptions: Cefuroxime PO [Ceftin] 500 mg PO Q12HR #14 tablet HYDROcodone/Acet 5/325 mg [[place] 5-325 mg] 1 tab PO TID PRN 5 Days #15 tablet PRN Reason: Mild To Moderate Pain Vancomycin Oral Soln [Firvanq] 125 mg PO QID 9 Days [facility] [place] Medications: Amlodipine Besylate 10 mg PO DAILY 05/01/16 [History] Atorvastatin [Lipitor] 20 mg PO HS 05/01/16 [History] Clopidogrel Bisulfate [Plavix] 75 mg PO HS 05/01/16 [History] Donepezil HCl [Aricept] 10 mg PO HS 05/01/16 [History] Isosorbide MONOnitrate (24 HR) [Imdur] 60 mg PO DAILY 05/01/16 [History] Metoprolol Tartrate [Lopressor] 50 mg PO BID 05/01/16 [History] Multivitamin/Iron/Folic Acid [Centrum Complete Multivit Tab] 1 tab PO DAILY [History] Memantine HCl [Namenda Xr] 28 mg PO DAILY 08/16/17 [History] Oxybutynin Chloride [Ditropan Xl] 5 mg PO DAILY 08/17/17 [History] Lactobacillus Acidophilus [Acidophilus] 2 cap PO BID 09/01/17 [History] Cefuroxime PO [Ceftin] 500 mg PO Q12HR #14 tablet 09/29/17 [Rx] Famotidine [Pepcid] 20 mg PO Q12H tablet 09/29/17 [Rx] HYDROcodone/Acet 5/325 mg [[place] 5-325 mg] 1 tab PO TID PRN 5 Days #15 tablet [Rx] Nystatin Cream [Mycostatin Cream] 1 appl TP BID tube 09/29/17 [Rx] Vancomycin Oral Soln [Firvanq] 125 mg PO QID 9 Days [facility] 09/29/17 [Rx] Allergies/Adverse Reactions: 3 Allergy/AdvReac Type Severity Reaction Status Date / Time codeine AdvReac Gastrointestinal Verified 09/01/17 09:56 Upset Penicillins AdvReac Gastrointestinal Verified 09/01/17 09:56 Upset Sulfa (Sulfonamide AdvReac Gastrointestinal Verified 09/01/17 09:56 Antibiotics) Upset, Rash sulfamethoxazole AdvReac Gastrointestinal Verified 09/01/17 09:56 [From Bactrim] Upset, Rash trimethoprim [From Bactrim] AdvReac Gastrointestinal Verified 09/01/17 09:56 Upset, Rash - Respiratory Orders Smoking Cessation: Smoking cessation has been advised. For more information, call the [place] Tobacco Quit Line at 9-916-LELR-NOW. CERTIFICATION: I certify that the transfer of the above named patient to an Extended Care Facility is necessary for the continuing treatment of the diagnosis listed. The above information is true and accurate reflection of patient's current condition. Confidential - Redisclosure prohibited without a patient's written consent.
== END 2017-09-29 12:00 | DRG 853 ==
LOC: EMEROO 13:22 → 2ANU 13:22 → ICNU 09-23 00:19 → SUATTDRO 09-23 17:05 → 2ANU 09-25 17:36
PROVIDERS: ADMIT Nurse Practitioner Family; ATTEND Family Medicine

== ENCOUNTER 2020-05-11 08:43 | Inpatient (IN) ==
[~2020-05-11 08:43] MED LIST: *HR* FentaNYL (PF) 100 MCG/2 ML VIAL IVP ONE; *HR* Midazolam HCl 2 MG/2 ML VIAL IVP ONE; Acetaminophen IV 1,000 MG/100 ML BAG IVPB ONE
[2020-05-11] MEDS ORDERED: CeFAZolin Syr 2,000MG/20 ML 2,000 MG/20 ML SYRINGE IVPB ONE (09:15)
[2020-05-11] MEDS ORDERED: Ringers Solution, Lactated 1,000 ML IVC SCH (09:15)
[2020-05-11] MEDS ORDERED: *HR* Labetalol 20 MG/4 ML SYRINGE IVP PRN (09:25)
[2020-05-11] MEDS ORDERED: *HR* FentaNYL (PF) 100 MCG/2 ML VIAL IVP PRN (09:25)
[2020-05-11] MEDS ORDERED: Ondansetron 4 MG/2 ML VIAL IVP PRN (09:25)
[2020-05-11 10:02] LABS: Immature Granulocytes % 1.7 % (0-4)
[2020-05-11 10:04] LABS: Basophils # 0.1 K/mcL (0.0-0.2); Basophils % 1.1 %; Eosinophils # 0.2 K/mcL (0.0-0.6); Eosinophils % 2.7 %; Hematocrit 39.1 % (35.3-44.9); Hemoglobin 12.1 g/dL (11.5-15.4); Immature Platelets 4.2 % (1.1-6.1); Lymphocytes # 2.5 K/mcL (0.6-4.6); Mean Corpuscular HGB Conc 30.9 g/dL (31.6-35.5); Mean Corpuscular Hemoglobin 31.3 pg (28.0-33.3); Mean Corpuscular Volume 101.3 fL (83.0-100.0); Mean Platelet Volume 10.1 fL (9.4-12.4); Monocytes # 0.5 K/mcL (0.0-1.3); Neutrophils # 3.3 K/mcL (1.6-8.9); Red Blood Count 3.86 M/mcL (3.82-4.97); Segmented Neutrophils % 49.5 %; White Blood Count 6.6 K/mcL (4.3-11.1)
[2020-05-11] MEDS ORDERED: Famotidine 20 MG/2 ML VIAL IVP ONE (10:09)
[2020-05-11 10:10] LABS: INR 1.1; Prothrombin Time 12.6 Seconds (9.4-12.1)
[2020-05-11 10:30] LABS: Platelet Count 88 K/mcL (140-400)
[2020-05-11 10:32] LABS: Platelet Estimate Decreased (Normal)
[2020-05-11] MEDS ORDERED: 0.9 % Sodium Chloride 500 ML ONE (11:14)
[2020-05-11] MEDS ORDERED: *HR* Propofol 200 MG/20 ML VIAL IVP ONE (12:45)
[2020-05-11] MEDS ORDERED: Lidocaine -MPF 2% 2 ML VIAL ONE (12:45)
[2020-05-11] MEDS ORDERED: Dexamethasone 4 MG/ML VIAL ONE (12:45)
[2020-05-11] MEDS ORDERED: *HR* Midazolam HCl 2 MG/2 ML VIAL ONE (12:45)
[2020-05-11] MEDS ORDERED: Ondansetron 4 MG/2 ML VIAL ONE (12:45)
[2020-05-11] MEDS ORDERED: *HR* Succinylcholine 200 MG/10 ML VIAL IVP ONE (12:45)
[2020-05-11] MEDS ORDERED: *HR* FentaNYL (PF) 100 MCG/2 ML VIAL ONE ×2 (12:45→13:38)
[2020-05-11] MEDS ORDERED: Lidocaine -MPF 4% 5 ML AMPUL ONE (12:47)
[2020-05-11] MEDS ORDERED: *HR* Rocuronium Bromide 50 MG/5 ML VIAL ONE (12:49)
[2020-05-11] MEDS ORDERED: Isovue-300 50ML VIAL IVP ONE (14:05)
[2020-05-11] MEDS ORDERED: Ibuprofen 400 MG TABLET PO PRN (14:19)
[2020-05-11] MEDS ORDERED: Naloxone 0.4 MG/ML INJ IVP PRN (14:19)
[2020-05-11] MEDS ORDERED: 0.9 % Sodium Chloride 1,000 ML IVC ONE (17:34)
[2020-05-11 17:59] LABS: Hematocrit 33.7 % (35.3-44.9)
[2020-05-11] MEDS: 0.9 % Sodium Chloride 1,000 ML IVC SCH (18:06)
[2020-05-11] MEDS: Acetaminophen IV 1,000 MG/100 ML BAG IVPB SCH (20:11)
[2020-05-11 22:28] LABS: Mean Corpuscular HGB Conc 30.8 g/dL (31.6-35.5)
[2020-05-11 22:30] LABS: Hematocrit 26.6 % (35.3-44.9); Hemoglobin 8.2 g/dL (11.5-15.4); Immature Platelets 3.2 % (1.1-6.1); Mean Corpuscular Hemoglobin 31.7 pg (28.0-33.3); Mean Corpuscular Volume 102.7 fL (83.0-100.0); Mean Platelet Volume 10.7 fL (9.4-12.4); Red Blood Count 2.59 M/mcL (3.82-4.97); White Blood Count 8.8 K/mcL (4.3-11.1)
[2020-05-11 22:44] LABS: Alanine Aminotransferase 16 Units/L (7-52); Albumin 1.5 g/dL (3.5-5.7); Albumin/Globulin Ratio 0.7 (1.1-2.2); Alkaline Phosphatase 85 Units/L (34-104); Aspartate Amino Transferase 33 Units/L (13-39); BUN/Creatinine Ratio 22 (6-26); Bilirubin,Total 0.3 mg/dL (0.3-1.0); Blood Urea Nitrogen 15 mg/dL (8-23); Calcium 7.3 mg/dL (8.6-10.3); Carbon Dioxide 26 mEq/L (23-29); Chloride 111 mEq/L (98-107); Globulin 2.3 g/dL (2.4-3.5); Glucose 136 mg/dL (70-105); Osmolality,Calculated 295 (280-300); Potassium 3.9 mEq/L (3.5-5.1); Sodium 141 mEq/L (136-145); Total Protein 3.8 g/dL (6.4-8.9); eGFR For African Americans > 60 (> 60); eGFR For Non-African Americans > 60 (> 60)
[2020-05-11 23:08] LABS: Bilirubin,Urine Negative (Negative); Blood,Urine Large (Negative); Clarity,Urine Turbid (Clear); Glucose,Urine (UA) Normal (Normal); Ketones,Urine Negative (Negative); Leukocyte Esterase,Urine Negative (Negative); Nitrite,Urine Negative (Negative); PH,Urine 7.5 pH Units (5.0-8.0); Protein,Urine >=300 mg/dL (Neg-Trace); Specific Gravity,Urine 1.029 (1.010-1.025); Urobilinogen,Urine Normal (Normal)
[2020-05-11 23:10] LABS: Color,Urine Red (Yellow)
[2020-05-12] MEDS: Acetaminophen IV 1,000 MG/100 ML BAG IVPB SCH ×3 (01:59→22:33)
[2020-05-12 04:52] LABS: Basophils % 0.1 %; Hematocrit 23.8 % (35.3-44.9)
[2020-05-12 04:55] LABS: Eosinophils % 0.1 %; Hemoglobin 7.4 g/dL (11.5-15.4); Immature Granulocytes % 1.4 % (0-4); Lymphocytes # 0.7 K/mcL (0.6-4.6); Lymphocytes % 8.1 %; Mean Corpuscular HGB Conc 31.1 g/dL (31.6-35.5); Mean Corpuscular Hemoglobin 32.2 pg (28.0-33.3); Mean Corpuscular Volume 103.5 fL (83.0-100.0); Mean Platelet Volume 11.3 fL (9.4-12.4); Monocytes # 0.3 K/mcL (0.0-1.3); Monocytes % 3.1 %; Neutrophils # 7.2 K/mcL (1.6-8.9); Red Cell Distribution Width 17.2 % (11.5-14.5); Segmented Neutrophils % 87.2 %; White Blood Count 8.3 K/mcL (4.3-11.1)
[2020-05-12 05:06] LABS: Platelet Count 62 K/mcL (140-400)
[2020-05-12 05:13] LABS: BUN/Creatinine Ratio 20 (6-26); Blood Urea Nitrogen 17 mg/dL (8-23); Calcium 7.4 mg/dL (8.6-10.3); Carbon Dioxide 26 mEq/L (23-29); Chloride 113 mEq/L (98-107); Glucose 67 mg/dL (70-105); Osmolality,Calculated 296 (280-300); Potassium 4.1 mEq/L (3.5-5.1); Sodium 143 mEq/L (136-145); eGFR For African Americans > 60 (> 60); eGFR For Non-African Americans > 60 (> 60)
[2020-05-12 05:29] LABS: Platelet Estimate Decreased (Normal)
[2020-05-12] MEDS: 0.9 % Sodium Chloride 1,000 ML IVC SCH ×3 (06:22→22:33)
[2020-05-12] MEDS ORDERED: Levothyroxine 25 MCG TABLET PO SCH (06:30)
[2020-05-12] MEDS ORDERED: 0.9 % Sodium Chloride 1,000 ML IV ONE ×2 (06:39→07:56)
[2020-05-12] MEDS ORDERED: 0.9 % Sodium Chloride 250 ML ONE (06:53)
[2020-05-12] MEDS ORDERED: Naloxone 0.4 MG/ML INJ IVP PRN (07:56)
[2020-05-12] MEDS ORDERED: Piperacillin/Tazobactam 3.375 GM in 0.9 % Sodium Chloride Mini Bag 100 ML IVPB SCH ×2 (08:00)
[2020-05-12] MEDS: Famotidine 20 MG TABLET PO SCH ×2 (10:33→21:19)
[2020-05-12] MEDS: Divalproex (12 HR) 250 MG TABLET PO SCH ×3 (10:35→21:19)
[2020-05-12] MEDS ORDERED: Acetaminophen IV 1,000 MG/100 ML BAG IVPB SCH (12:00)
[2020-05-12] MEDS ORDERED: Levothyroxine Sodium 200 MCG VIAL IVP ONE (12:37)
[2020-05-12] MEDS ORDERED: Perflutren Lipid Microsphere 1.3 ML in 0.9 % Sodium Chloride 8.7 ML IVP PRN (12:47)
[2020-05-12] MEDS ORDERED: *HR* Dextrose 50 % in Water (Vial) 50 ML VIAL IVP PRN (13:06)
[2020-05-12] MEDS ORDERED: Dextrose Gel 15 GM/37.5 ML TUBE PO PRN ×2 (13:06)
[2020-05-12] MEDS ORDERED: D5% in Water 1,000 ML IVC PRN (13:06)
[2020-05-12 13:27] LABS: Triiodothyronine (T3) Total 0.17 ng/mL (0.87-1.78)
[2020-05-12] MEDS ORDERED: Liothyronine Sodium 10 MCG/ML IVP ONE (13:56)
[2020-05-12 14:13] LABS: Adenovirus Not Detected (Not Detect); Bordetella Pertussis Not Detected (Not Detect); Chlamydophila pneumoniae Not Detected (Not Detect); Coronavirus 229E Not Detected (Not Detect); Coronavirus HKU1 Not Detected (Not Detect); Coronavirus NL63 Not Detected (Not Detect); Coronavirus OC43 Not Detected (Not Detect); Human Metapneumovirus Not Detected (Not Detect); Human Rhinovirus/Enterovirus Not Detected (Not Detect); Influenza A Subtype 2009 H1 Not Detected (Not Detect); Influenza B Not Detected (Not Detect); Mycoplasma pneumoniae Not Detected (Not Detect); Parainfluenza Virus 1 Not Detected (Not Detect); Parainfluenza Virus 2 Not Detected (Not Detect); Parainfluenza Virus 3 Not Detected (Not Detect); Parainfluenza Virus 4 Not Detected (Not Detect); Respiratory Syncytial Virus Not Detected (Not Detect)
[2020-05-12 14:17] LABS: SARS-CoV-2 DETECTED (Not Detect)
[2020-05-12] MEDS: Piperacillin/Tazobactam 3.375 GM in 0.9 % Sodium Chloride Mini Bag 100 ML IVPB SCH ×2 (14:48→22:37)
[2020-05-12] MEDS: Hydrocortisone Sodium Succ 100 MG/2 ML VIAL IVP SCH ×2 (14:56→22:33)
[2020-05-12 16:31] LABS: INR 1.1; Prothrombin Time 13.2 Seconds (9.4-12.1)
[2020-05-12 16:34] LABS: Activated Partial Thrombo Time 28.7 Seconds (26.0-36.0)
[2020-05-12] MEDS ORDERED: Benzonatate 100 MG CAPSULE PO PRN (16:38)
[2020-05-12] MEDS ORDERED: Dexamethasone 4 MG/ML VIAL IVP SCH (16:45)
[2020-05-12 16:46] LABS: Basophils % 0.2 %; Eosinophils % 0.2 %; Hematocrit 37.6 % (35.3-44.9); Hemoglobin 12.3 g/dL (11.5-15.4); Immature Granulocytes % 1.5 % (0-4); Immature Platelets 3.7 % (1.1-6.1); Lymphocytes # 1.4 K/mcL (0.6-4.6); Lymphocytes % 15.9 %; Mean Corpuscular HGB Conc 32.7 g/dL (31.6-35.5); Mean Corpuscular Hemoglobin 31.8 pg (28.0-33.3); Mean Corpuscular Volume 97.2 fL (83.0-100.0); Mean Platelet Volume 11.4 fL (9.4-12.4); Monocytes # 0.5 K/mcL (0.0-1.3); Monocytes % 5.3 %; Neutrophils # 6.7 K/mcL (1.6-8.9); Platelet Count 62 K/mcL (140-400); Red Blood Count 3.87 M/mcL (3.82-4.97); Segmented Neutrophils % 76.9 %; White Blood Count 8.7 K/mcL (4.3-11.1)
[2020-05-12 17:20] LABS: Creatine Kinase 19 Units/L (30-223); Lactate Dehydrogenase 394 Units/L (140-271)
[2020-05-12] MEDS: Ipratropium 1 PUFF INHALER IH SCH (22:30)
[2020-05-12] MEDS: Liothyronine Sodium 10 MCG/ML IVP SCH (23:43)
[2020-05-13] MEDS: Ipratropium 1 PUFF INHALER IH SCH ×4 (03:33→21:52)
[2020-05-13] MEDS: Acetaminophen IV 1,000 MG/100 ML BAG IVPB SCH ×4 (04:31→19:56)
[2020-05-13 05:39] LABS: Basophils % 0.3 %
[2020-05-13 05:41] LABS: Hematocrit 36.8 % (35.3-44.9); Immature Granulocytes % 1.6 % (0-4); Immature Platelets 3.1 % (1.1-6.1); Lymphocytes # 0.9 K/mcL (0.6-4.6); Lymphocytes % 13.7 %; Mean Corpuscular HGB Conc 32.6 g/dL (31.6-35.5); Mean Corpuscular Hemoglobin 31.3 pg (28.0-33.3); Mean Corpuscular Volume 95.8 fL (83.0-100.0); Monocytes # 0.2 K/mcL (0.0-1.3); Neutrophils # 5.5 K/mcL (1.6-8.9); Red Blood Count 3.84 M/mcL (3.82-4.97); Red Cell Distribution Width 17.2 % (11.5-14.5); Segmented Neutrophils % 81.4 %; White Blood Count 6.7 K/mcL (4.3-11.1)
[2020-05-13] MEDS: Piperacillin/Tazobactam 3.375 GM in 0.9 % Sodium Chloride Mini Bag 100 ML IVPB SCH ×3 (05:52→21:07)
[2020-05-13] MEDS: Liothyronine Sodium 10 MCG/ML IVP SCH (05:52)
[2020-05-13] MEDS: Hydrocortisone Sodium Succ 100 MG/2 ML VIAL IVP SCH ×3 (05:53→19:56)
[2020-05-13 05:57] LABS: Anisocytosis 1+ (Not Present); Large Platelets Present (Not Present); Platelet Count 56 K/mcL (140-400); Platelet Estimate Decreased (Normal)
[2020-05-13 06:10] LABS: Alanine Aminotransferase 7 Units/L (7-52); Albumin 1.7 g/dL (3.5-5.7); Albumin/Globulin Ratio 0.7 (1.1-2.2); Alkaline Phosphatase 81 Units/L (34-104); Aspartate Amino Transferase 33 Units/L (13-39); BUN/Creatinine Ratio 19 (6-26); Bilirubin,Total 0.4 mg/dL (0.3-1.0); Blood Urea Nitrogen 17 mg/dL (8-23); Calcium 7.5 mg/dL (8.6-10.3); Carbon Dioxide 22 mEq/L (23-29); Chloride 114 mEq/L (98-107); Globulin 2.4 g/dL (2.4-3.5); Glucose 84 mg/dL (70-105); Lactate Dehydrogenase 392 Units/L (140-271); Magnesium 1.3 mg/dL (1.6-2.6); Osmolality,Calculated 297 (280-300); Phosphorous 3.8 mg/dL (2.7-4.5); Potassium 3.9 mEq/L (3.5-5.1); Sodium 143 mEq/L (136-145); Total Protein 4.1 g/dL (6.4-8.9); eGFR For African Americans > 60 (> 60); eGFR For Non-African Americans > 60 (> 60)
[2020-05-13 06:18] LABS: Ferritin 568 ng/mL (10-120)
[2020-05-13] MEDS ORDERED: Levothyroxine 25 MCG TABLET PO SCH (06:30)
[2020-05-13] MEDS: Levothyroxine Sodium 100 MCG VIAL IVP SCH (09:00)
[2020-05-13 10:05] LABS: C-Reactive Protein 101 mg/L (Less than 10)
[2020-05-13] MEDS: Divalproex (12 HR) 250 MG TABLET PO SCH (11:44)
[2020-05-13] MEDS: Famotidine 20 MG TABLET PO SCH (11:44)
[2020-05-13] MEDS: *HR* Metoprolol 5 MG/5 ML VIAL IVP SCH ×2 (14:22→19:31)
[2020-05-13] MEDS: Valproic Acid INJ 250 MG in 0.9 % Sodium Chloride 100 ML IVPB SCH (17:05)
[2020-05-14] MEDS: Valproic Acid INJ 250 MG in 0.9 % Sodium Chloride 100 ML IVPB SCH ×4 (01:06→23:02)
[2020-05-14] MEDS: Acetaminophen IV 1,000 MG/100 ML BAG IVPB SCH ×3 (02:12→14:48)
[2020-05-14] MEDS: Ipratropium 1 PUFF INHALER IH SCH ×4 (03:43→21:45)
[2020-05-14] MEDS: *HR* Metoprolol 5 MG/5 ML VIAL IVP SCH ×6 (03:43→23:02)
[2020-05-14] MEDS: Piperacillin/Tazobactam 3.375 GM in 0.9 % Sodium Chloride Mini Bag 100 ML IVPB SCH ×3 (04:43→22:01)
[2020-05-14] MEDS: Hydrocortisone Sodium Succ 100 MG/2 ML VIAL IVP SCH ×3 (04:43→19:56)
[2020-05-14 07:34] LABS: Immature Granulocytes % 1.8 % (0-4); Mean Corpuscular HGB Conc 32.1 g/dL (31.6-35.5); Segmented Neutrophils % 80.3 %
[2020-05-14 07:36] LABS: Basophils % 0.5 %; Hematocrit 37.4 % (35.3-44.9); Immature Platelets 3.6 % (1.1-6.1); Lymphocytes # 1.1 K/mcL (0.6-4.6); Lymphocytes % 14.8 %; Mean Corpuscular Hemoglobin 31.1 pg (28.0-33.3); Mean Corpuscular Volume 96.9 fL (83.0-100.0); Mean Platelet Volume 11.2 fL (9.4-12.4); Monocytes # 0.2 K/mcL (0.0-1.3); Monocytes % 2.6 %; Neutrophils # 6.1 K/mcL (1.6-8.9); Red Blood Count 3.86 M/mcL (3.82-4.97); White Blood Count 7.6 K/mcL (4.3-11.1)
[2020-05-14 07:45] LABS: Platelet Count 73 K/mcL (140-400)
[2020-05-14 08:32] LABS: Alanine Aminotransferase 5 Units/L (7-52); Albumin 1.7 g/dL (3.5-5.7); Albumin/Globulin Ratio 0.7 (1.1-2.2); Alkaline Phosphatase 83 Units/L (34-104); Aspartate Amino Transferase 24 Units/L (13-39); BUN/Creatinine Ratio 22 (6-26); Bilirubin,Total 0.3 mg/dL (0.3-1.0); Blood Urea Nitrogen 21 mg/dL (8-23); Calcium 7.7 mg/dL (8.6-10.3); Carbon Dioxide 20 mEq/L (23-29); Chloride 114 mEq/L (98-107); Ferritin 458 ng/mL (10-120); Globulin 2.6 g/dL (2.4-3.5); Glucose 90 mg/dL (70-105); Lactate Dehydrogenase 358 Units/L (140-271); Magnesium 2.6 mg/dL (1.6-2.6); Osmolality,Calculated 299 (280-300); Phosphorous 3.8 mg/dL (2.7-4.5); Potassium 3.3 mEq/L (3.5-5.1); Sodium 143 mEq/L (136-145); Total Protein 4.3 g/dL (6.4-8.9); eGFR For African Americans > 60 (> 60); eGFR For Non-African Americans 55 (> 60)
[2020-05-14] MEDS: Famotidine 20 MG/2 ML VIAL IVP SCH (09:04)
[2020-05-14] MEDS: Levothyroxine Sodium 100 MCG VIAL IVP SCH (09:05)
[2020-05-14 10:34] LABS: Triiodothyronine (T3) Free 1.67 pg/mL (2.50-3.90)
[2020-05-14 10:43] LABS: Calculi Mass 400 mg
[2020-05-14] MEDS: Liothyronine Sodium 10 MCG/ML IVP SCH ×2 (13:05→19:56)
[2020-05-14 13:59] LABS: C-Reactive Protein 74 mg/L (Less than 10)
[2020-05-14] MEDS ORDERED: Acetaminophen IV 1,000 MG/100 ML BAG IVPB PRN (15:07)
[2020-05-14] MEDS ORDERED: Potassium Chloride 40 MEQ, Lidocaine 1% 2 ML in 0.9 % Sodium Chloride 500 ML IVPB ONE (15:13)
[2020-05-15] MEDS: Liothyronine Sodium 10 MCG/ML IVP SCH ×3 (03:18→20:03)
[2020-05-15] MEDS: Ipratropium 1 PUFF INHALER IH SCH ×4 (03:49→22:15)
[2020-05-15] MEDS: Hydrocortisone Sodium Succ 100 MG/2 ML VIAL IVP SCH ×3 (04:04→20:01)
[2020-05-15] MEDS: *HR* Metoprolol 5 MG/5 ML VIAL IVP SCH ×4 (05:05→23:26)
[2020-05-15] MEDS: Piperacillin/Tazobactam 3.375 GM in 0.9 % Sodium Chloride Mini Bag 100 ML IVPB SCH ×3 (05:07→23:27)
[2020-05-15 06:15] LABS: Hematocrit 39.4 % (35.3-44.9); Red Cell Distribution Width 17.1 % (11.5-14.5)
[2020-05-15 06:17] LABS: Basophils % 0.2 %; Hemoglobin 12.4 g/dL (11.5-15.4); Immature Granulocytes % 1.2 % (0-4); Immature Platelets 3.2 % (1.1-6.1); Lymphocytes # 1.3 K/mcL (0.6-4.6); Lymphocytes % 15.4 %; Mean Corpuscular HGB Conc 31.5 g/dL (31.6-35.5); Mean Corpuscular Hemoglobin 30.8 pg (28.0-33.3); Mean Corpuscular Volume 97.8 fL (83.0-100.0); Mean Platelet Volume 10.6 fL (9.4-12.4); Monocytes # 0.2 K/mcL (0.0-1.3); Neutrophils # 6.6 K/mcL (1.6-8.9); Nucleated Red Blood Cells 0.2 /100 WBC (0); Red Blood Count 4.03 M/mcL (3.82-4.97); Segmented Neutrophils % 81.2 %; White Blood Count 8.1 K/mcL (4.3-11.1)
[2020-05-15 06:18] LABS: Platelet Count 81 K/mcL (140-400)
[2020-05-15 06:40] LABS: Alanine Aminotransferase 5 Units/L (7-52); Albumin 1.7 g/dL (3.5-5.7); Albumin/Globulin Ratio 0.7 (1.1-2.2); Alkaline Phosphatase 87 Units/L (34-104); Aspartate Amino Transferase 19 Units/L (13-39); BUN/Creatinine Ratio 25 (6-26); Bilirubin,Total 0.3 mg/dL (0.3-1.0); Blood Urea Nitrogen 26 mg/dL (8-23); Calcium 7.9 mg/dL (8.6-10.3); Carbon Dioxide 18 mEq/L (23-29); Chloride 116 mEq/L (98-107); Globulin 2.5 g/dL (2.4-3.5); Glucose 92 mg/dL (70-105); Lactate Dehydrogenase 359 Units/L (140-271); Magnesium 2.3 mg/dL (1.6-2.6); Osmolality,Calculated 300 (280-300); Phosphorous 3.6 mg/dL (2.7-4.5); Potassium 3.7 mEq/L (3.5-5.1); Sodium 143 mEq/L (136-145); Total Protein 4.2 g/dL (6.4-8.9); eGFR For African Americans > 60 (> 60); eGFR For Non-African Americans 52 (> 60)
[2020-05-15 06:50] LABS: Ferritin 405 ng/mL (10-120)
[2020-05-15 08:21] LABS: C-Reactive Protein 46 mg/L (Less than 10)
[2020-05-15] MEDS: Valproic Acid INJ 250 MG in 0.9 % Sodium Chloride 100 ML IVPB SCH ×3 (09:47→23:30)
[2020-05-15] MEDS: Famotidine 20 MG/2 ML VIAL IVP SCH (09:48)
[2020-05-15] MEDS: Levothyroxine Sodium 100 MCG VIAL IVP SCH (09:48)
[2020-05-15] MEDS ORDERED: Albumin 25% 25gram/100mL 25 GM/100 ML IV.SOLN IVPB ONE (11:25)
[2020-05-15] MEDS ORDERED: Furosemide 20 MG/2 ML VIAL IVP ONE (11:25)
[2020-05-16 02:49] LABS: Basophils % 0.4 %; Mean Corpuscular Volume 97.2 fL (83.0-100.0); Red Cell Distribution Width 17.1 % (11.5-14.5)
[2020-05-16 02:50] LABS: VBG Ionized Calcium 1.23 mmol/L (1.15-1.35)
[2020-05-16 02:51] LABS: Hematocrit 35.3 % (35.3-44.9); Hemoglobin 11.3 g/dL (11.5-15.4); Immature Granulocytes % 1.4 % (0-4); Immature Platelets 2.7 % (1.1-6.1); Lymphocytes # 0.7 K/mcL (0.6-4.6); Mean Corpuscular Hemoglobin 31.1 pg (28.0-33.3); Mean Platelet Volume 10.6 fL (9.4-12.4); Monocytes # 0.2 K/mcL (0.0-1.3); Monocytes % 3.2 %; Neutrophils # 4.6 K/mcL (1.6-8.9); Red Blood Count 3.63 M/mcL (3.82-4.97); White Blood Count 5.6 K/mcL (4.3-11.1)
[2020-05-16 02:52] LABS: Platelet Count 67 K/mcL (140-400)
[2020-05-16 03:02] LABS: BUN/Creatinine Ratio 29 (6-26); Blood Urea Nitrogen 27 mg/dL (8-23); Carbon Dioxide 20 mEq/L (23-29); Chloride 115 mEq/L (98-107); Glucose 93 mg/dL (70-105); Osmolality,Calculated 307 (280-300); Phosphorous 3.5 mg/dL (2.7-4.5); Potassium 2.8 mEq/L (3.5-5.1); Sodium 146 mEq/L (136-145); eGFR For African Americans > 60 (> 60); eGFR For Non-African Americans 57 (> 60)
[2020-05-16] MEDS: Ipratropium 1 PUFF INHALER IH SCH ×4 (04:00→22:49)
[2020-05-16] MEDS ORDERED: Potassium Chloride 40 MEQ, Lidocaine 1% 2 ML in 0.9 % Sodium Chloride 500 ML IVPB ONE (04:16)
[2020-05-16] MEDS: Hydrocortisone Sodium Succ 100 MG/2 ML VIAL IVP SCH ×3 (04:30→21:04)
[2020-05-16] MEDS: Liothyronine Sodium 10 MCG/ML IVP SCH ×3 (04:32→22:07)
[2020-05-16] MEDS: *HR* Metoprolol 5 MG/5 ML VIAL IVP SCH ×3 (05:17→17:44)
[2020-05-16] MEDS: Levothyroxine Sodium 100 MCG VIAL IVP SCH (09:29)
[2020-05-16] MEDS: Piperacillin/Tazobactam 3.375 GM in 0.9 % Sodium Chloride Mini Bag 100 ML IVPB SCH ×2 (09:30→16:18)
[2020-05-16] MEDS: Famotidine 20 MG/2 ML VIAL IVP SCH (09:31)
[2020-05-16] MEDS: Valproic Acid INJ 250 MG in 0.9 % Sodium Chloride 100 ML IVPB SCH ×2 (09:32→16:18)
[2020-05-16 11:25] LABS: BUN/Creatinine Ratio 32 (6-26); Blood Urea Nitrogen 26 mg/dL (8-23); Calcium 8.1 mg/dL (8.6-10.3); Carbon Dioxide 20 mEq/L (23-29); Chloride 119 mEq/L (98-107); Glucose 83 mg/dL (70-105); Osmolality,Calculated 308 (280-300); Potassium 4.6 mEq/L (3.5-5.1); Sodium 147 mEq/L (136-145); Triiodothyronine (T3) Free 1.88 pg/mL (2.50-3.90); eGFR For African Americans > 60 (> 60); eGFR For Non-African Americans > 60 (> 60)
[2020-05-16] MEDS ORDERED: Furosemide 40 MG/4 ML VIAL IVP ONE (11:53)
[2020-05-16] MEDS ORDERED: Albumin 25% 25gram/100mL 25 GM/100 ML IV.SOLN IVPB ONE (11:53)
[2020-05-17] MEDS: *HR* Metoprolol 5 MG/5 ML VIAL IVP SCH ×4 (00:34→17:48)
[2020-05-17] MEDS: Piperacillin/Tazobactam 3.375 GM in 0.9 % Sodium Chloride Mini Bag 100 ML IVPB SCH ×4 (01:15→17:46)
[2020-05-17] MEDS: Ipratropium 1 PUFF INHALER IH SCH ×4 (03:57→21:09)
[2020-05-17] MEDS: Liothyronine Sodium 10 MCG/ML IVP SCH ×3 (04:26→20:04)
[2020-05-17] MEDS: Hydrocortisone Sodium Succ 100 MG/2 ML VIAL IVP SCH ×3 (04:30→20:11)
[2020-05-17 05:11] LABS: Nucleated Red Blood Cells 0.7 /100 WBC (0)
[2020-05-17 05:13] LABS: Basophils % 0.7 %; Hematocrit 33.9 % (35.3-44.9); Hemoglobin 11.1 g/dL (11.5-15.4); Immature Granulocytes % 4.5 % (0-4); Immature Platelets 3.7 % (1.1-6.1); Lymphocytes # 0.5 K/mcL (0.6-4.6); Lymphocytes % 11.9 %; Mean Corpuscular HGB Conc 32.7 g/dL (31.6-35.5); Mean Corpuscular Hemoglobin 31.6 pg (28.0-33.3); Mean Corpuscular Volume 96.6 fL (83.0-100.0); Mean Platelet Volume 11.1 fL (9.4-12.4); Monocytes # 0.2 K/mcL (0.0-1.3); Neutrophils # 3.2 K/mcL (1.6-8.9); Red Blood Count 3.51 M/mcL (3.82-4.97); Red Cell Distribution Width 17.2 % (11.5-14.5); Segmented Neutrophils % 78.9 %
[2020-05-17 05:14] LABS: Platelet Count 58 K/mcL (140-400)
[2020-05-17] MEDS: Famotidine 20 MG/2 ML VIAL IVP SCH (08:08)
[2020-05-17] MEDS: Levothyroxine Sodium 100 MCG VIAL IVP SCH (08:10)
[2020-05-17] MEDS: Valproic Acid INJ 250 MG in 0.9 % Sodium Chloride 100 ML IVPB SCH ×4 (08:12→23:54)
[2020-05-17 08:14] LABS: BUN/Creatinine Ratio 31 (6-26); Blood Urea Nitrogen 25 mg/dL (8-23); Calcium 8.3 mg/dL (8.6-10.3); Carbon Dioxide 23 mEq/L (23-29); Chloride 117 mEq/L (98-107); Glucose 94 mg/dL (70-105); Magnesium 1.5 mg/dL (1.6-2.6); Osmolality,Calculated 316 (280-300); Phosphorous 2.4 mg/dL (2.7-4.5); Potassium 2.6 mEq/L (3.5-5.1); Sodium 151 mEq/L (136-145); eGFR For African Americans > 60 (> 60); eGFR For Non-African Americans > 60 (> 60)
[2020-05-17] MEDS ORDERED: Potassium Chloride Elixir 20 MEQ/15 ML UDC PO ONE (08:22)
[2020-05-17] MEDS ORDERED: Potassium Phosphate 44 MEQ in 0.9 % Sodium Chloride 250 ML IVPB ONE (08:22)
[2020-05-18] MEDS: Piperacillin/Tazobactam 3.375 GM in 0.9 % Sodium Chloride Mini Bag 100 ML IVPB SCH ×3 (01:00→16:58)
[2020-05-18] MEDS: *HR* Metoprolol 5 MG/5 ML VIAL IVP SCH ×4 (01:30→16:58)
[2020-05-18] MEDS: Ipratropium 1 PUFF INHALER IH SCH ×4 (04:00→22:34)
[2020-05-18] MEDS: Liothyronine Sodium 10 MCG/ML IVP SCH ×2 (04:41→14:28)
[2020-05-18] MEDS: Hydrocortisone Sodium Succ 100 MG/2 ML VIAL IVP SCH ×3 (04:45→22:46)
[2020-05-18 05:21] LABS: Hemoglobin 11.8 g/dL (11.5-15.4)
[2020-05-18 05:23] LABS: Hematocrit 35.5 % (35.3-44.9); Immature Platelets 5.2 % (1.1-6.1); Mean Corpuscular HGB Conc 33.2 g/dL (31.6-35.5); Mean Corpuscular Hemoglobin 31.7 pg (28.0-33.3); Mean Corpuscular Volume 95.4 fL (83.0-100.0); Mean Platelet Volume 11.8 fL (9.4-12.4); Red Blood Count 3.72 M/mcL (3.82-4.97); White Blood Count 3.9 K/mcL (4.3-11.1)
[2020-05-18 05:42] LABS: BUN/Creatinine Ratio 35 (6-26); Blood Urea Nitrogen 23 mg/dL (8-23); Calcium 8.1 mg/dL (8.6-10.3); Carbon Dioxide 20 mEq/L (23-29); Chloride 117 mEq/L (98-107); Glucose 135 mg/dL (70-105); Magnesium 2.1 mg/dL (1.6-2.6); Osmolality,Calculated 320 (280-300); Potassium 2.6 mEq/L (3.5-5.1); Sodium 152 mEq/L (136-145); eGFR For African Americans > 60 (> 60); eGFR For Non-African Americans > 60 (> 60)
[2020-05-18] MEDS ORDERED: Potassium Chloride 40 MEQ, Lidocaine 1% 2 ML in 0.9 % Sodium Chloride 500 ML IVPB ONE (08:04)
[2020-05-18] MEDS: Levothyroxine Sodium 100 MCG VIAL IVP SCH (09:08)
[2020-05-18] MEDS: Famotidine 20 MG/2 ML VIAL IVP SCH (09:10)
[2020-05-18] MEDS: Valproic Acid INJ 250 MG in 0.9 % Sodium Chloride 100 ML IVPB SCH ×2 (09:11→14:29)
[2020-05-18] MEDS: Potassium Chloride Elixir 20 MEQ/15 ML UDC PO SCH ×2 (09:11→22:46)
[2020-05-18 16:04] LABS: Triiodothyronine (T3) Free 4.34 pg/mL (2.50-3.90)
[2020-05-19] MEDS: Valproic Acid INJ 250 MG in 0.9 % Sodium Chloride 100 ML IVPB SCH ×3 (00:24→17:48)
[2020-05-19] MEDS: *HR* Metoprolol 5 MG/5 ML VIAL IVP SCH ×3 (01:18→11:07)
[2020-05-19] MEDS: Piperacillin/Tazobactam 3.375 GM in 0.9 % Sodium Chloride Mini Bag 100 ML IVPB SCH ×2 (01:18→11:07)
[2020-05-19] MEDS: Ipratropium 1 PUFF INHALER IH SCH ×4 (03:30→22:52)
[2020-05-19 05:07] LABS: Red Blood Count 3.81 M/mcL (3.82-4.97)
[2020-05-19 05:09] LABS: Hematocrit 36.7 % (35.3-44.9); Hemoglobin 11.8 g/dL (11.5-15.4); Immature Platelets 4.8 % (1.1-6.1); Mean Corpuscular HGB Conc 32.2 g/dL (31.6-35.5); Mean Corpuscular Volume 96.3 fL (83.0-100.0); Mean Platelet Volume 11.6 fL (9.4-12.4); Monocytes # 0.2 K/mcL (0.0-1.3); Nucleated Red Blood Cells 1.5 /100 WBC (0); Red Cell Distribution Width 17.4 % (11.5-14.5); White Blood Count 6.2 K/mcL (4.3-11.1)
[2020-05-19 05:09] LABS: VBG Ionized Calcium 1.23 mmol/L (1.15-1.35)
[2020-05-19 05:37] LABS: BUN/Creatinine Ratio 45 (6-26); Blood Urea Nitrogen 26 mg/dL (8-23); Calcium 8.4 mg/dL (8.6-10.3); Carbon Dioxide 25 mEq/L (23-29); Chloride 119 mEq/L (98-107); Glucose 116 mg/dL (70-105); Magnesium 1.9 mg/dL (1.6-2.6); Osmolality,Calculated 326 (280-300); Phosphorous 1.8 mg/dL (2.7-4.5); Potassium 2.9 mEq/L (3.5-5.1); Sodium 155 mEq/L (136-145); eGFR For African Americans > 60 (> 60); eGFR For Non-African Americans > 60 (> 60)
[2020-05-19] MEDS: Hydrocortisone Sodium Succ 100 MG/2 ML VIAL IVP SCH (05:37)
[2020-05-19 05:58] LABS: Platelet Count 61 K/mcL (140-400)
[2020-05-19] MEDS ORDERED: D5% in Water 1,000 ML IVC SCH (08:45)
[2020-05-19] MEDS ORDERED: Potassium Phosphate 44 MEQ in 0.9 % Sodium Chloride 250 ML IVPB ONE (08:45)
[2020-05-19] MEDS: Famotidine 20 MG/2 ML VIAL IVP SCH (08:59)
[2020-05-19] MEDS ORDERED: Potassium Chloride Elixir 20 MEQ/15 ML UDC PO SCH (09:00)
[2020-05-19 09:37] LABS: Bacteria,Urine Few per hpf (None-Few); Bilirubin,Urine Negative (Negative); Blood,Urine Large (Negative); Budding Yeast,Urine Few per hpf (None Seen); Clarity,Urine Clear (Clear); Color,Urine Colorless (Yellow); Glucose,Urine (UA) Normal (Normal); Hyaline Casts,Urine Few per lpf (None Seen); Ketones,Urine Negative (Negative); Leukocyte Esterase,Urine Moderate (Negative); Mucus,Urine Few per lpf (None-Few); Nitrite,Urine Negative (Negative); Protein,Urine 30 mg/dL (Neg-Trace); RBC,Urine TNTC per hpf (0-3); Specific Gravity,Urine 1.014 (1.010-1.025); Squamous Epithelial Cell,Urine Few per hpf (None-Few); Urobilinogen,Urine Normal (Normal); WBC,Urine 15-30 per hpf (0-3)
[2020-05-19 09:47] LABS: Potassium,Urine 37.5 mEq/L; Protein/Creatinine Ratio,Urine 6.27 mg/mg (0.00-0.20); Sodium, Urine 124.9 mEq/L
[2020-05-19 11:39] LABS: Lymphocytes # 0.3 K/mcL (0.6-4.6); Neutrophils # 5.2 K/mcL (1.6-8.9)
[2020-05-19 11:42] LABS: Platelet Estimate Decreased (Normal); Toxic Granulation Present (Not Present)
[2020-05-19] MEDS ORDERED: levoFLOXacin 750 MG/150 ML 750 MG/150 ML BAG IVPB SCH (11:45)
[2020-05-19] MEDS ORDERED: Dexamethasone 4 MG/ML VIAL IVP SCH (11:45)
[2020-05-19 13:39] LABS: Albumin 2.4 g/dL (3.5-5.7); Bilirubin,Direct 0.3 mg/dL (0.0-0.2); Bilirubin,Indirect 0.8 mg/dL (0.0-1.0); Bilirubin,Total 1.1 mg/dL (0.3-1.0); Globulin 2.4 g/dL (2.4-3.5); Total Protein 4.8 g/dL (6.4-8.9)
[2020-05-19 14:44] LABS: BUN/Creatinine Ratio 42 (6-26); Blood Urea Nitrogen 24 mg/dL (8-23); Calcium 8.4 mg/dL (8.6-10.3); Carbon Dioxide 21 mEq/L (23-29); Chloride 120 mEq/L (98-107); Glucose 176 mg/dL (70-105); Osmolality,Calculated 328 (280-300); Phosphorous 3.1 mg/dL (2.7-4.5); Potassium 3.6 mEq/L (3.5-5.1); Sodium 155 mEq/L (136-145); eGFR For African Americans > 60 (> 60); eGFR For Non-African Americans > 60 (> 60)
[2020-05-19] MEDS: Albumin Human 5% 12.5 GM/250 ML IV.SOLN IVC SCH ×2 (15:28→15:58)
[2020-05-19] MEDS ORDERED: Ringers Solution, Lactated 1,000 ML IVC ONE (15:59)
[2020-05-19] MEDS ORDERED: Remdesivir 200 MG in 0.9 % Sodium Chloride 100 ML IVPB ONE (16:00)
[2020-05-19] MEDS ORDERED: *HR* LORazepam 2 MG/ML VIAL IVP PRN (16:35)
[2020-05-19] MEDS: Morphine Sulfate 2 MG/ML SYRINGE IVP PRN (17:58)
[2020-05-20] MEDS: Morphine Sulfate 2 MG/ML SYRINGE IVP PRN ×2 (00:06→08:40)
[2020-05-20] MEDS: Ipratropium 1 PUFF INHALER IH SCH (04:45)
[2020-05-20] MEDS ORDERED: Pantoprazole 40 MG VIAL IVP SCH (09:00)
[2020-05-20] MEDS ORDERED: Morphine Sulfate 2 MG/ML SYRINGE IVP PRN (09:53)
[2020-05-20] MEDS ORDERED: Atropine 1% Opth Drops 100 DROP/5 ML BOTTLE SL PRN (09:53)
[2020-05-20] MEDS: *HR* LORazepam 2 MG/ML VIAL IVP PRN ×2 (10:07→14:37)
[2020-05-20] MEDS: Morphine Sulfate Oral CONC 10 MG/0.5 ML ORAL.SYG SL SCH ×3 (10:08→15:57)
[2020-05-20] MEDS ORDERED: haloperidoL 1 MG TABLET PO SCH (12:00)
[2020-05-20] MEDS ORDERED: Haloperidol Oral Conc 10 MG/5 ML UDC PO SCH (13:00)
[2020-05-20] MEDS ORDERED: Remdesivir 100 MG in 0.9 % Sodium Chloride 100 ML IVPB SCH (16:00)
[2020-05-20 17:46] VITALS: BP 0/0
== END 2020-05-20 17:55 | disposition expired | DRG 659 ==
LOC: SAMDAY 08:43 → 3ANU 16:43 → 2NNU 05-12 07:53 → SUATTDRO 05-12 15:34 → 2NNU 05-12 15:34 → 2NENU 05-12 20:21 → 3BNU 05-17 00:17
PROVIDERS: ADMIT Urology; ATTEND Internal Medicine